=== PATIENT | female | born 1930 | race Hispanic/Latino ===

== ENCOUNTER 2017-01-21 13:59 | Inpatient (IN) | payer MEDICARE ==
[2017-01-21] MEDS ORDERED: TDAP Vaccine 0.5 mL Syr IM ONE (14:23)
--- NOTE | 2017-01-21 14:25 | ED PDOC ---
Arrival/HPI - General Chief Complaint: Trauma Time Seen by Provider: 01/21/17 14:06 Historian: Patient - History of Present Illness Narrative History of Present Illness (Text): 01/21/17 14:12 Rosemary Power is an 86 year old female, whose past medical history includes diabetes, CAD with 2 coronary stents, hypertension, hypercholesterolemia, arthritis, and multiple UTIs, who presents to the emergency department complaining of a syncopal episode prior to arrival. Patient states that she was sitting in a chair but does not recall what happened. Patient was found on the floor. Patient indicates bruising and swelling to her face. Patient denies any complaint before/after incident or any other complaint at this time. Time/Duration: Prior to Arrival Symptom Onset: Sudden Symptom Course: Improving Severity Level: Mild Activities at Onset: Rest Context: Home Past Medical History - Provider Review Nursing Documentation Reviewed: Yes - Infectious Disease Hx of Infectious Diseases: None - Reproductive Menopause: Yes - Cardiac Hx Cardiac Disorders: Yes Hx Hypertension: Yes - Pulmonary Hx Respiratory Disorders: No - Neurological HX Cerebrovascular Accident: Yes - HEENT Hx HEENT Disorder: Yes Hx Cataracts: Yes (Left eye with sx) - Renal Hx Renal Disorder: No - Endocrine/Metabolic Hx Diabetes Mellitus Type 2: Yes - Hematological/Oncological Hx Blood Transfusions: No Hx Blood Transfusion Reaction: No - Integumentary Hx Dermatological Disorder: No - Musculoskeletal/Rheumatological Hx Arthritis: Yes - Gastrointestinal Hx Gastrointestinal Disorders: Yes (CONSTIPATION,GI BLEED) - Genitourinary/Gynecological Hx Genitourinary Disorders: Yes (UTI) Hx Reproductive Disorders: No - Psychiatric Hx Psychophysiologic Disorder: Yes Hx Depression: Yes Hx Substance Use: No - Surgical History Hx Coronary Stent: Yes (x2) - Anesthesia Hx Anesthesia: Yes Hx Anesthesia Reactions: No Hx Malignant Hyperthermia: No - Suicidal Assessment Feels Threatened In Home Enviroment: No Family/Social History - Physician Review Nursing Documentation Reviewed: Yes Family/Social History: No Known Family HX Smoking Status: Never Smoked Hx Alcohol Use: No Hx Substance Use: No Allergies/Home Meds Allergies/Adverse Reactions: Allergies No Known Allergies Allergy (Verified 01/21/17 14:13) Home Medications: Home Meds Medication Instructions Recorded Confirmed Atorvastatin [Lipitor] 10 mg PO DIN 09/03/16 01/21/17 Calcium/Vitamin D [Oyster Shell 1 tab PO DAILY 09/03/16 01/21/17 Calcium/Vitamin D 500 mg-200 IU] Cholecalciferol [Vitamin D 1000 IU] 1,000 unit PO DAILY 09/03/16 01/21/17 Enalapril Maleate [Vasotec] 50 mg PO DAILY 09/03/16 01/21/17 Ferrous Sulfate [Feosol] 500 mg PO DAILY 09/03/16 01/21/17 GlipiZIDE [Glucotrol] 5 mg PO BID 09/03/16 01/21/17 Insulin Glargine, Recombina 15 unit SUBCUT BID 09/03/16 01/21/17 [Lantus] Metoprolol Succinate [Toprol XL] 50 mg PO DAILY 09/03/16 01/21/17 Sertraline [Zoloft] 50 mg PO DAILY 09/03/16 01/21/17 Aspirin [Ecotrin] 81 mg PO DAILY 01/21/17 01/21/17 Insulin Human Regular [HumuLIN R] 4 units SUBCUT ACTID PRN 01/21/17 01/21/17 Review of Systems - Physician Review All systems were reviewed & negative as marked: Yes - Review of Systems Constitutional: absent: Fevers, Night Sweats Eyes: absent: Vision Changes ENT: absent: Hearing Changes Respiratory: absent: SOB, Cough Cardiovascular: Syncope. absent: Chest Pain, Other Gastrointestinal: absent: Abdominal Pain Genitourinary Female: absent: Dysuria Musculoskeletal: absent: Arthralgias Skin: absent: Rash, Pruritis Neurological: absent: Headache Endocrine: absent: Diaphoresis Hemo/Lymphatic: absent: Adenopathy Psychiatric: absent: Anxiety Physical Exam Vital Signs Reviewed: Yes Vital Signs Temp Pulse Resp BP Pulse Ox 01/21/17 18:01 97.9 F 71 20 129/72 01/21/17 17:59 97.9 F 71 20 129/72 01/21/17 17:41 98 F 75 19 127/72 01/21/17 17:30 97.7 F 85 19 132/75 01/21/17 17:02 98.5 F 75 20 129/82 99 01/21/17 14:06 97.4 F L 72 20 109/53 L 100 Temperature: Hypothermic Blood Pressure: Hypotensive Pulse: Regular Respiratory Rate: Normal Appearance: Positive for: Well-Appearing, Non-Toxic, Comfortable Pain Distress: None Mental Status: Positive for: Alert and Oriented X 3 - Systems Exam Head: Present: Atraumatic, Normocephalic Pupils: Present: PERRL Extroacular Muscles: Present: EOMI Conjunctiva: Present: Normal Mouth: Present: Moist Mucous Membranes Nose (External): Present: Other (Swelling and ecchymosis to bridge of nose) Neck: Present: Normal Range of Motion Respiratory/Chest: Present: Clear to Auscultation, Good Air Exchange. No: Respiratory Distress, Accessory Muscle Use Cardiovascular: Present: Regular Rate and Rhythm, Normal S1, S2. No: Murmurs Abdomen: Present: Normal Bowel Sounds. No: Tenderness, Distention, Peritoneal Signs Back: Present: Normal Inspection Upper Extremity: Present: Normal Inspection. No: Cyanosis, Edema Lower Extremity: Present: Normal Inspection. No: Edema Neurological: Present: GCS=15, CN II-XII Intact, Speech Normal, Motor Func Grossly Intact, Normal Sensory Function, Normal Cerebellar Funct, Norm Deep Tendon Reflexes, Gait Normal, Memory Normal, Normal 2Pt Descrimination Skin: Present: Warm, Dry, Normal Color. No: Rashes Psychiatric: Present: Alert, Oriented x 3, Normal Insight, Normal Concentration Medical Decision Making ED Course and Treatment: 01/21/17 14:26 Impression: 86 year old female complaining of syncopal episode prior to arrival Differential Diagnosis include but are not limited to: r/o cardiac, metabolic, intracranial, anemia etiology Plan: -- EKG -- Chest X-ray -- Head CT w/o contrast -- Maxillofacial CT w/o contrast -- Urinalysis -- Labs -- Boostrix Vaccine -- Reassess and disposition Prior Visits: Notes and results from previous visits were reviewed. Patient last seen in ED on 09/03/16 for generalized weakness that day. Patient was admitted to hospitalist care for further evaluation. Progress Notes: EKG shows NSR at [address]-segment elevations, normal intervals. with no prior for comparison. Interpreted by me. 01/21/17 15:23 01/21/17 15:28 01/21/17 15:33 noted anemia, pt brown stool guiac pos. blood ordered. abd soft nottp 01/21/17 15:36 dr kauffman bedside accepts. 01/21/17 15:38 - Lab Interpretations Lab Results: 01/21/17 14:40 01/21/17 14:40 Lab Results 01/21/17 14:40: Sodium 137, Potassium 5.0, Chloride 104, Carbon Dioxide 23, Anion Gap 15, BUN 48 H, Creatinine 1.0, Est GFR ( Amer) > 60, Est GFR ( Non-Af Amer) 53, Random Glucose 131 H, Calcium 9.1, Magnesium 1.9, Total Bilirubin 0.5, AST 29, ALT 28, Alkaline Phosphatase 47, Lactate Dehydrogenase 515, Total Creatine Kinase 216, Troponin I < 0.01, Total Protein 6.7, Albumin 3.6, Globulin 3.1, Albumin/Globulin Ratio 1.2 01/21/17 14:40: PT 11.4, INR 1.06, APTT 24.5 01/21/17 14:40: WBC 11.9 H D, RBC 2.32 L, Hgb 7.9 L D, Hct 24.5 L, MCV 105.6 H, MCH 34.1, MCHC 32.2, RDW 17.1 H, Plt Count 317, MPV 10.2, Gran % 75.2 H, Lymph % (Auto) 16.5 L, [place] % (Auto) 6.1 H, Eos % (Auto) 1.9, Baso % (Auto) 0.3, Gran # 8.94 H, Lymph # 2.0, [place] # 0.7 H, Eos # 0.2, Baso # 0.03 - RAD Interpretation Radiology Orders: 01/21/17 14:21 CHEST PORTABLE [RAD] Stat 01/21/17 14:23 HEAD W/O CONTRAST [CT] Stat MAXILLOFACIAL W/O CONTRAST [CT] Stat - Medication Orders Current Medication Orders: Atorvastatin Calcium (Lipitor) 10 mg PO DIN [facility] Calcium/Vitamin D (Oscal-D 250 Mg-125 Units Tab) 2 tab PO DAILY [facility] Last Admin: 01/22/17 09:41 Dose: 2 tab Glipizide (Glucotrol) 5 mg PO BID [facility] Last Admin: 01/22/17 09:41 Dose: 5 mg Metoprolol Succinate (Toprol Xl) 50 mg PO DAILY [facility] Last Admin: 01/22/17 09:41 Dose: 50 mg Non-Formulary Medication (Enalapril Maleate [Vasotec]) 50 mg PO DAILY [facility] Non-Formulary Medication (Ferrous Sulfate [Feosol]) 500 mg PO DAILY [facility] Non-Formulary Medication (Insulin Glargine, Recombina [Lantus]) 15 unit SUBCUT BID [facility] Sertraline HCl (Zoloft) 50 mg PO DAILY [facility] Last Admin: 01/22/17 09:41 Dose: 50 mg Discontinued Medications Tetanus/Reduced Diphtheria/Acell Pertussis (Boostrix Vaccine Inj) 0.5 ml IM .ONCE ONE Stop: 01/21/17 14:24 Last Admin: 01/21/17 16:44 Dose: 0.5 ml - Scribe Statement The provider has reviewed the documentation as recorded by the Maurice Chen Provider Scribe Attestation: All medical record entries made by the Vickieibmichelle were at my direction and personally dictated by me. I have reviewed the chart and agree that the record accurately reflects my personal performance of the history, physical exam, medical decision making, and the department course for this patient. I have also personally directed, reviewed, and agree with the discharge instructions and disposition. Disposition/Present on Arrival - Present on Arrival Any Indicators Present on Arrival: No History of DVT/PE: No History of Uncontrolled Diabetes: No Urinary Catheter: No History of Decub. Ulcer: No History Surgical Site Infection Following: None - Disposition Have Diagnosis and Disposition been Completed?: Yes Diagnosis: Anemia, Syncope Disposition: HOSPITALIZED Disposition Time: 03:00 Patient Problems: Current Active Problems Problem Status Onset Anemia Acute Syncope Acute Condition: FAIR
[2017-01-21 15:05] LABS: ADD MANUAL DIFF? NO
[2017-01-21 15:07] LABS: BASO # 0.03 K/mm3 (0.0-2.0); BASO % 0.3 % (0.0-3.0); EOS # 0.2 (0.0-0.7); EOS % 1.9 % (1.5-5.0); GRAN # 8.94 (1.4-6.5); GRAN % 75.2 % (50.0-68.0); HEMATOCRIT 24.5 % (36.0-48.0); LYMPH % 16.5 % (22.0-35.0); MEAN CELL VOLUME 105.6 fL (80.0-105.0); MEAN CORPUSCULAR HEMOGLOBIN 34.1 pg (25.0-35.0); MEAN CORPUSCULAR HGB CONC 32.2 g/dl (31.0-37.0); MEAN PLATELET VOLUME 10.2 fl (7.0-11.0); MONO # 0.7 (0.1-0.6); MONO % 6.1 % (1.0-6.0); PLATELET COUNT 317 10^3/uL (120.0-450.0); RED CELL DISTRIBUTION WIDTH 17.1 % (11.5-14.5); WHITE BLOOD COUNT 11.9 10^3/ul (4.5-11.0)
--- NOTE | 2017-01-21 15:18 | CT ---
PROCEDURE: CT HEAD WITHOUT CONTRAST. HISTORY: syncope COMPARISON: 05/13/2016 TECHNIQUE: Axial computed tomography images were obtained through the head/brain without intravenous contrast. Radiation dose: Total exam DLP = 743 mGy-cm. This CT exam was performed using one or more of the following dose reduction techniques: Automated exposure control, adjustment of the mA and/or kV according to patient size, and/or use of iterative reconstruction technique. FINDINGS: HEMORRHAGE: No intracranial hemorrhage. BRAIN: No mass effect or edema. There is an old lacunar infarct in the left basal ganglia. Chronic microvascular changes are seen in the periventricular white matter left greater than right. There are no acute findings VENTRICLES: Unremarkable. No hydrocephalus. CALVARIUM: Unremarkable. PARANASAL SINUSES: Unremarkable as visualized. No significant inflammatory changes. MASTOID AIR CELLS: Unremarkable as visualized. No inflammatory changes. OTHER FINDINGS: None. IMPRESSION: No acute intracranial finding
[2017-01-21 15:19] LABS: INR 1.06 (0.93-1.08); PARTIAL THROMBOPLASTIN TIME 24.5 Seconds (23.7-30.8)
[2017-01-21 15:23] LABS: ALB/GLOB RATIO 1.2 (1.1-1.8); ALKALINE PHOSPHATASE 47 U/L (38-133); ALT/SGPT 28 U/L (7-56); AST/SGOT 29 U/L (15-39); BILIRUBIN,TOTAL 0.5 mg/dL (0.2-1.3); BLOOD UREA NITROGEN 48 mg/dL (7-21); CALCIUM 9.1 mg/dL (8.4-10.5); CARBON DIOXIDE 23 mmol/L (21-33); CHLORIDE 104 mmol/L (98-107); GFR AFRICAN-AMERICAN > 60; GLUCOSE,RANDOM 131 mg/dL (70-110); MAGNESIUM 1.9 mg/dL (1.7-2.2); SODIUM 137 mmol/L (132-148); TOTAL PROTEIN 6.7 g/dL (5.8-8.3)
--- NOTE | 2017-01-21 15:32 | CT ---
PROCEDURE: CT MAXILLOFACIAL BONES WITHOUT CONTRAST HISTORY: head injury COMPARISON: None TECHNIQUE: Contiguous axial CT images of the maxillofacial bones were obtained. Coronal and sagittal reformats were generated. Radiation dose: Total exam DLP = 690 mGy-cm. This CT exam was performed using one or more of the following dose reduction techniques: Automated exposure control, adjustment of the mA and/or kV according to patient size, and/or use of iterative reconstruction technique. FINDINGS: NASAL BONES: Unremarkable. ORBITS: Unremarkable. PARANASAL SINUSES/ MASTOIDS: Clear. MAXILLA: Unremarkable. MANDIBLE/ TEMPOROMANDIBULAR JOINTS: Unremarkable. SKULL BASE: Unremarkable. TEMPORAL BONES: Middle ears and mastoid grossly unremarkable. OTHER FINDINGS: None. IMPRESSION: Negative study
[2017-01-21 15:33] LABS: TROPONIN I < 0.01 ng/mL
--- NOTE | 2017-01-21 15:36 | RAD ---
HISTORY: syncope COMPARISON: 09/03/2016 FINDINGS: LUNGS: No active pulmonary disease. PLEURA: No significant pleural effusion identified, no pneumothorax apparent. CARDIOVASCULAR: Normal. OSSEOUS STRUCTURES: No significant abnormalities. VISUALIZED UPPER ABDOMEN: Normal. OTHER FINDINGS: None. IMPRESSION: No active disease.
[2017-01-21 22:28] VITALS: BMI 31.5
[2017-01-22 07:58] LABS: HEMATOCRIT 29.8 % (36.0-48.0)
[2017-01-22] MEDS: Metoprolol Succinate 50 mg XL Tab PO SCH (09:41)
[2017-01-22] MEDS: Calcium-Vit D 250 mg-125 Units Tab UD PO SCH (09:41)
[2017-01-22] MEDS ORDERED: VITAMIN D PO SCH (10:00)
[2017-01-22] MEDS ORDERED: FERROUS SULFATE PO SCH (10:00)
[2017-01-22] MEDS ORDERED: ENALAPRIL MALEATE PO SCH (10:00)
[2017-01-22] MEDS ORDERED: CALCIUM PO SCH (10:00)
[2017-01-22] MEDS ORDERED: Non Formulary Medication (Insulin Glargine, Recombina [Lantus] 15 UNIT) SUBCUT SCH (10:00)
[2017-01-22] MEDS ORDERED: [UNRECOGNIZED DRUG - OTHER] PO SCH (10:00)
[2017-01-22] MEDS: Insulin Detemir 100 units/ml Vial (Levemir) SC SCH (21:15)
--- NOTE | 2017-01-23 01:26 | CARD ---
APPROVED REPORT EKG Measurement Heart [id number] <Conclusion> Normal sinus rhythm Low voltage QRS Septal infarct, age undetermined Abnormal ECG
[2017-01-23 06:34] LABS: HEMATOCRIT 28.2 % (36.0-48.0); MEAN CELL VOLUME 101.4 fL (80.0-105.0); MEAN CORPUSCULAR HEMOGLOBIN 33.1 pg (25.0-35.0); MEAN CORPUSCULAR HGB CONC 32.6 g/dl (31.0-37.0); MEAN PLATELET VOLUME 10.1 fl (7.0-11.0); RED CELL DISTRIBUTION WIDTH 17.8 % (11.5-14.5)
[2017-01-23 06:49] LABS: BLOOD UREA NITROGEN 48 mg/dL (7-21); CALCIUM 9.1 mg/dL (8.4-10.5); CARBON DIOXIDE 25 mmol/L (21-33); CHLORIDE 107 mmol/L (98-107); CHOLESTEROL 118 mg/dL (130-200); GFR AFRICAN-AMERICAN > 60; GLUCOSE,RANDOM 144 mg/dL (70-110); POTASSIUM 4.7 mmol/L (3.6-5.0); SODIUM 140 mmol/L (132-148)
[2017-01-23 07:06] LABS: IRON 88 ug/dL (45-180)
--- NOTE | 2017-01-23 08:23 | HP ---
The patient is an 86-year-old female. CHIEF COMPLAINT: Fall, facial injuries, syncope. HISTORY OF PRESENT ILLNESS: The patient is an 86-year-old female whose past medical history is coron lelia artery disease with 2 coronary stents, hypertension, hypercholesterolemia, arthritis, multiple UT Is. Came to the Emergency Department complaining of syncopal episode prior to arrival. The patient states that she was sitting in the chair, but does not recall what happened. The patient was found o n the floor and indicates bruising and swelling on the face and body. The patient denies any complai nts before and after incident or any other complaint at this time. PAST MEDICAL HISTORY: The patient has menopause, hypertension, left eye with surgery, cataract remov al, diabetes mellitus, uncontrolled, arthritis, history of UTI, history of psychosocial disorder, his tory of coronary artery stents x 2. FAMILY HISTORY: Father and mother noncontributory. HABITS: Never smoked, no drugs, no ethanol. ALLERGIES: The patient is not allergic with any medications. HOME MEDICATIONS: Lipitor, calcium, vitamin, Vasotec, Feosol, Glucotrol, insulin, Toprol, Zoloft, Ec otrin, insulin. REVIEW OF SYSTEMS: The patient seen and examined in the Emergency Room, and 's older daughter was sitting on the bedside. No headache, no dizziness right now. No shortness of breath, n o chest pain, no palpitation. Having scar maryuri of surgery on the chest, headache. No nausea, vomiti ng, diarrhea. PHYSICAL EXAMINATION: VITAL SIGNS: Temperature 97.4, pulse 72, respirations 20, blood pressure 109/50, pulse oximeter 98%. HEENT: Head normocephalic, atraumatic. Eyes: PERRLA. Extraocular movements intact. Conjunctivae pink. Eyelids unremarkable. Nose patent. Mucous membranes moist. NECK: Supple. No carotid bruit, no JVD, no thyromegaly. CHEST: Bilaterally symmetrical. HEART: S1, S2 positive. LUNGS: Clear to auscultation. ABDOMEN: Soft. Bowel sounds positive. No organomegaly. EXTREMITIES: No edema, no cyanosis. NEUROLOGIC: The patient is awake, alert, moving all 4 extremities. No focal deficit. ASSESSMENT AND PLAN: The patient is an 86-year-old female, came with anemia, syncopal attack, status post blood transfusion. Maxillofacial CAT scan is a negative study. CAT scan of the head shown by me and looks comfortable. No nausea, vomiting, diarrhea. No hematuria, no hematochezia. No swellin g of the legs. No chest pain, palpitations. Discussion done with the and the [id number]. Will follow up. Margaret Gomez MD cc: [id number] TT: 01/22/2017 08:52:38 en
--- NOTE | 2017-01-23 08:37 | PN ---
DATE: 01/22/2017 SUBJECTIVE: The patient seen and examined on the bedside. was standing on the bedside also. On the face, around the eyes, she is getting discoloration, like raccoon eyes. Nose skin is getting better. As per patient , no nausea, vomiting, or diarrhea; no fever, no chills; no headache, no dizziness; no swelling of the legs; no facial pain. PHYSICAL EXAMINATION: VITAL SIGNS: Temperature 97, pulse 75, blood pressure 123/51, respiratory rate 16, oxygenation 98. HEENT: Head normocephalic. Eyes: Extraocular muscles intact. Conjunctivae are clear. Skin around the eye is getting bluish color. Nose patent. Skin of the nose has scratches. Mucous membranes moist. NECK: Supple. No carotid bruit. No JVD or thyromegaly. CHEST: Bilaterally symmetrical. HEART: S1, S2 positive. LUNGS: Clear to auscultation. ABDOMEN: Soft. Bowel sounds present. No organomegaly. EXTREMITIES: No edema, no cyanosis. NEUROLOGIC: The patient is awake, alert. Moving all 4 extremities. No focal deficits. MEDICATIONS: Ferrous sulfate, Glucotrol, Levemir, Lipitor, Zestril, Zoloft. LABORATORY DATA: White blood cells 11.9. Hemoglobin on admission was 7.9; now it is 9.8. Hematocrit 29.8, platelets 317. Sodium 137, potassium 5.0, BUN 48, creatinine 1.0, glucose 131. ASSESSMENT AND PLAN: The patient is an 86-year-old lady with leukocytosis, came with symptomatic severe anemia; after packed red blood cells, hemoglobin is improving; hyperglycemia, came with syncopal attack; facial injuries, improving; has history of diabetes mellitus, with 2 coronary stents, hypertension, hypercholesterolemia, arthritis, multiple times urinary tract infections, obesity, history of cerebrovascular accident, surgery of the left eye for cataract, history of constipation and gastrointestinal bleeding, depression, coronary stents x 2 and. GI and DVT prophylaxis. 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 Will follow up. Margaret Gomez MD cc: [id number] TT: 01/23/2017 08:06:05 Confirmation # [id number] Dictation # [id number] sandra CRUZ
[2017-01-23] MEDS ORDERED: Gadodiamide 287 MG/ML VIAL (15ML) IV ONE (11:59)
[2017-01-23] MEDS: Calcium-Vit D 250 mg-125 Units Tab UD PO SCH (12:54)
[2017-01-23] MEDS: Metoprolol Succinate 50 mg XL Tab PO SCH (12:54)
--- NOTE | 2017-01-23 13:01 | MRI ---
PROCEDURE: MRI BRAIN WITH AND WITHOUT CONTRAST HISTORY: syncopy COMPARISON: 05/08/2013 MRI TECHNIQUE: Multiplanar, multisequence MR images of the brain were obtained with and without intravenous contrast enhancement. 15 cc of Omniscan FINDINGS: HEMORRHAGE: None DWI: No evidence of an acute or early subacute infarction. BRAIN PARENCHYMA: No mass,mass effect or edema. There is an old lacunar infarcts in the left basal ganglia and pena radiata. There is some ipsilateral dilatation of the left lateral ventricle. Chronic microvascular changes are seen. ENHANCEMENT: No abnormal intracranial enhancement. VENTRICLES: Unremarkable. No hydrocephalus. CRANIUM: Unremarkable. ORBITS: Grossly unremarkable. PARANASAL SINUSES/MASTOIDS: Clear VASCULAR SYSTEM: Skull base flow voids intact. OTHER FINDINGS: None . IMPRESSION: No acute intracranial findings.
--- NOTE | 2017-01-23 13:51 | CON ---
DATE: 01/23/2017 REASON FOR CONSULTATION: Episode of passing out. HISTORY OF PRESENT ILLNESS: The patient is an 86-year-old female who was admitted after episode of p assing out. The patient remembers sitting in a chair and after that she does not remember what happe toñito. Her heard a thump and when he went to the room, she was on the floor. The patient does not remember what happened. She denied any chest pain, palpitation prior to the episode. Denies to have any focal weakness in arms or legs. Denies any dizziness. REVIEW OF SYSTEMS: Denies any chest pain, shortness of breath, abdominal pain, constipation, diarrhe a, dysuria, pyuria, cough or sputum production. PAST MEDICAL HISTORY: Includes diabetes mellitus, coronary artery disease, hypertension, arthritis. PAST SURGICAL HISTORY: Includes cardiac stent placement. MEDICATIONS AT HOME: Included metoprolol, glipizide, enalapril, Zoloft, Lipitor, Ecotrin, Humulin, L antus, ferrous sulfate, vitamin ____. ALLERGIES: No known drug allergies. SOCIAL HISTORY: Denies smoking, use of alcohol or illicit drugs. FAMILY HISTORY: Reviewed and noncontributory to the case. PHYSICAL EXAMINATION: GENERAL: The patient is an elderly pleasant female lying on the bed in no acute distress. VITAL SIGNS: Her blood pressure is 139/64, heart rate is 89 per minute, breathing at the rate of 16 per minute, temperature is 98.2 degrees Fahrenheit. HEENT: Head is normocephalic. There is mild periorbital ecchymosis. Abrasion noted on the nose. NECK: Supple. There are no carotid bruits. LUNGS: Clear. CARDIOVASCULAR: S1, S2 audible. No murmurs. ABDOMEN: Soft and nontender. Bowel sounds present. NEUROLOGIC EXAMINATION: MENTAL STATUS: The patient is awake, alert, oriented to time, place, person. Speech is fluent. Nam ing and repetition normal. Memory and cognition are intact. CRANIAL NERVE EXAMINATION: Pupils are 3 mm bilaterally reactive to light. Visual hansen are full. Extraocular movements are intact. There is no facial asymmetry. Palate is upgoing bilaterally and t ongue is midline. MOTOR EXAMINATION: Tone is normal. Power is 5/5 bilaterally in all extremities. Reflexes +2 and sy mmetrical. Plantars downgoing bilaterally. CEREBELLAR EXAMINATION: [id number] shows no dysmetria. Gait is deferred at the moment. SENSORY: Intact to soft touch, pinprick, vibration. GAIT: Deferred at the moment. LABORATORY DATA: Labs reviewed, shows WBC of 7.0, hemoglobin 9.2. On admission, her hemoglobin was 7.9. Hematocrit at the moment is 28.2. Her platelets 258. Sodium is 140, potassium 4.7, chloride 1 07, carbon dioxide content 25, BUN of 48, creatinine 0.9, and glucose of 144. She had a CT scan of t he head done which shows no acute intracranial pathology. IMPRESSION: Syncope, rule out seizure versus cardiac arrhythmias. RECOMMENDATIONS: 1. The patient to have MRI of the brain without contrast. 2. The patient also to have a carotid Doppler study. 3. The patient to have an electroencephalogram. 4. The patient to have cardiac monitoring to rule out any cardiac arrhythmias. 5. Please continue supportive care and other treatment. Thank you for the opportunity to participate in the care of this patient. Bessie Owens MD cc: [id number] TT: 01/23/2017 13:51:03 Confirmation # [id number] Dictation # [id number]
--- NOTE | 2017-01-23 14:06 | CON ---
DATE: 01/23/2017 Seen and examined at the bedside earlier today. The chart was reviewed. REQUEST FOR CONSULT: Anemia. HISTORY OF PRESENT ILLNESS: This is an 86-year-old female with a past medical history of hypertensio n, diabetes mellitus, coronary artery disease x 2 stents. Came to the ER complaining of syncopal epi sode. The patient states she was sitting in a chair and fell at home. The patient was found on the floor with bruising and swelling on the face and body. She does have a scratch on her nose. The pat ient denies any nausea, vomiting. No abdominal pain. On admission, the patient had a head CT and th at was negative for any bleeding or infarction. The patient has been reported having tarry stools la night and this morning. The patient states she is on iron so her stool is already dark but denies any bright red blood. No complaints of any acid reflux or any abdominal pain. The patient on admis rico was found to have a hemoglobin of 7.9. She was given 2 units of packed RBCs. The patient was l ast admitted back in 08/2016. She had an endoscopy for melena. She was found to have 2 superficial gastric ulcers and also 2 cratered duodenal ulcers. No active bleeding. Biopsies were done, no H. p ylori. The patient had endoscopy done. The biopsies were negative for any H. pylori, showed inflamm ation. The patient never had a colonoscopy. The patient denies any symptoms of acid reflux. No com plaints of any difficulty swallowing. PAST MEDICAL HISTORY: As stated above, peptic ulcer disease, hypertension, diabetes mellitus, obesit y, arthritis, UTI, coronary artery disease with cardiac stents. Denies anticoagulants, ____. Hyperl ipidemia, CVA, depression. SURGICAL HISTORY: Coronary artery disease, stents x 2. FAMILY HISTORY: Noncontributory at this time. ALLERGIES: No known drug allergies. MEDICATIONS: Reviewed as per MAR. SOCIAL HISTORY: Denies smoking, ETOH, or substance abuse. REVIEW OF SYSTEMS: Systems reviewed with positive findings, see HPI. VITAL SIGNS: Temperature is 98.2, blood pressure is 159/69, pulse is 87, respirations 18, 97 nasal c annula. LABORATORY DATA: WBC is 11.0. H and H is 9.2 and 28.2, platelets are 258. Last PT is from 01/21 an d the PT is 11.4. INR is 1.06, PTT 24.5. Sodium is 140, K is 4.7, BUN 48, creatinine is 0.9. Iron studies done, iron 88, TIBC 336, and percent saturation is 26. B12 and folate is pending. The patie nt had chest x-ray on 01/21 that was negative for any pulmonary disease. No pleural effusion. No pn eumothorax. No active disease. Head CT: No acute intracranial findings. The patient had carotid a rtery ultrasound and brain MRI of which results are pending. PHYSICAL EXAMINATION: HEENT: Sclera is anicteric. NECK: Supple. CARDIAC: S1, S2. LUNGS: Sounds with decreased breath sounds at the bases, but no rales or wheeze. ABDOMEN: With bowel sounds, soft, nontender. No rebound or guarding. EXTREMITIES: Positive pedal pulses, no edema. FACIAL: The patient has some dried abrasions on her nose. NEUROLOGIC: Awake, alert, and oriented. ASSESSMENT: This is an 86-year-old female with a history of coronary artery disease with cardiac rocío nts x 2, diabetes mellitus, arthritis, hypertension. Came in after a syncopal episode, found to have anemia and now having melena. It looks like probable upper gastrointestinal bleed. The patient troncoso s have a history of peptic ulcer disease, ulcers in the gastric and duodenum. PLAN: We will start patient on Protonix q.12, give first dose now. Change her diet to a clear liqui d diet. Plan for endoscopy for tomorrow. Monitor H and H. The patient is on iron supplements. Rick nk you for this followup. ____ B12 and folate and check CBC around 2:00 this afternoon. Thank you for this consult and for allowing us to participate in your patient's care. We will make kira ontiveros recommendations based upon patient's clinical course. The patient was seen and case discussed with Dr. Guerrero. Deanne Gerri BENNIE cc: [id number] TT: 01/23/2017 14:05:13 Confirmation # [id number] Dictation # [id number] sn
[2017-01-23 15:39] LABS: FOLATE > 20.0 ng/mL
[2017-01-23 15:39] LABS: HEMATOCRIT 27.5 % (36.0-48.0); MEAN CELL VOLUME 101.9 fL (80.0-105.0); MEAN CORPUSCULAR HGB CONC 32.4 g/dl (31.0-37.0); MEAN PLATELET VOLUME 9.8 fl (7.0-11.0); RED CELL DISTRIBUTION WIDTH 17.8 % (11.5-14.5); WHITE BLOOD COUNT 10.9 10^3/ul (4.5-11.0)
--- NOTE | 2017-01-23 21:02 | US ---
PROCEDURE: Bilateral carotid artery duplex ultrasound HISTORY: Carotid stenosis syncope PHYSICIAN(S): Kg Rios MD. TECHNIQUE: Duplex sonography and color-flow Doppler were used to evaluate the carotid bifurcations and limited segments of the vertebral arteries bilaterally. FINDINGS: There is moderate to extensive irregular heterogeneous echogenic plaque noted at the carotid bifurcations bilaterally. The peak systolic velocity in the proximal right internal carotid artery is 90 cm/sec. This corresponds to a 20 to 39% proximal right ICA stenosis. Normal systolic velocities are noted in the proximal right external carotid artery. There is antegrade flow in the right vertebral artery. The peak systolic velocity in the proximal left internal carotid artery is 108 cm/sec. This corresponds to a 40-59 percent proximal left ICA stenosis. Normal systolic velocities are noted in the proximal left external carotid artery. There is antegrade flow in the left vertebral artery. IMPRESSION: 1. 40-59 percent proximal left ICA stenosis. 2. 20- 39 percent proximal right ICA stenosis. 3. Antegrade flow in both vertebral arteries.
[2017-01-23] MEDS: Insulin Reg-LOW-Coverage SC SCH (23:08)
[2017-01-23] MEDS: Insulin Detemir 100 units/ml Vial (Levemir) SC SCH (23:09)
[2017-01-24 06:15] LABS: ADD MANUAL DIFF? NO
[2017-01-24 06:20] LABS: BASO # 0.02 K/mm3 (0.0-2.0); BASO % 0.2 % (0.0-3.0); EOS # 0.2 (0.0-0.7); EOS % 1.4 % (1.5-5.0); GRAN % 72.3 % (50.0-68.0); HEMATOCRIT 24.9 % (36.0-48.0); LYMPH # 1.7 (1.2-3.4); LYMPH % 16.5 % (22.0-35.0); MEAN CELL VOLUME 101.6 fL (80.0-105.0); MEAN CORPUSCULAR HEMOGLOBIN 33.1 pg (25.0-35.0); MEAN CORPUSCULAR HGB CONC 32.5 g/dl (31.0-37.0); MEAN PLATELET VOLUME 9.9 fl (7.0-11.0); MONO % 9.6 % (1.0-6.0); PLATELET COUNT 258 10^3/uL (120.0-450.0); RED CELL DISTRIBUTION WIDTH 17.5 % (11.5-14.5); WHITE BLOOD COUNT 10.5 10^3/ul (4.5-11.0)
[2017-01-24] MEDS: Insulin Reg-LOW-Coverage SC SCH ×4 (07:30→21:47)
[2017-01-24] MEDS ORDERED: Propofol 10 mg/ml Inj (20 ML) ONE (08:11)
[2017-01-24] MEDS ORDERED: ePHEDrine 50 mg/ml Inj ONE (08:28)
[2017-01-24] MEDS ORDERED: Sodium Chloride 0.9% 1,000 ML IV SCH (08:45)
[2017-01-24] MEDS: Metoprolol Succinate 50 mg XL Tab PO SCH (09:43)
[2017-01-24] MEDS: Calcium-Vit D 250 mg-125 Units Tab UD PO SCH (09:47)
[2017-01-24] MEDS: Insulin Detemir 100 units/ml Vial (Levemir) SC SCH (21:47)
[2017-01-25 07:57] LABS: ADD MANUAL DIFF? NO
[2017-01-25] MEDS: Insulin Reg-LOW-Coverage SC SCH ×4 (08:00→22:11)
[2017-01-25 08:02] LABS: BASO # 0.03 K/mm3 (0.0-2.0); BASO % 0.4 % (0.0-3.0); EOS # 0.3 (0.0-0.7); EOS % 4.1 % (1.5-5.0); GRAN # 3.87 (1.4-6.5); GRAN % 54.3 % (50.0-68.0); HEMATOCRIT 27.2 % (36.0-48.0); LYMPH # 2.1 (1.2-3.4); LYMPH % 29.1 % (22.0-35.0); MEAN CELL VOLUME 97.8 fL (80.0-105.0); MEAN CORPUSCULAR HEMOGLOBIN 31.7 pg (25.0-35.0); MEAN CORPUSCULAR HGB CONC 32.4 g/dl (31.0-37.0); MEAN PLATELET VOLUME 9.7 fl (7.0-11.0); MONO # 0.9 (0.1-0.6); MONO % 12.1 % (1.0-6.0); PLATELET COUNT 236 10^3/uL (120.0-450.0); RED CELL DISTRIBUTION WIDTH 18.1 % (11.5-14.5); WHITE BLOOD COUNT 7.1 10^3/ul (4.5-11.0)
[2017-01-25 08:16] LABS: BLOOD UREA NITROGEN 35 mg/dL (7-21); CALCIUM 8.6 mg/dL (8.4-10.5); CARBON DIOXIDE 24 mmol/L (21-33); CHLORIDE 106 mmol/L (98-107); GFR AFRICAN-AMERICAN > 60; GLUCOSE,RANDOM 108 mg/dL (70-110); POTASSIUM 4.4 mmol/L (3.6-5.0); SODIUM 136 mmol/L (132-148)
[2017-01-25] MEDS: Calcium-Vit D 250 mg-125 Units Tab UD PO SCH (09:30)
[2017-01-25] MEDS: Metoprolol Succinate 50 mg XL Tab PO SCH (09:31)
--- NOTE | 2017-01-25 09:57 | CP.PCM.PN ---
Subjective - Date & Time of Evaluation Date of Evaluation: 01/25/17 Time of Evaluation: 08:10 - Subjective Subjective: S&E this am. HAd EGD yesterday found multiple ulcers w/ BX. S/P 1 unit PRBC. No reports of overt GI bleed. No c/o abdominal pain, SOB or CP. Objective - Vital Signs/Intake and Output Vital Signs (last 24 hours): Temp Pulse Resp BP Pulse Ox 97.5 F L 83 20 110/70 100 01/25/17 06:00 01/25/17 09:31 01/25/17 06:00 01/25/17 09:31 01/25/17 06:00 Intake and Output: 01/25/17 01/25/17 06:59 18:59 Intake Total 120 Output Total 200 Balance -80 - Medications Medications: Current Medications Atorvastatin Calcium (Lipitor) 10 mg PO DIN [facility] Last Admin: 01/24/17 17:12 Dose: 10 mg Calcium/Vitamin D (Oscal-D 250 Mg-125 Units Tab) 2 tab PO DAILY [facility] Last Admin: 01/25/17 09:30 Dose: 2 tab Ferrous Sulfate (Feosol) 324 mg PO DAILY [facility] Last Admin: 01/25/17 09:31 Dose: 324 mg Glipizide (Glucotrol) 5 mg PO BID [facility] Last Admin: 01/25/17 09:30 Dose: 5 mg Insulin Detemir (Levemir) 15 unit SC HS [facility] Last Admin: 01/24/17 21:47 Dose: Not Given Insulin Human Regular (Humulin R Low) 0 units SC [facility] PRN Reason: Protocol Last Admin: 01/25/17 08:00 Dose: Not Given Lisinopril (Zestril) 20 mg PO DAILY [facility] Last Admin: 01/25/17 09:31 Dose: 20 mg Metoprolol Succinate (Toprol Xl) 50 mg PO DAILY [facility] Last Admin: 01/25/17 09:31 Dose: 50 mg Pantoprazole Sodium (Protonix Inj) 40 mg IVP Q12H [facility] Last Admin: 01/25/17 09:32 Dose: 40 mg Sertraline HCl (Zoloft) 50 mg PO DAILY [facility] Last Admin: 01/25/17 09:31 Dose: 50 mg - Labs Labs: 01/25/17 07:45 01/25/17 07:45 PT 11.4 Seconds (9.9-11.8) 01/21/17 14:40 INR 1.06 (0.93-1.08) 01/21/17 14:40 APTT 24.5 Seconds (23.7-30.8) 01/21/17 14:40 - Constitutional Appears: No Acute Distress - Head Exam Head Exam: NORMAL INSPECTION - Eye Exam Eye Exam: Normal appearance. absent: Scleral icterus - ENT Exam ENT Exam: Mucous Membranes Moist - Neck Exam Neck Exam: Normal Inspection - Respiratory Exam Respiratory Exam: Clear to Ausculation Bilateral, NORMAL BREATHING PATTERN. absent: Respiratory Distress - Cardiovascular Exam Cardiovascular Exam: +S1, +S2 - GI/Abdominal Exam GI & Abdominal Exam: Soft, Normal Bowel Sounds. absent: Guarding, Tenderness, Rebound - Extremities Exam Extremities Exam: absent: Calf Tenderness, Pedal Edema - Neurological Exam Neurological Exam: Alert, Awake, Oriented x3 Assessment and Plan - Assessment and Plan (Free Text) Assessment: ASSESSMENT: Syncopy S/P GIB Anemia, s/p #units PRBC total S/P egd, ulcers gastric, duodenum, and esophageal CAD, s/p stents DM H/O PUD PLAN: Puree diet for 6 weeks repeat EGD 8 weeks continue Protonix BID monitor H/H, overt GI Bleed FU EGD BX FU serum gastrin level discuss egd findings and plan w/ pt. Seen and case discussed with Dr. Guerrero.
[2017-01-25 13:10] LABS: HEMATOCRIT 26.6 % (36.0-48.0); MEAN CELL VOLUME 98.5 fL (80.0-105.0); MEAN CORPUSCULAR HEMOGLOBIN 32.2 pg (25.0-35.0); MEAN CORPUSCULAR HGB CONC 32.7 g/dl (31.0-37.0); MEAN PLATELET VOLUME 9.8 fl (7.0-11.0); RED CELL DISTRIBUTION WIDTH 17.9 % (11.5-14.5); WHITE BLOOD COUNT 7.2 10^3/ul (4.5-11.0)
[2017-01-25] MEDS: Insulin Detemir 100 units/ml Vial (Levemir) SC SCH (22:12)
[2017-01-26 06:08] VITALS: TEMP 98.4
[2017-01-26 06:48] LABS: BLOOD UREA NITROGEN 29 mg/dL (7-21); CALCIUM 8.9 mg/dL (8.4-10.5); CARBON DIOXIDE 25 mmol/L (21-33); CHLORIDE 105 mmol/L (98-107); GFR AFRICAN-AMERICAN > 60; GLUCOSE,RANDOM 126 mg/dL (70-110); POTASSIUM 4.7 mmol/L (3.6-5.0); SODIUM 137 mmol/L (132-148)
[2017-01-26 06:55] LABS: MEAN CELL VOLUME 98.2 fL (80.0-105.0); MEAN CORPUSCULAR HEMOGLOBIN 32.6 pg (25.0-35.0); MEAN CORPUSCULAR HGB CONC 33.2 g/dl (31.0-37.0); MEAN PLATELET VOLUME 9.9 fl (7.0-11.0); RED CELL DISTRIBUTION WIDTH 17.9 % (11.5-14.5); WHITE BLOOD COUNT 7.1 10^3/ul (4.5-11.0)
[2017-01-26] MEDS: Insulin Reg-LOW-Coverage SC SCH (07:47)
[2017-01-26 08:58] VITALS: PULSE 81; RESP 20; O2SAT 96
[2017-01-26] MEDS: Calcium-Vit D 250 mg-125 Units Tab UD PO SCH (09:34)
[2017-01-26] MEDS: Metoprolol Succinate 50 mg XL Tab PO SCH (09:35)
[2017-01-26 09:44] VITALS: BP 108/39
--- NOTE | 2017-01-27 08:04 | PQF ANEMIA ---
This form is a permanent part of the medical record Dr. Gomez, Clarification of your documentation is requested to better reflect the severity of illness and intensity of treatment of your patient. Indicators present: Pt was diagnosed with melena and anemia. Please specify if the anemia is acute or chronic blood loss anemia. Thank you. [x] Anemia [x] Drop in H&H from []___ to []___ [] Hypotension [] GI Bleed [x] Transfusion(s) [] Acute bleed other sites [] Tachycardia [] Surgical Procedure Blood Loss (expected not a complication) Other:[] Location in the medical record that reflects the above clinical findings: [] Treatment Provided: [] blood tansfusion PHYSICIAN'S RESPONSE Based on your medical judgment of the clinical indicators outlined above, are you treating this patient for a known or suspected: [] Acute blood loss anemia [] Chronic blood loss anemia [] Acute on Chronic blood loss anemia [] Anemia due to malignancy [] Anemia due to chemotherapy or radiation therapy [] Anemia of Chronic Disease, please specify: [] [] Other, please indicate type of anemia []____ [] If Unable to Determine, please check the box, sign and date. Present On Admission (POA) Indicator: [] Present at the time of admission [] Not present at the time of admission [] Clinically Undetermined In responding to this query, please exercise your independent professional judgment. The fact that a question is asked does not imply that any particular answer is desired or expected. Thank you for your clarification on this documentation. If you have any questions please call:[ ] * Thank you, [ ]TERESSA CASTELLANOSmerchandise displayer NANCY
--- NOTE | 2017-01-27 23:27 | CP.PCM.PN ---
Subjective - Date & Time of Evaluation Date of Evaluation: 01/25/17 Time of Evaluation: 14:00 - Subjective Subjective: pt is seen and examined at bed side , resting , is on the bed side . no gi bleeding . no sob , chest pain . tolerating food very well . no beckwith , dizzynes . abdominal pain . looking comfortable Objective - Vital Signs/Intake and Output Vital Signs (last 24 hours): Temp Pulse Resp BP Pulse Ox 98.4 F 79 20 134/60 100 01/25/17 18:00 01/25/17 18:00 01/25/17 18:00 01/25/17 18:00 01/25/17 06:00 - Medications Medications: Current Medications Atorvastatin Calcium (Lipitor) 10 mg PO DIN [facility] Last Admin: 01/25/17 17:34 Dose: 10 mg Calcium/Vitamin D (Oscal-D 250 Mg-125 Units Tab) 2 tab PO DAILY [facility] Last Admin: 01/25/17 09:30 Dose: 2 tab Ferrous Sulfate (Feosol) 324 mg PO DAILY [facility] Last Admin: 01/25/17 09:31 Dose: 324 mg Glipizide (Glucotrol) 5 mg PO BID [facility] Last Admin: 01/25/17 17:34 Dose: 5 mg Insulin Detemir (Levemir) 15 unit SC HS [facility] Last Admin: 01/24/17 21:47 Dose: Not Given Insulin Human Regular (Humulin R Low) 0 units SC [facility] PRN Reason: Protocol Last Admin: 01/25/17 17:34 Dose: 1 units Lisinopril (Zestril) 20 mg PO DAILY [facility] Last Admin: 01/25/17 09:31 Dose: 20 mg Metoprolol Succinate (Toprol Xl) 50 mg PO DAILY [facility] Last Admin: 01/25/17 09:31 Dose: 50 mg Pantoprazole Sodium (Protonix Inj) 40 mg IVP Q12H [facility] Last Admin: 01/25/17 09:32 Dose: 40 mg Sertraline HCl (Zoloft) 50 mg PO DAILY [facility] Last Admin: 01/25/17 09:31 Dose: 50 mg - Labs Labs: 01/25/17 12:30 01/25/17 07:45 PT 11.4 Seconds (9.9-11.8) 01/21/17 14:40 INR 1.06 (0.93-1.08) 01/21/17 14:40 APTT 24.5 Seconds (23.7-30.8) 01/21/17 14:40 - Constitutional Appears: No Acute Distress - Head Exam Head Exam: NORMAL INSPECTION, NORMOCEPHALIC - Eye Exam Eye Exam: Normal appearance, PERRL Pupil Exam: NORMAL ACCOMODATION, PERRL - ENT Exam ENT Exam: Mucous Membranes Moist, Normal Exam - Neck Exam Neck Exam: Full ROM, Normal Inspection. absent: Lymphadenopathy - Respiratory Exam Respiratory Exam: Clear to Ausculation Bilateral, NORMAL BREATHING PATTERN - Cardiovascular Exam Cardiovascular Exam: REGULAR RHYTHM, +S1, +S2. absent: Murmur - GI/Abdominal Exam GI & Abdominal Exam: Soft, Normal Bowel Sounds. absent: Tenderness - Rectal Exam Rectal Exam: Deferred, NORMAL INSPECTION - Extremities Exam Extremities Exam: Calf Tenderness, Full ROM, Normal Capillary Refill, Normal Inspection. absent: Joint Swelling, Pedal Edema - Back Exam Back Exam: NORMAL INSPECTION - Neurological Exam Neurological Exam: Abnormal Gait, Alert, Awake, CN II-XII Intact, Normal Gait, Oriented x3 - Psychiatric Exam Psychiatric exam: Normal Affect, Normal Mood - Skin Skin Exam: Intact, Normal Color Assessment and Plan - Assessment and Plan (Free Text) Assessment: 86 years old lady with severe anemia . GI did egd showed multeple gastric ulcers , esophagitis , gastritis dudenitis . s/p blood transfusion . cad, s/pstents , dm , . d/d with dr steele . gi . pt should be on puree diet . monitering H/H . . oob . pt
== END 2017-01-26 11:05 | disposition home or self-care (01) | DRG 378 ==
LOC: ED 13:59 → ERH 15:35 → 2RSO 18:28
PROVIDERS: ADMIT Internal Medicine; ATTEND Internal Medicine
PROC: 30233N1 Transfusion of Nonautologous Red Blood Cells into Peripheral Vein, Percutaneous Approach (ICD-10-PCS; 2017-01-21)
PROC: 0DB68ZX Excision of Stomach, Via Natural or Artificial Opening Endoscopic, Diagnostic (ICD-10-PCS; 2017-01-24)
PROC: 0DB98ZX Excision of Duodenum, Via Natural or Artificial Opening Endoscopic, Diagnostic (ICD-10-PCS; principal; 2017-01-24 08:00)
DX: K92.1 Melena (principal); D62 Acute posthemorrhagic anemia; K25.9 Gastric ulcer, unspecified as acute or chronic, without hemorrhage or perforation; E11.65 Type 2 diabetes mellitus with hyperglycemia; K26.9 Duodenal ulcer, unspecified as acute or chronic, without hemorrhage or perforation; K31.89 Other diseases of stomach and duodenum; K21.0 Gastro-esophageal reflux disease with esophagitis; I10 Essential (primary) hypertension; E78.00 Pure hypercholesterolemia, unspecified; M19.90 Unspecified osteoarthritis, unspecified site; R55 Syncope and collapse; K59.00 Constipation, unspecified; F32.9 Major depressive disorder, single episode, unspecified; I25.10 Atherosclerotic heart disease of native coronary artery without angina pectoris; E78.5 Hyperlipidemia, unspecified; E66.9 Obesity, unspecified; Z68.32 Body mass index [BMI] 32.0-32.9, adult; Z79.82 Long term (current) use of aspirin; Z87.11 Personal history of peptic ulcer disease; Z86.73 Personal history of transient ischemic attack (TIA), and cerebral infarction without residual deficits; Z95.5 Presence of coronary angioplasty implant and graft; Z79.4 Long term (current) use of insulin; Z87.440 Personal history of urinary (tract) infections; Z98.42 Cataract extraction status, left eye

== ENCOUNTER 2017-02-10 22:15 | Inpatient (IN) | payer MEDICARE ==
[2017-02-10 22:15] VITALS: BMI 31.5
[2017-02-10 22:53] LABS: VENOUS BLOOD GAS BASE EXCESS -3.6 mmol/L (0.0-2.0); VENOUS BLOOD GAS PO2 67 mm/Hg (30-55); VENOUS BLOOD PH 7.42 (7.32-7.43)
[2017-02-10 22:58] LABS: BASO # 0.01 K/mm3 (0.0-2.0); BASO % 0.1 % (0.0-3.0); EOS # 0.1 (0.0-0.7); EOS % 0.4 % (1.5-5.0); GRAN # 13.89 (1.4-6.5); GRAN % 84.3 % (50.0-68.0); LYMPH # 2.3 (1.2-3.4); LYMPH % 13.7 % (22.0-35.0); MEAN CELL VOLUME 102.1 fL (80.0-105.0); MEAN CORPUSCULAR HEMOGLOBIN 33.5 pg (25.0-35.0); MEAN CORPUSCULAR HGB CONC 32.8 g/dl (31.0-37.0); MEAN PLATELET VOLUME 10.5 fl (7.0-11.0); MONO # 0.2 (0.1-0.6); MONO % 1.5 % (1.0-6.0); PLATELET COUNT 201 10^3/uL (120.0-450.0); RBC 3.28 10^6/uL (3.5-6.1); RED CELL DISTRIBUTION WIDTH 18.6 % (11.5-14.5); WHITE BLOOD COUNT 16.5 10^3/ul (4.5-11.0)
[2017-02-10 23:09] LABS: ALB/GLOB RATIO 1.3 (1.1-1.8); ALBUMIN 4.4 g/dL (3.0-4.8); ALT/SGPT 32 U/L (7-56); AST/SGOT 33 U/L (15-39); BLOOD UREA NITROGEN 29 mg/dL (7-21); CALCIUM 9.4 mg/dL (8.4-10.5); GFR AFRICAN-AMERICAN > 60; GFR NON-AFRICAN AMERICAN 53; HDL CHOLESTEROL 39 mg/dL (29-60); INR 1.01 (0.93-1.08); PARTIAL THROMBOPLASTIN TIME 26.8 Seconds (23.7-30.8); PROTHROMBIN TIME 10.9 Seconds (9.9-11.8)
[2017-02-10] MEDS ORDERED: Piperacill/Tazo 4.5gm in NS 4.5 GM/100 ML BAG IVPB STA (23:15)
[2017-02-10] MEDS ORDERED: Vancomycin 1gm in NS 250ml 1 GM/250 ML BAG IVPB STA (23:15)
[2017-02-10 23:20] LABS: LDL CHOLESTEROL 83 mg/dL (0-129)
[2017-02-10 23:29] LABS: TROPONIN I < 0.01 ng/mL
--- NOTE | 2017-02-10 23:42 | ED PDOC ---
Arrival/HPI - General Chief Complaint: Altered Mental Status Time Seen by Provider: 02/10/17 22:16 EM Caveat: Altered Mental Status, Dementia - History of Present Illness Narrative History of Present Illness (Text): 02/11/17 00:10 86yo female, last seen normal at 8pm by her , found to have shaking, chills, difficulty speaking. EMS called and brought to the ER for possible code stroke. states pt has a hx of dementia. Past Medical History - Provider Review Nursing Documentation Reviewed: Yes - Infectious Disease Hx of Infectious Diseases: None - Cardiac Hx Cardiac Disorders: Yes Hx Hypertension: Yes - Pulmonary Hx Respiratory Disorders: No - Neurological HX Cerebrovascular Accident: Yes - HEENT Hx HEENT Disorder: Yes Hx Cataracts: Yes (Left eye with sx) - Renal Hx Renal Disorder: No - Endocrine/Metabolic Hx Diabetes Mellitus Type 2: Yes - Hematological/Oncological Hx Blood Transfusions: No Hx Blood Transfusion Reaction: No - Integumentary Hx Dermatological Disorder: No - Musculoskeletal/Rheumatological Hx Arthritis: Yes - Gastrointestinal Hx Gastrointestinal Disorders: Yes (CONSTIPATION,GI BLEED) - Genitourinary/Gynecological Hx Genitourinary Disorders: Yes (UTI) Hx Reproductive Disorders: No - Psychiatric Hx Psychophysiologic Disorder: Yes Hx Depression: Yes Hx Substance Use: No - Surgical History Hx Coronary Stent: Yes (x2) - Anesthesia Hx Anesthesia: Yes Hx Anesthesia Reactions: No Hx Malignant Hyperthermia: No - Suicidal Assessment Feels Threatened In Home Enviroment: No Family/Social History Family/Social History: No Known Family HX Smoking Status: Never Smoked Hx Alcohol Use: No Hx Substance Use: No Allergies/Home Meds Allergies/Adverse Reactions: Allergies No Known Allergies Allergy (Verified 02/10/17 22:24) Home Medications: Home Meds Medication Instructions Recorded Confirmed Aspirin [Adult Low Dose Aspirin EC] 81 mg PO DAILY 02/10/17 02/10/17 Atorvastatin [Lipitor] 10 mg PO DAILY 02/10/17 02/10/17 Calcium Carbonate/Vitamin D3 2 tab PO DAILY 02/10/17 02/10/17 [Calcium 600 + Vit D Softgel] Cholecalciferol [Vitamin D] 1,000 iu PO DAILY 02/10/17 02/10/17 Enalapril Maleate [Vasotec] 10 mg PO DAILY 02/10/17 02/10/17 Ferrous Sulfate [Feosol] 325 mg PO DAILY 02/10/17 02/10/17 Glipizide [Glipizide Xl] 5 mg PO BID 02/10/17 02/10/17 Insulin Glargine, Recombina 15 unit SC HS 02/10/17 02/10/17 [Lantus] Insulin Human Regular [HumuLIN R] 4 units SC BRK PRN 02/10/17 02/10/17 Insulin Human Regular [HumuLIN R] 6 units SC BID PRN 02/10/17 02/10/17 Metoprolol Succinate [Toprol XL] 50 mg PO DAILY 02/10/17 02/10/17 Pantoprazole [Protonix] 40 mg PO DAILY 02/10/17 02/10/17 Review of Systems - Review of Systems Systems not reviewed;Unavailable: Dementia Physical Exam Vital Signs Reviewed: Yes Vital Signs Temp Pulse Resp BP Pulse Ox 02/11/17 01:30 101 F H 100 H 22 99/49 L 95 02/11/17 00:36 102 F H 02/11/17 00:10 108 H 20 101/46 L 97 02/10/17 23:40 111 H 22 104/41 L 96 02/10/17 23:28 100.7 F H 02/10/17 23:25 113 H 22 110/70 90 L 02/10/17 23:10 113 H 22 112/39 L 92 L 02/10/17 22:55 115 H 20 114/42 L 92 L 02/10/17 22:25 100.7 F H 120 H 20 130/75 95 Temperature: Febrile Blood Pressure: Normal Pulse: Tachycardic Respiratory Rate: Normal Appearance: Positive for: Non-Toxic, Comfortable Pain Distress: None Mental Status: Positive for: Confused Finger Stick Blood Glucose: 151 - Systems Exam Head: Present: Atraumatic, Normocephalic Pupils: Present: PERRL Extroacular Muscles: Present: EOMI Conjunctiva: Present: Normal Mouth: Present: Moist Mucous Membranes. No: Dry, Drooling Neck: Present: Normal Range of Motion. No: Meningeal Signs, MIDLINE TENDERNESS Respiratory/Chest: Present: Clear to Auscultation, Good Air Exchange. No: Respiratory Distress, Accessory Muscle Use Cardiovascular: Present: Regular Rate and Rhythm, Normal S1, S2, Peripheal Pulses Present, Tachycardic. No: Murmurs, Irregular Rhythm Abdomen: Present: Normal Bowel Sounds. No: Tenderness, Distention, Peritoneal Signs, Rebound, Guarding Back: Present: Normal Inspection. No: Midline Tenderness, Paraspinal Tenderness Upper Extremity: Present: Normal Inspection. No: Cyanosis, Edema Lower Extremity: Present: Normal Inspection. No: Edema Neurological: Present: Motor Func Grossly Intact, Other (RLE weakness, family report this is chronic due to previous injury and surgery. Pt repeating words without difficulty, but unable to formulate her own sentences) Skin: Present: Warm, Dry, Normal Color. No: Rashes Psychiatric: Present: Alert. No: Anxious, Agitated Medical Decision Making ED Course and Treatment: 02/10/17 22:26 hx obtained from and son, along with EMS EMS reported pt has aphasia with atrial fibrillation on the EKG, which is new pt seen immediately on arrival Code stroke called. 02/10/17 23:42 previous records reviewed, pt has been seen by power and recovery superintendent on 01/25/17, her EGD was found to have multiple ulcers, and she received one unit of blood. CT Head Without Intravenous Contrast FINDINGS: Brain: Old left deep white matter infarct extending from the left basal ganglia through the left periventricular pena radiata and toward the subcortical white matter in the left parietal lobe. Small focus of old infarct in the posterior left cerebellum with some low attenuation extending through the left cerebellar hemisphere and the inferior lateral aspect of uncertain age. There is minimal patchy low attenuation of deep white matter. Upper normal size of peripheral sulci. No hemorrhage. No edema. Ventricles: There is mild prominence of the central ventricular system. Bones/joints: Unremarkable. No acute fracture. Soft tissues: Unremarkable. Sinuses: Unremarkable as visualized. No acute sinusitis. Mastoid air cells: Unremarkable as visualized. No mastoid effusion. IMPRESSION: 1. Minimal chronic ischemic white matter change and atrophy which is similar to 01/21/2017. 2. Old left central infarct extending to subcortical white matter in the left parietal lobe and small old infarct in the posterior left cerebellum which is unchanged from the prior study. 3. Asymmetric decreased attenuation in the inferolateral left cerebellum of uncertain age but appears to be new since the prior study. Correlation with MR may be of benefit for further evaluation. Dictated and Authenticated by: Lupillo Yeh MD 02/10/2017 10:55 PM Eastern Time ([place] & [place]) 02/11/17 00:29 pt has a fever leukocytosis speech improving abx ordered pt in no distress at this time case and results dw Dr. Quan Montes De Oca. Likely a sepsis/infectious picture, along with hx of ulcers and blood transfusion last month, will not proceed with tpa family informed and agree with plan CT result also dw neuro event specialist food demonstrator, states will obtain MRI tmr 02/11/17 00:34 EKG shows sinus tach, 113bpm, no st-segment elevations, PVCs, interpreted by me Chest xray interpreted by ED physician shows no pneumothorax, no cardiomegaly, no infiltrates 02/11/17 02:14 UA with evidence of infection on reeval, pt is speaking full sentences without difficulty, in no distress and with no focal neurological deficits pt's bedside, states that she is now at baseline agrees with admission for further w/u and treatment 02/11/17 02:34 jer Gomez, accepted pt to her service, Dr. Salter on consult for ID - Lab Interpretations Lab Results: 02/10/17 22:30 02/10/17 22:30 Lab Results 02/11/17 01:50: pO2 62 H, VBG pH 7.32, VBG pCO2 41.0, VBG HCO3 21.1, VBG Total CO2 22.4, VBG O2 Sat (Calc) 93.7 H, VBG Base Excess -4.7 L, VBG Potassium 4.0, Glucose 176 H, Lactate 1.7, FiO2 21.0, Sodium 138.0, Chloride 108.0 H, Venous Blood Potassium 4.0 02/11/17 01:20: Urine Color Yellow, Urine Appearance Cloudy, Urine pH 6.0, Ur Specific [place] 1.020, Urine Protein 100 H, Urine Glucose (UA) Negative, Urine Ketones Negative, Urine Blood Small H, Urine Nitrate Negative, Urine Bilirubin Negative, Urine Urobilinogen 0.2, Ur Leukocyte Esterase Large H, Urine RBC 2 - 5 , Urine WBC Tntc, Ur Epithelial Cells 0 - 2, Urine Bacteria Many 02/10/17 22:47: pO2 67 H, VBG pH 7.42, VBG pCO2 31.0 L, VBG HCO3 20.1 L, VBG Total CO2 21.1 L, VBG O2 Sat (Calc) 95.7 H, VBG Base Excess -3.6 L, VBG Potassium 4.3, Glucose 149 H, Lactate 2.9 H, FiO2 21.0, Sodium 136.0, Chloride 105.0, Venous Blood Potassium 4.3 02/10/17 22:30: Blood Type O POSITIVE, Antibody Screen Negative, BBK History Checked Patient has bt 02/10/17 22:30: Sodium 136, Potassium 4.3, Chloride 103, Carbon Dioxide 18 L, Anion Gap 19, BUN 29 H, Creatinine 1.0, Est GFR ( Amer) > 60, Est GFR ( Non-Af Amer) 53, Random Glucose 138 H, Calcium 9.4, Total Bilirubin 0.8, AST 33 , ALT 32, Alkaline Phosphatase 79, Troponin I < 0.01, Total Protein 7.8, Albumin 4.4, Globulin 3.5, Albumin/Globulin Ratio 1.3, Triglycerides 169 H, Cholesterol 159, LDL Cholesterol Direct 83, HDL Cholesterol 39 02/10/17 22:30: PT 10.9, INR 1.01, APTT 26.8 02/10/17 22:30: WBC 16.5 H D, RBC 3.28 L, Hgb 11.0 L, Hct 33.5 L, MCV 102.1, MCH 33.5, MCHC 32.8, RDW 18.6 H, Plt Count 201, MPV 10.5, Gran % 84.3 H, Lymph % (Auto) 13.7 L, [place] % (Auto) 1.5, Eos % (Auto) 0.4 L, Baso % (Auto) 0.1, Gran # 13.89 H, Lymph # 2.3, [place] # 0.2, Eos # 0.1, Baso # 0.01 - RAD Interpretation Radiology Orders: 02/10/17 22:29 HEAD W/O (CODE STROKE) [CT] Stat 02/10/17 22:35 CHEST PORTABLE [RAD] Stat - Medication Orders Current Medication Orders: Discontinued Medications Acetaminophen (Tylenol 325mg Tab) 975 mg PO STAT STA Stop: 02/10/17 23:16 Last Admin: 02/10/17 23:28 Dose: 975 mg Sodium Chloride (Sodium Chloride 0.9%) 2,400 mls @ 1,000 mls/hr IV .Q2H24M STA Stop: 02/11/17 01:38 Last Admin: 02/10/17 23:28 Dose: 1,000 mls/hr Vancomycin HCl (Vancomycin 1gm) 1 gm in 250 mls @ 133.333 mls/hr IVPB STAT STA PRN Reason: Protocol Stop: 02/11/17 01:07 Last Admin: 02/11/17 00:25 Dose: 133.333 mls/hr Piperacillin Sod/Tazobactam Sod (Zosyn 4.5 Gm In Ns 100ml) 4.5 gm in 100 mls @ 200 mls/hr IVPB STAT STA PRN Reason: Protocol Stop: 02/10/17 23:44 Last Admin: 02/10/17 23:28 Dose: 200 mls/hr Sodium Chloride (Sodium Chloride 0.9%) 1,000 mls @ 1,000 mls/hr IV .Q1H STA Stop: 02/11/17 03:08 Last Admin: 02/11/17 02:17 Dose: 1,000 mls/hr Ketorolac Tromethamine (Toradol) 15 mg IVP STAT STA Stop: 02/11/17 00:37 Last Admin: 02/11/17 00:49 Dose: 15 mg NIHSS Scale (Many) Time Performed: 03:24 - How Severe is the Stoke Baseline Level of Consciousness: 0=Alert LOC to Questions: 0=Both comments correct LOC to commands: 0=Obeys both correctly Best Gaze: 0=Normal Visual: 0=No visual loss Facial: 0=Normal Motor Arm - Left: 0=No drift Motor Arm - Right: 0=No drift Motor Leg - Left: 0=No drift Motor Leg - Right: 0=No drift Limb Ataxia: 0=Absent Sensory: 0=Normal Best Language: 0=No aphasia Dysarthia: 0=Normal articulation Extinction & Inattention (Neglect): 0=Normal, no object Score: 0 Risk Level: No Stroke Risk rTPA Inclusion/Exclusion - Refusal of Treatment Patient Refused Treatment: No - Inclusion Criteria for Altepase Patient is 18 years or Older: Yes The Clinical Diagnosis of Ischemic Stroke That is Causing a Potentially Disabling Neurological Deficit: No Time of Onset is Well Established to be Less Than 270 Minute Before Treatment Would Begin: Yes Risk/Benefit Discussed With Patient/Family Member Present: Yes - Warning to TPA With Conditions Additional Condition (For 3-4.5 Hour Window): Age Greater Than 80 Disposition/Present on Arrival - Present on Arrival Any Indicators Present on Arrival: No History of DVT/PE: No History of Uncontrolled Diabetes: No Urinary Catheter: No History of Decub. Ulcer: No History Surgical Site Infection Following: None - Disposition Have Diagnosis and Disposition been Completed?: Yes Diagnosis: Urinary tract infection Disposition: HOSPITALIZED Disposition Time: 02:34 Patient Plan: Admission Patient Problems: Current Active Problems Problem Status Onset Urinary tract infection Acute Condition: FAIR
[2017-02-11 01:43] LABS: URINE BILIRUBIN NEGATIVE (NEGATIVE); URINE BLOOD SMALL (NEGATIVE); URINE GLUCOSE (UA) NEGATIVE (NEGATIVE); URINE LEUKOCYTE ESTERASE LARGE Leu/uL (NEGATIVE); URINE NITRATE NEGATIVE (NEGATIVE); URINE PROTEIN 100 mg/dL (<30 mg/dL); URINE UROBILINOGEN 0.2 E.U./dL (<1 E.U./dL)
[2017-02-11 01:52] LABS: URINE APPEARANCE CLOUDY (CLEAR); URINE COLOR YELLOW (YELLOW)
[2017-02-11 01:55] LABS: URINE WBC TNTC /hpf (0-6)
[2017-02-11 01:56] LABS: URINE BACTERIA MANY (NEG); URINE EPITHELIAL CELLS 0 - 2 /hpf (0-5)
[2017-02-11 02:04] LABS: VENOUS BLOOD GAS BASE EXCESS -4.7 mmol/L (0.0-2.0); VENOUS BLOOD GAS PO2 62 mm/Hg (30-55); VENOUS BLOOD PH 7.32 (7.32-7.43)
[2017-02-11] MEDS ORDERED: Sodium Chloride 0.9% 1,000 ML IV STA ×2 (02:09→04:21)
--- NOTE | 2017-02-11 04:22 | CP.PCM.PN ---
Subjective - Date & Time of Evaluation Date of Evaluation: 02/11/17 Time of Evaluation: 04:22 - Subjective Subjective: Patient was seen at bedside as her blood pressure was 80/38,T:97.5*F,HR:88/min. She had received 2 L saline boluses when she was in the ER. States that her told her that she vomited x 2 when she was at home. Denies chest pain, sob, palpitation, sweating, any heart conditions. This 86 year old white woman was admitted with leukocytosis, anemia, dehydration, metabolic acidosis, elevated TG/UTI. Has PMH of CAD, DM, coronary stent placement, HTN,HLD, UTI's, arthritis, cataract surgery. Objective - Vital Signs/Intake and Output Vital Signs (last 24 hours): Temp Pulse Resp BP Pulse Ox 98.2 F 93 H 16 102/44 L 96 02/11/17 03:29 02/11/17 03:29 02/11/17 03:29 02/11/17 03:29 02/11/17 03:29 - Labs Labs: PT 10.9 Seconds (9.9-11.8) 02/10/17 22:30 INR 1.01 (0.93-1.08) 02/10/17 22:30 APTT 26.8 Seconds (23.7-30.8) 02/10/17 22:30 Laboratory Last Values WBC 16.5 10^3/ul (4.5-11.0) H D 02/10/17 22:30 RBC 3.28 10^6/uL (3.5-6.1) L 02/10/17 22:30 Hgb 11.0 gm/dL (12.0-16.0) L 02/10/17 22:30 Hct 33.5 % (36.0-48.0) L 02/10/17 22:30 MCV 102.1 fL (80.0-105.0) 02/10/17 22:30 MCH 33.5 pg (25.0-35.0) 02/10/17 22:30 MCHC 32.8 g/dl (31.0-37.0) 02/10/17 22:30 RDW 18.6 % (11.5-14.5) H 02/10/17 22:30 Plt Count 201 10^3/uL (120.0-450.0) 02/10/17 22:30 MPV 10.5 fl (7.0-11.0) 02/10/17 22:30 Gran % 84.3 % (50.0-68.0) H 02/10/17 22:30 Lymph % (Auto) 13.7 % (22.0-35.0) L 02/10/17 22:30 [place] % (Auto) 1.5 % (1.0-6.0) 02/10/17 22:30 Eos % (Auto) 0.4 % (1.5-5.0) L 02/10/17 22:30 Baso % (Auto) 0.1 % (0.0-3.0) 02/10/17 22:30 Gran # 13.89 (1.4-6.5) H 02/10/17 22:30 Lymph # 2.3 (1.2-3.4) 02/10/17 22:30 [place] # 0.2 (0.1-0.6) 02/10/17 22:30 Eos # 0.1 (0.0-0.7) 02/10/17 22:30 Baso # 0.01 K/mm3 (0.0-2.0) 02/10/17 22:30 PT 10.9 Seconds (9.9-11.8) 02/10/17 22:30 INR 1.01 (0.93-1.08) 02/10/17 22:30 APTT 26.8 Seconds (23.7-30.8) 02/10/17 22:30 pO2 62 mm/Hg (30-55) H 02/11/17 01:50 VBG pH 7.32 (7.32-7.43) 02/11/17 01:50 VBG pCO2 41.0 (40-60) 02/11/17 01:50 VBG HCO3 21.1 mmol/l (21-28) 02/11/17 01:50 VBG Total CO2 22.4 mmol.L (22-28) 02/11/17 01:50 VBG O2 Sat (Calc) 93.7 % (40-65) H 02/11/17 01:50 VBG Base Excess -4.7 mmol/L (0.0-2.0) L 02/11/17 01:50 VBG Potassium 4.0 mmol/L (3.6-5.2) 02/11/17 01:50 Sodium 138.0 mmol/L (132-148) 02/11/17 01:50 Chloride 108.0 mmol/L (98-107) H 02/11/17 01:50 Glucose 176 mg/dl (65-105) H 02/11/17 01:50 Lactate 1.7 mmol/L (0.7-2.1) 02/11/17 01:50 FiO2 21.0 % 02/11/17 01:50 Sodium 136 mmol/L (132-148) 02/10/17 22:30 Potassium 4.3 mmol/L (3.6-5.0) 02/10/17 22:30 Chloride 103 mmol/L (98-107) 02/10/17 22:30 Carbon Dioxide 18 mmol/L (21-33) L 02/10/17 22:30 Anion Gap 19 (10-20) 02/10/17 22:30 BUN 29 mg/dL (7-21) H 02/10/17 22:30 Creatinine 1.0 mg/dL (0.5-1.4) 02/10/17 22:30 Est GFR ( Amer) > 60 02/10/17 22:30 Est GFR (Non-Af Amer) 53 02/10/17 22:30 Random Glucose 138 mg/dL (70-110) H 02/10/17 22:30 Calcium 9.4 mg/dL (8.4-10.5) 02/10/17 22:30 Total Bilirubin 0.8 mg/dL (0.2-1.3) 02/10/17 22:30 AST 33 U/L (15-39) 02/10/17 22:30 ALT 32 U/L (7-56) 02/10/17 22:30 Alkaline Phosphatase 79 U/L (38-133) 02/10/17 22:30 Troponin I < 0.01 ng/mL 02/10/17 22:30 Total Protein 7.8 g/dL (5.8-8.3) 02/10/17 22:30 Albumin 4.4 g/dL (3.0-4.8) 02/10/17 22:30 Globulin 3.5 gm/dL 02/10/17 22:30 Albumin/Globulin Ratio 1.3 (1.1-1.8) 02/10/17 22:30 Triglycerides 169 mg/dL (35-160) H 02/10/17 22:30 Cholesterol 159 mg/dL (130-200) 02/10/17 22:30 LDL Cholesterol Direct 83 mg/dL (0-129) 02/10/17 22:30 HDL Cholesterol 39 mg/dL (29-60) 02/10/17 22:30 Venous Blood Potassium 4.0 mmol/L (3.6-5.2) 02/11/17 01:50 Urine Color Yellow (YELLOW) 02/11/17 01:20 Urine Appearance Cloudy (CLEAR) 02/11/17 01:20 Urine pH 6.0 (4.7-8.0) 02/11/17 01:20 Ur Specific [place] 1.020 (1.005-1.035) 02/11/17 01:20 Urine Protein 100 mg/dL (<30 mg/dL) H 02/11/17 01:20 Urine Glucose (UA) Negative mg/dL (NEGATIVE) 02/11/17 01:20 Urine Ketones Negative mg/dL (NEGATIVE) 02/11/17 01:20 Urine Blood Small (NEGATIVE) H 02/11/17 01:20 Urine Nitrate Negative (NEGATIVE) 02/11/17 01:20 Urine Bilirubin Negative (NEGATIVE) 02/11/17 01:20 Urine Urobilinogen 0.2 E.U./dL (<1 E.U./dL) 02/11/17 01:20 Ur Leukocyte Esterase Large [place]/uL (NEGATIVE) H 02/11/17 01:20 Urine RBC 2 - 5 /hpf (0-2) 02/11/17 01:20 Urine WBC Tntc /hpf (0-6) 02/11/17 01:20 Ur Epithelial Cells 0 - 2 /hpf (0-5) 02/11/17 01:20 Urine Bacteria Many (NEG) 02/11/17 01:20 Blood Type O POSITIVE 02/10/17 22:30 Antibody Screen Negative 02/10/17 22:30 BBK History Checked Patient has bt 02/10/17 22:30 - Constitutional Appears: Well, No Acute Distress - Head Exam Head Exam: ATRAUMATIC, NORMAL INSPECTION, NORMOCEPHALIC - Eye Exam Eye Exam: Normal appearance - ENT Exam ENT Exam: Mucous Membranes Dry - Neck Exam Neck Exam: Normal Inspection - Respiratory Exam Respiratory Exam: NORMAL BREATHING PATTERN. absent: Accessory Muscle Use, Prolonged Expiratory Phase, Rales, Rhonchi, Wheezes, Respiratory Distress, Stridor - Cardiovascular Exam Cardiovascular Exam: REGULAR RHYTHM, +S1 (Normal.), +S2 (Normal.). absent: JVD - GI/Abdominal Exam GI & Abdominal Exam: absent: Distended - Rectal Exam Rectal Exam: Deferred - Extremities Exam Extremities Exam: Normal Inspection - Back Exam Back Exam: NORMAL INSPECTION - Neurological Exam Neurological Exam: Alert, Oriented x3 - Psychiatric Exam Psychiatric exam: Normal Affect, Normal Mood - Skin Skin Exam: Dry, Normal Color Assessment and Plan - Assessment and Plan (Free Text) Assessment: Hypotension. Dehydration. UTI. R/O cardiac event. DM. HTN. HLD. CAD. Hx coronary stent placement. Plan: Normal saline 1 L over 1 hour. EKG stat and 6 hours later. Troponin stat and 6 hours later. Continue present management as per PMD.
[2017-02-11] MEDS: Sodium Chloride 0.9% 1,000 ML IV SCH ×2 (05:45→19:42)
[2017-02-11] MEDS ORDERED: Piperacillin/Tazobact 2.25gm 2.25 GM/100 ML BAG IVPB SCH (06:47)
--- NOTE | 2017-02-11 09:22 | CARD ---
APPROVED REPORT EKG Measurement Heart [id number] <Conclusion> Sinus tachycardia with frequent premature ventricular complexes Anterior infarct, age undetermined ST & T wave abnormality, consider lateral ischemia Abnormal ECG
--- NOTE | 2017-02-11 09:22 | CARD ---
APPROVED REPORT EKG Measurement Heart [id number] <Conclusion> Sinus rhythm with frequent premature ventricular complexes Low voltage QRS Borderline ECG
--- NOTE | 2017-02-11 10:02 | RAD ---
HISTORY: CVA COMPARISON: Comparison chest 01/21/2017 FINDINGS: LUNGS: Poor inspiration with low lung volumes, mild crowded bronchovascular markings and mild bibasilar atelectasis. . PLEURA: No significant pleural effusion identified, no pneumothorax apparent. CARDIOVASCULAR: Upper limits of normal. Aorta is slightly ectatic and uncoiled. OSSEOUS STRUCTURES: No significant abn mild degenerative changes both shoulder girdles. VISUALIZED UPPER ABDOMEN: Grossly unremarkable OTHER FINDINGS: None. IMPRESSION: Poor inspiration with low lung volumes, mild crowded bronchovascular markings and mild bibasilar atelectasis. . .
--- NOTE | 2017-02-11 10:25 | CT ---
PROCEDURE: CT HEAD WITHOUT CONTRAST. HISTORY: STROKE COMPARISON: Comparison made with prior MRI of the brain dated 01/23/2017 TECHNIQUE: Axial computed tomography images were obtained through the head/brain without intravenous contrast. Radiation dose: Total exam DLP = 756.76 mGy-cm. This CT exam was performed using one or more of the following dose reduction techniques: Automated exposure control, adjustment of the mA and/or kV according to patient size, and/or use of iterative reconstruction technique. FINDINGS: HEMORRHAGE: No acute parenchymal, subarachnoid nor extra-axial hemorrhage. BRAIN: Chronic periventricular white matter ischemic changes are again seen extending peripherally into the deep and subcortical white matter both cerebral hemispheres. More discrete chronic appearing infarct in the left basal ganglia and left superior frontal deep and subcortical white matter again noted as well associate with localized ex vacuo dilatation of the left frontal horn and anterior body left lateral ventricle. Scattered bilateral cerebellar and brainstem ischemic changes are less well seen on this study compared to high-resolution MRI. Moderate central volume loss also present not withstanding the aforementioned localized ex vacuo dilatation left frontal horn and anterior body left lateral ventricle. Vascular calcifications both carotid siphons and vertebral arteries. VENTRICLES: No obstructive hydrocephalus. . CALVARIUM: There are no acute calvarial fractures. PARANASAL SINUSES: Frontal sinuses remain hypoplastic/ underpneumatized. Remaining visualized paranasal sinuses are otherwise well developed and currently well-aerated MASTOID AIR CELLS: Unremarkable as visualized. No inflammatory changes. OTHER FINDINGS: Changes of right-sided cataract surgery IMPRESSION: No acute intracranial hemorrhage. Chronic white matter and left basal ganglia ischemic changes with ex vacuo dilatation left frontal horn and anterior body left lateral ventricle. 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 . Moderate central volume loss
[2017-02-11] MEDS: Pantoprazole 40 mg EC Tab PO SCH (10:26)
[2017-02-11] MEDS: Calcium-Vit D 250 mg-125 Units Tab UD PO SCH (10:26)
[2017-02-11] MEDS: Insulin Detemir 100 units/ml Vial (Levemir) SC SCH ×2 (10:56→21:36)
[2017-02-11] MEDS: GlipiZIDE 5 mg SR Tab PO SCH ×2 (10:57→18:49)
--- NOTE | 2017-02-11 11:57 | CP.PCM.CON ---
History of Present Illness - History of Present Illness History of Present Illness: 86 year old female with PMH of CAD S/P PCI, DM, HTN, dyslipidemia, history of arthritis, history of cataract surgery, obesity with BMI 35 was brought in by the family because of lethargy as well as shaking chills and fever since last night. There was no note of convulsions, no vomiting, no but apparently the patient was nauseated, no diarrhea, no loss of consciousness. In the ED, she was noted to have low BP which responded to fluids. She is now more awake and alert, but still had fever this morning. In the ED, urinalysis showed pyuria. Infectious Diseases consult is requested to further evaluate and manage. The patient is feeling somewhat better, no headache or dizziness, no sore throat, no cough or rhinorrhea, no chest pain, no abdominal pain. Review of Systems - Review of Systems All systems: reviewed and no additional remarkable complaints except (as per HPI ) Past Patient History - Infectious Disease Hx of Infectious Diseases: None - Past Social History Smoking Status: Never Smoked - CARDIAC Hx Cardiac Disorders: Yes Hx Hypercholesterolemia: Yes - PULMONARY Hx Respiratory Disorders: No - NEUROLOGICAL HX Cerebrovascular Accident: Yes Hx Dementia: Yes - HEENT Hx Cataracts: Yes - RENAL Hx Chronic Kidney Disease: No - ENDOCRINE/METABOLIC Hx Diabetes Mellitus Type 1: Yes - HEMATOLOGICAL/ONCOLOGICAL Hx Blood Transfusions: No Hx Blood Transfusion Reaction: No - INTEGUMENTARY Hx Dermatological Problems: No - MUSCULOSKELETAL/RHEUMATOLOGICAL Hx Falls: Yes Hx Osteoporosis: Yes - GASTROINTESTINAL Hx Gastrointestinal Disorders: Yes (CONSTIPATION,GI BLEED) - GENITOURINARY/GYNECOLOGICAL Hx Genitourinary Disorders: Yes (UTI) Hx Reproductive Disorders: No - PSYCHIATRIC Hx Anxiety: Yes Hx Depression: Yes Hx Substance Use: No - SURGICAL HISTORY Hx Cardiac Catheterization: Yes Hx Coronary Stent: Yes (x2) Hx Orthopedic Surgery: Yes - ANESTHESIA Hx Anesthesia: Yes Hx Anesthesia Reactions: No Hx Malignant Hyperthermia: No Meds Allergies/Adverse Reactions: Allergies Allergy/AdvReac Type Severity Reaction Status Date / Time No Known Allergies Allergy Verified 02/10/17 22:24 - Medications Medications: Current Medications Sodium Chloride (Sodium Chloride 0.9%) 1,000 mls @ 80 mls/hr IV .[id number] LINDSEY Last Admin: 02/11/17 05:45 Dose: 80 mls/hr Piperacillin Sod/Tazobactam Sod (Zosyn 4.5 Gm In Ns 100ml) 4.5 gm in 100 mls @ 200 mls/hr IVPB Q6 LINDSEY PRN Reason: Protocol Stop: 02/11/17 12:29 Physical Exam - Constitutional Appears: Non-toxic, No Acute Distress - Head Exam Head Exam: NORMAL INSPECTION - ENT Exam ENT Exam: Mucous Membranes Moist - Neck Exam Neck exam: Negative for: Meningismus - Respiratory Exam Respiratory Exam: Decreased Breath Sounds - Cardiovascular Exam Cardiovascular Exam: +S1, +S2 - GI/Abdominal Exam GI & Abdominal Exam: Soft. absent: Tenderness Results - Vital Signs Recent Vital Signs: Last Vital Signs Temp 97.5 F L 02/11/17 04:37 Pulse 89 02/11/17 04:37 Resp 20 02/11/17 04:37 BP 80/38 L 02/11/17 04:37 Pulse Ox 96 02/11/17 03:29 - Labs Result Diagrams: 02/10/17 22:30 02/10/17 22:30 Labs: Laboratory Results - last 24 hr 02/11/17 05:50 Troponin I 0.06 D Assessment & Plan - Assessment and Plan (Free Text) Plan: Assessment Consider sepsis due to urinary tract infection CAD S/P PCI DM HTN dyslipidemia history of arthritis history of cataract surgery obesity with BMI 35 Plan Patient has been given a dose of IV Vancomycin and Zosyn in the ED - will start Cefepime pending blood and urine cx will order CT scan of the abdomen and pelvis will monitor clinical response and trend fever curve
[2017-02-11] MEDS: Cefepime IV 2 gm in NS 2 GM/100 ML BAG IVPB SCH ×2 (12:25→21:35)
--- NOTE | 2017-02-11 12:26 | CP.PCM.CON ---
<Shane Cooney - Last Filed: 02/11/17 12:27> History of Present Illness - History of Present Illness History of Present Illness: PGY-[address] Montes De [facility] Neurology Service: Reason for consult: AMS This is an 86 year old female with PMHx CAD S/P PCI, DM, HTN, dyslipidemia, arthritis, cognitive impairment who presented to the hospital with slurred speech. Patient was brought in by family due to increased lethargy with fevers, chills, and vomiting. Patient was septic and given fluids in the ED. Urinalysis reveals evidence of UTI which is the likely source of infection. This morning the patient reports that she feels better. Episodes of slurred speech are transient. Patient is complaining of fevers and chills. Denies weakness, headache, dizziness, CP, SOB, abdominal pain, dysuria. PMHx: CAD s/p stents, DM, HLD, arthritis, cognitive impairment PSHx: Cataract surgery Allergies: NKDA Social: Denies tobacco, alcohol, drugs. Review of Systems - Constitutional Constitutional: Chills, Fever. absent: Headache, Weakness - EENT Eyes: absent: Change in Vision Ears: absent: Decreased Hearing - Cardiovascular Cardiovascular: absent: Chest Pain - Respiratory Respiratory: absent: Dyspnea - Gastrointestinal Gastrointestinal: absent: Abdominal Pain, Nausea, Vomiting - Genitourinary Genitourinary: absent: Dysuria - Musculoskeletal Musculoskeletal: absent: Muscle Weakness - Neurological Neurological: absent: Numbness, Headaches, Tingling, Weakness Past Patient History - Infectious Disease Hx of Infectious Diseases: None - Past Social History Smoking Status: Never Smoked - CARDIAC Hx Cardiac Disorders: Yes Hx Hypercholesterolemia: Yes - PULMONARY Hx Respiratory Disorders: No - NEUROLOGICAL HX Cerebrovascular Accident: Yes Hx Dementia: Yes - HEENT Hx Cataracts: Yes - RENAL Hx Chronic Kidney Disease: No - ENDOCRINE/METABOLIC Hx Diabetes Mellitus Type 1: Yes - HEMATOLOGICAL/ONCOLOGICAL Hx Blood Transfusions: No Hx Blood Transfusion Reaction: No - INTEGUMENTARY Hx Dermatological Problems: No - MUSCULOSKELETAL/RHEUMATOLOGICAL Hx Falls: Yes Hx Osteoporosis: Yes - GASTROINTESTINAL Hx Gastrointestinal Disorders: Yes (CONSTIPATION,GI BLEED) - GENITOURINARY/GYNECOLOGICAL Hx Genitourinary Disorders: Yes (UTI) Hx Reproductive Disorders: No - PSYCHIATRIC Hx Anxiety: Yes Hx Depression: Yes Hx Substance Use: No - SURGICAL HISTORY Hx Cardiac Catheterization: Yes Hx Coronary Stent: Yes (x2) Hx Orthopedic Surgery: Yes - ANESTHESIA Hx Anesthesia: Yes Hx Anesthesia Reactions: No Hx Malignant Hyperthermia: No Meds Allergies/Adverse Reactions: Allergies Allergy/AdvReac Type Severity Reaction Status Date / Time No Known Allergies Allergy Verified 02/10/17 22:24 - Medications Medications: Current Medications Acetaminophen (Tylenol 325mg Tab) 650 mg PO Q6H PRN PRN Reason: Fever >100.4 F Last Admin: 02/11/17 11:12 Dose: 650 mg Aspirin (Ecotrin) 81 mg PO DAILY [facility] Last Admin: 02/11/17 10:26 Dose: 81 mg Atorvastatin Calcium (Lipitor) 10 mg PO DAILY [facility] Last Admin: 02/11/17 10:50 Dose: 10 mg Calcium/Vitamin D (Oscal-D 250 Mg-125 Units Tab) 2 tab PO DAILY [facility] Last Admin: 02/11/17 10:26 Dose: 2 tab Ferrous Sulfate (Feosol) 324 mg PO DAILY [facility] Last Admin: 02/11/17 10:26 Dose: 324 mg Glipizide (Glucotrol Xl) 5 mg PO BID [facility] Last Admin: 02/11/17 10:57 Dose: Not Given Sodium Chloride (Sodium Chloride 0.9%) 1,000 mls @ 80 mls/hr IV .[id number] [facility] Last Admin: 02/11/17 05:45 Dose: 80 mls/hr Cefepime HCl (Maxipime 2gm) 2 gm in 100 mls @ 100 mls/hr IVPB Q12 [facility] PRN Reason: Protocol Stop: 02/16/17 12:01 Insulin Detemir (Levemir) 7 unit SC DAILY [facility] Last Admin: 02/11/17 10:56 Dose: Not Given Insulin Detemir (Levemir) 8 unit SC [facility] Ondansetron HCl (Zofran Inj) 4 mg IVP Q6H PRN PRN Reason: Nausea/Vomiting Pantoprazole Sodium (Protonix Ec Tab) 40 mg PO DAILY [facility] Last Admin: 02/11/17 10:26 Dose: 40 mg Physical Exam - Constitutional Appears: Non-toxic, No Acute Distress - Head Exam Head Exam: ATRAUMATIC, NORMAL INSPECTION, NORMOCEPHALIC - Eye Exam Eye Exam: EOMI, PERRL - ENT Exam ENT Exam: Mucous Membranes Moist - Respiratory Exam Additional comments: Coarse breath sounds bilaterally. - Cardiovascular Exam Cardiovascular Exam: REGULAR RHYTHM - GI/Abdominal Exam GI & Abdominal Exam: Normal Bowel Sounds, Soft - Neurological Exam Neurological exam: Alert, CN II-XII Intact, Oriented x3, Reflexes Normal Additional comments: Manual muscle testing 5/5 bilateral upper and lower extremities. No pronator drift. Down-going plantar responses. Poor attention at times. Able to distinguish family members. Results - Vital Signs Recent Vital Signs: Last Vital Signs Temp 97.5 F L 02/11/17 06:00 Pulse 89 02/11/17 06:00 Resp 20 02/11/17 06:00 BP 92/45 L 02/11/17 06:00 Pulse Ox 94 L 02/11/17 06:00 - Labs Result Diagrams: 02/10/17 22:30 02/10/17 22:30 Labs: Laboratory Results - last 24 hr 02/11/17 02/11/17 02/11/17 05:50 07:52 11:25 POC Glucose (mg/dL) 161 H Troponin I 0.06 D 0.17 H* D Assessment & Plan - Assessment and Plan (Free Text) Assessment: This is an 86 year old female with PMHx CAD S/P PCI, DM, HTN, dyslipidemia, arthritis, cognitive impairment who presented to the hospital with slurred speech. It is likely that an episode of cerebral hypoperfusion along with underlying sepsis superimposed on baseline cognitive impairment is what caused the change in mental status in terms of the transient slurred speech. Sepsis likely from UTI as evidenced by urinalysis. Leukocytosis 16.5. 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 CT Head 02/10/17 BRAIN: Chronic periventricular white matter ischemic changes are again seen extending peripherally into the deep and subcortical white matter both cerebral hemispheres. More discrete chronic appearing infarct in the left basal ganglia and left superior frontal deep and subcortical white matter again noted as well associate with localized ex vacuo dilatation of the left frontal horn and anterior body left lateral ventricle. Scattered bilateral cerebellar and brainstem ischemic changes are less well seen on this study compared to high- resolution MRI. Moderate central volume loss also present not withstanding the aforementioned localized ex vacuo dilatation left frontal horn and anterior body left lateral ventricle. Vascular calcifications both carotid siphons and vertebral arteries. IMPRESSION: No acute intracranial hemorrhage. Chronic white matter and left basal ganglia ischemic changes with ex vacuo dilatation left frontal horn and anterior body left lateral ventricle. 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 . Moderate central volume loss MRI Brain 01/23/17 HEMORRHAGE: None DWI: No evidence of an acute or early subacute infarction. BRAIN PARENCHYMA: No mass,mass effect or edema. There is an old lacunar infarcts in the left basal ganglia and pena radiata. There is some ipsilateral dilatation of the left lateral ventricle. Chronic microvascular changes are seen. IMPRESSION: No acute intracranial findings. Plan: 1) Maintain adequate hydration. 2) Monitor and correct electrolytes. 3) Avoid hypotensive episodes. 4) Continue antibiotics as per ID recommendation. 5) Continue ASA 81 mg and Lipitor 10 mg daily for stroke prevention. 6) Patient's family was advised on cognitive exercises for the patient to be done at home. Patient is neurologically stable. Discussed with patient and family at bedside. Thank you for this consult. Case discussed with Dr. Falguni Cooney, PGY-1 - Date & Time Date: 02/11/17 Time: 11:45 <Danielito Montes De Oca - Last Filed: 02/11/17 14:40> Meds - Medications Medications: Current Medications Acetaminophen (Tylenol 325mg Tab) 650 mg PO Q6H PRN PRN Reason: Fever >100.4 F Last Admin: 02/11/17 11:12 Dose: 650 mg Aspirin (Ecotrin) 81 mg PO DAILY [facility] Last Admin: 02/11/17 10:26 Dose: 81 mg Atorvastatin Calcium (Lipitor) 10 mg PO DAILY [facility] Last Admin: 02/11/17 10:50 Dose: 10 mg Calcium/Vitamin D (Oscal-D 250 Mg-125 Units Tab) 2 tab PO DAILY [facility] Last Admin: 02/11/17 10:26 Dose: 2 tab Ferrous Sulfate (Feosol) 324 mg PO DAILY [facility] Last Admin: 02/11/17 10:26 Dose: 324 mg Glipizide (Glucotrol Xl) 5 mg PO BID [facility] Last Admin: 02/11/17 10:57 Dose: Not Given Sodium Chloride (Sodium Chloride 0.9%) 1,000 mls @ 80 mls/hr IV .[id number] [facility] Last Admin: 02/11/17 05:45 Dose: 80 mls/hr Cefepime HCl (Maxipime 2gm) 2 gm in 100 mls @ 100 mls/hr IVPB Q12 [facility] PRN Reason: Protocol Stop: 02/16/17 12:01 Last Admin: 02/11/17 12:25 Dose: 100 mls/hr Insulin Detemir (Levemir) 7 unit SC DAILY [facility] Last Admin: 02/11/17 10:56 Dose: Not Given Insulin Detemir (Levemir) 8 unit SC [facility] Ondansetron HCl (Zofran Inj) 4 mg IVP Q6H PRN PRN Reason: Nausea/Vomiting Pantoprazole Sodium (Protonix Ec Tab) 40 mg PO DAILY [facility] Last Admin: 02/11/17 10:26 Dose: 40 mg Results - Vital Signs Recent Vital Signs: Last Vital Signs Temp 98.3 F 02/11/17 12:00 Pulse 109 H 02/11/17 12:00 Resp 18 02/11/17 12:00 BP 124/55 L 02/11/17 12:00 Pulse Ox 94 L 02/11/17 06:00 - Labs Result Diagrams: 02/10/17 22:30 02/10/17 22:30 Labs: Laboratory Results - last 24 hr 02/11/17 02/11/17 02/11/17 05:50 07:52 11:25 POC Glucose (mg/dL) 161 H Troponin I 0.06 D 0.17 H* D Attending/Attestation - Attestation I have personally seen and examined this patient.: Yes I have fully participated in the care of the patient.: Yes I have reviewed all pertinent clinical information: Yes
[2017-02-11] MEDS ORDERED: Iohexol 350 MG/100 ML VIAL ONE (12:30)
--- NOTE | 2017-02-11 13:41 | CARD ---
APPROVED REPORT EKG Measurement Heart [id number] <Conclusion> Sinus tachycardia Low voltage QRS Cannot rule out Anterior infarct, age undetermined Abnormal ECG
--- NOTE | 2017-02-11 16:06 | CT ---
PROCEDURE: CT scan abdomen and pelvis dated 02/11/2017. HISTORY: rule out intra-abdominal infection COMPARISON: Comparison made with CT scan abdomen and pelvis dated 05/08/2013. TECHNIQUE: Contiguous axial images of the abdomen and pelvis pelvis performed following intravenous injection of approximately 90 cc Omnipaque 350 contrast material. Additional 2 dimensional sagittal and coronal reformats provided. Coronal and Sagittal reformats generated. Radiation dose: Total exam DLP = 903.53 mGy-cm. This CT exam was performed using one or more of the following dose reduction techniques: Automated exposure control, adjustment of the mA and/or kV according to patient size, and/or use of iterative reconstruction technique. FINDINGS: LOWER THORAX: The liver exhibits mild bibasilar atelectasis right greater than left. Small hiatal hernia with slight wall thickening of the distal esophagus could be due to protrusion of gastric mucosa. Possibility of esophagitis or other intrinsic/ invasive wall lesion not excluded. Heart size is mildly enlarged. Mitral valve is heavily calcified. No evidence of significant pericardial effusion. LIVER: Liver mildly enlarged 20 cm CC dimension. Very mild fatty hepatic infiltration. No obvious hepatic mass collection or calcification. Portal and splenic veins are opacified. GALLBLADDER AND BILE DUCTS: Gallbladder is physiologically distended. No evidence of intraluminal gallbladder calculi. PANCREAS: The pancreas is slightly atrophic. No obvious pancreatic mass collection or calcification. SPLEEN: Spleen exhibits normal size and attenuation pattern. There is a vague small approximately 7 mm elliptical shaped focus low attenuation posterior inferior margin of the splenic parenchyma too small characterize. ADRENALS: No adrenal lesions. KIDNEYS AND URETERS: Re- demonstrated is a large partially exophytic cyst upper pole left kidney which measures approximately 6.95 x 6.1 cm. Smaller exophytic cyst anterior aspect mid - lower pole left kidney . Infiltration changes are seen in the surrounding left perinephric and pararenal spaces. . These findings are of uncertain etiology though could be postinflammatory of. There also appears to be some mild enhancement of the proximally urothelium ; rule out ascending UTI. . There appears to be some mild scarring changes and cortical volume loss lower pole left kidney. No evidence of obstructing nephrolithiasis. BLADDER: Urinary bladder is physiologically distended. No evidence of intraluminal urinary bladder calculi however there is a small bubble of air within the anterior superior margin of the urinary bladder nonspecific. If there has not been recent instrumentation, the possibility of infection with gas-forming organism not excluded. Clinical correlation recommended. . REPRODUCTIVE: Uterus and adnexal structures grossly unremarkable. APPENDIX: Normal-appearing appendix best seen on coronal image number [id number]. No periappendiceal inflammatory changes. BOWEL: Evaluation of the bowel is limited due to the lack of oral contrast material. The stomach is incompletely distended which may in part account for thick-walled appearance. Possibility of gastritis or other intrinsic/invasive wall lesion not excluded. Visualized loops of small bowel exhibit normal contour and caliber. No evidence of acute mechanical small bowel obstruction. Stool and air seen throughout the colon. The mid and distal descending colon is collapsed which presumably accounts for slight thick-walled appearance ; peristalsis may contribute. No obvious inflammatory changes seen in the adjacent mesenteric. Moderate amount of stool is seen within distal sigmoid and rectum suggesting mild fecal retention. PERITONEUM: No evidence of free intraperitoneal air. No free or loculated fluid collections. LYMPH NODES: Unremarkable. No enlarged lymph nodes. VASCULATURE: Unremarkable. No aortic aneurysm. BONES: Multilevel degenerative spondylosis of the lower thoracic and lumbar spine. OTHER FINDINGS: None. IMPRESSION: Infiltration changes are seen in the surrounding left perinephric and pararenal spaces. . These findings are of uncertain etiology though could be postinflammatory of. There also appears to be some mild enhancement of the proximally urothelium ; rule out ascending UTI. In addition . , there is a small bubble of air is present within the urinary bladder which could be secondary to recent instrumentation however if there has been no recent instrumentation the possibility of a infection with gas-forming organism must be considered. Bilateral renal cysts. Hepatomegaly. Mild fatty hepatic infiltration. Note these findings were discussed with 2 [facility] approximately 4pm . with written down and read back verification.
--- NOTE | 2017-02-11 23:32 | CP.PCM.HP ---
History of Present Illness - History of Present Illness History of Present Illness: This is an 86 year old female with PMHx CAD S/P PCI, DM, HTN, dyslipidemia, arthritis, cognitive impairment who presented to the hospital with slurred speech. Patient was brought in by family due to increased lethargy with fevers, chills, and vomiting. Patient was septic and given fluids in the ED. Urinalysis reveals evidence of UTI which is the likely source of infection. This morning the patient reports that she feels better. Episodes of slurred speech are transient. Patient is complaining of fevers and chills. Denies weakness, headache, dizziness, CP, SOB, abdominal pain, dysuria. septic code called id consult called PMHx: CAD s/p stents, DM, HLD, arthritis, cognitive impairment PSHx: Cataract surgery Present on Admission - Present on Admission Any Indicators Present on Admission: No Past Patient History - Infectious Disease Hx of Infectious Diseases: None - Past Social History Smoking Status: Never Smoked - CARDIAC Hx Cardiac Disorders: Yes Hx Hypercholesterolemia: Yes - PULMONARY Hx Respiratory Disorders: No - NEUROLOGICAL HX Cerebrovascular Accident: Yes Hx Dementia: Yes - HEENT Hx Cataracts: Yes - RENAL Hx Chronic Kidney Disease: No - ENDOCRINE/METABOLIC Hx Diabetes Mellitus Type 1: Yes - HEMATOLOGICAL/ONCOLOGICAL Hx Blood Transfusions: No Hx Blood Transfusion Reaction: No - INTEGUMENTARY Hx Dermatological Problems: No - MUSCULOSKELETAL/RHEUMATOLOGICAL Hx Falls: Yes Hx Osteoporosis: Yes - GASTROINTESTINAL Hx Gastrointestinal Disorders: Yes (CONSTIPATION,GI BLEED) - GENITOURINARY/GYNECOLOGICAL Hx Genitourinary Disorders: Yes (UTI) Hx Reproductive Disorders: No - PSYCHIATRIC Hx Anxiety: Yes Hx Depression: Yes Hx Substance Use: No - SURGICAL HISTORY Hx Cardiac Catheterization: Yes Hx Coronary Stent: Yes (x2) Hx Orthopedic Surgery: Yes - ANESTHESIA Hx Anesthesia: Yes Hx Anesthesia Reactions: No Hx Malignant Hyperthermia: No Meds Allergies/Adverse Reactions: Allergies Allergy/AdvReac Type Severity Reaction Status Date / Time No Known Allergies Allergy Verified 02/10/17 22:24 Physical Exam - Constitutional Appears: Well - Head Exam Head Exam: ATRAUMATIC, NORMAL INSPECTION, NORMOCEPHALIC - Eye Exam Eye Exam: EOMI, Normal appearance, PERRL Pupil Exam: NORMAL ACCOMODATION, PERRL - ENT Exam ENT Exam: Mucous Membranes Moist, Normal Exam - Neck Exam Neck exam: Positive for: Normal Inspection - Respiratory Exam Respiratory Exam: Clear to Auscultation Bilateral, NORMAL BREATHING PATTERN - Cardiovascular Exam Cardiovascular Exam: REGULAR RHYTHM - GI/Abdominal Exam GI & Abdominal Exam: Normal Bowel Sounds, Soft. absent: Tenderness - Rectal Exam Rectal Exam: NORMAL INSPECTION - Exam Exam: Circumcision, NORMAL INSPECTION External exam: NORMAL EXTERNAL EXAM Speculum exam: NORMAL SPECULUM EXAM Bimanual exam: NORMAL BIMANUAL EXAM - Extremities Exam Extremities exam: Positive for: normal inspection - Back Exam Back exam: NORMAL INSPECTION - Neurological Exam Neurological exam: Alert, CN II-XII Intact, Normal Gait, Oriented x3, Reflexes Normal - Psychiatric Exam Psychiatric exam: Normal Affect, Normal Mood - Skin Skin Exam: Dry, Intact, Normal Color, Warm Results - Vital Signs Recent Vital Signs: Last Vital Signs Temp 98.3 F 02/11/17 18:00 Pulse 83 02/11/17 20:35 Resp 17 02/11/17 18:00 BP 98/50 L 02/11/17 20:35 Pulse Ox 94 L 02/11/17 06:00 - Labs Result Diagrams: 02/10/17 22:30 02/10/17 22:30 Labs: Laboratory Results - last 24 hr 02/11/17 02/11/17 02/11/17 05:50 07:52 11:25 POC Glucose (mg/dL) 161 H Troponin I 0.06 D 0.17 H* D 02/11/17 02/11/17 02/11/17 11:27 16:25 21:12 POC Glucose (mg/dL) 114 H 160 H 128 H Troponin I Assessment & Plan - Assessment and Plan (Free Text) Assessment: This is an 86 year old female with PMHx CAD S/P PCI, DM, HTN, dyslipidemia, arthritis, cognitive impairment who presented to the hospital with slurred speech. It is likely that an episode of cerebral hypoperfusion along with underlying sepsis superimposed on baseline cognitive impairment is what caused the change in mental status in terms of the transient slurred speech. Sepsis likely from UTI as evidenced by urinalysis. Leukocytosis 16.5. 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 CT Head 02/10/17 BRAIN: Chronic periventricular white matter ischemic changes are again seen extending peripherally into the deep and subcortical white matter both cerebral hemispheres. More discrete chronic appearing infarct in the left basal ganglia and left superior frontal deep and subcortical white matter again noted as well associate with localized ex vacuo dilatation of the left frontal horn and anterior body left lateral ventricle. Scattered bilateral cerebellar and brainstem ischemic changes are less well seen on this study compared to high- resolution MRI. Moderate central volume loss also present not withstanding the aforementioned localized ex vacuo dilatation left frontal horn and anterior body left lateral ventricle. Vascular calcifications both carotid siphons and vertebral arteries. IMPRESSION: No acute intracranial hemorrhage. Chronic white matter and left basal ganglia ischemic changes with ex vacuo dilatation left frontal horn and anterior body left lateral ventricle. 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 . Moderate central volume loss MRI Brain 01/23/17 HEMORRHAGE: None DWI: No evidence of an acute or early subacute infarction. BRAIN PARENCHYMA: No mass,mass effect or edema. There is an old lacunar infarcts in the left basal ganglia and pena radiata. There is some ipsilateral dilatation of the left lateral ventricle. Chronic microvascular changes are seen. IMPRESSION: No acute intracranial findings. Plan: 1) Maintain adequate hydration. 2) Monitor and correct electrolytes. 3) Avoid hypotensive episodes. 4) Continue antibiotics as per ID recommendation. 5) Continue ASA 81 mg and Lipitor 10 mg daily for stroke prevention. 6) Patient's family was advised on cognitive exercises for the patient to be done at home. Patient is neurologically stable. Discussed with patient and family at bedside. especially daughter .ID is on the case getting anb .
[2017-02-12 08:32] LABS: BLOOD UREA NITROGEN 19 mg/dL (7-21); CALCIUM 7.4 mg/dL (8.4-10.5); GFR AFRICAN-AMERICAN > 60; GFR NON-AFRICAN AMERICAN 60; MAGNESIUM 1.7 mg/dL (1.7-2.2)
[2017-02-12 08:55] LABS: TROPONIN I 1.07 ng/mL
[2017-02-12] MEDS: Calcium-Vit D 250 mg-125 Units Tab UD PO SCH (09:11)
[2017-02-12] MEDS: Pantoprazole 40 mg EC Tab PO SCH (09:12)
[2017-02-12] MEDS: GlipiZIDE 5 mg SR Tab PO SCH ×2 (09:12→17:02)
[2017-02-12] MEDS: Cefepime IV 2 gm in NS 2 GM/100 ML BAG IVPB SCH ×2 (09:20→22:00)
[2017-02-12] MEDS: Sodium Chloride 0.9% 1,000 ML IV SCH (09:20)
[2017-02-12] MEDS: Insulin Detemir 100 units/ml Vial (Levemir) SC SCH ×3 (10:56→22:01)
--- NOTE | 2017-02-12 13:04 | CP.PCM.PN ---
Subjective - Date & Time of Evaluation Date of Evaluation: 02/12/17 Time of Evaluation: 10:20 - Subjective Subjective: Comfortable, not in distress, afebrile overnight, feeling better, more awake and alert. Objective - Vital Signs/Intake and Output Vital Signs (last 24 hours): Temp Pulse Resp BP Pulse Ox 98.7 F 87 18 110/56 L 99 02/12/17 06:45 02/12/17 06:45 02/12/17 06:45 02/12/17 06:45 02/12/17 06:45 Intake and Output: 02/12/17 02/12/17 06:59 18:59 Intake Total 980 Output Total 300 Balance 680 - Medications Medications: Current Medications Acetaminophen (Tylenol 325mg Tab) 650 mg PO Q6H PRN PRN Reason: Fever >100.4 F Last Admin: 02/11/17 11:12 Dose: 650 mg Aspirin (Ecotrin) 81 mg PO DAILY [facility] Last Admin: 02/11/17 10:26 Dose: 81 mg Atorvastatin Calcium (Lipitor) 10 mg PO DAILY [facility] Last Admin: 02/11/17 10:50 Dose: 10 mg Calcium/Vitamin D (Oscal-D 250 Mg-125 Units Tab) 2 tab PO DAILY [facility] Last Admin: 02/11/17 10:26 Dose: 2 tab Clopidogrel Bisulfate (Plavix) 75 mg PO DAILY [facility] Ferrous Sulfate (Feosol) 324 mg PO DAILY [facility] Last Admin: 02/11/17 10:26 Dose: 324 mg Glipizide (Glucotrol Xl) 5 mg PO BID [facility] Last Admin: 02/11/17 18:49 Dose: Not Given Sodium Chloride (Sodium Chloride 0.9%) 1,000 mls @ 80 mls/hr IV .[id number] [facility] Last Admin: 02/11/17 19:42 Dose: 80 mls/hr Cefepime HCl (Maxipime 2gm) 2 gm in 100 mls @ 100 mls/hr IVPB Q12 [facility] PRN Reason: Protocol Stop: 02/16/17 12:01 Last Admin: 02/11/17 21:35 Dose: 100 mls/hr Insulin Detemir (Levemir) 7 unit SC DAILY [facility] Last Admin: 02/11/17 10:56 Dose: Not Given Insulin Detemir (Levemir) 8 unit SC HS [facility] Last Admin: 02/11/17 21:36 Dose: Not Given Metoprolol Tartrate (Lopressor) 25 mg PO Q12 [facility] Last Admin: 02/12/17 00:38 Dose: Not Given Ondansetron HCl (Zofran Inj) 4 mg IVP Q6H PRN PRN Reason: Nausea/Vomiting Pantoprazole Sodium (Protonix Ec Tab) 40 mg PO DAILY [facility] Last Admin: 02/11/17 10:26 Dose: 40 mg - Labs Labs: PT 10.9 Seconds (9.9-11.8) 02/10/17 22:30 INR 1.01 (0.93-1.08) 02/10/17 22:30 APTT 26.8 Seconds (23.7-30.8) 02/10/17 22:30 - Constitutional Appears: Non-toxic, No Acute Distress - Head Exam Head Exam: NORMAL INSPECTION - Neck Exam Neck Exam: absent: Meningismus - Respiratory Exam Respiratory Exam: Decreased Breath Sounds - Cardiovascular Exam Cardiovascular Exam: +S1, +S2 - GI/Abdominal Exam GI & Abdominal Exam: Soft. absent: Tenderness Assessment and Plan - Assessment and Plan (Free Text) Plan: Assessment sepsis due to left sided pyelonephritis with associated gram negative bacilli bacteremia, clinically improving CAD S/P PCI DM HTN dyslipidemia history of arthritis history of cataract surgery obesity with BMI 35 Plan continue Cefepime pending identification and sensitivities of the gram negative bacilli in the blood and urine cx reviewed CT scan of the abdomen and pelvis which showed left sided peripnephric stranding will monitor clinical response and trend fever curve
--- NOTE | 2017-02-12 16:45 | CP.PCM.PN ---
Subjective - Date & Time of Evaluation Date of Evaluation: 02/12/17 Time of Evaluation: 09:50 - Subjective Subjective: This is an 86 year old female with PMHx CAD S/P PCI, DM, HTN, dyslipidemia, arthritis, cognitive impairment who presented to the hospital with slurred speech. Patient was brought in by family due to increased lethargy with fevers, chills, and vomiting. Patient was septic and given fluids in the ED. Urinalysis reveals evidence of UTI which is the likely source of infection. This morning the patient reports that she feels better. Episodes of slurred speech are transient. Patient is complaining of fevers and chills. Denies weakness, headache, dizziness, CP, SOB, abdominal pain, dysuria., husaband was on the bed side Objective - Vital Signs/Intake and Output Vital Signs (last 24 hours): Temp Pulse Resp BP Pulse Ox 97.1 F L 77 18 135/73 99 02/12/17 12:59 02/12/17 14:00 02/12/17 12:59 02/12/17 12:59 02/12/17 06:45 Intake and Output: 02/12/17 02/12/17 06:59 18:59 Intake Total 980 718 Output Total 300 Balance 680 718 - Medications Medications: Current Medications Acetaminophen (Tylenol 325mg Tab) 650 mg PO Q6H PRN PRN Reason: Fever >100.4 F Last Admin: 02/11/17 11:12 Dose: 650 mg Aspirin (Ecotrin) 81 mg PO DAILY [facility] Last Admin: 02/12/17 09:12 Dose: 81 mg Atorvastatin Calcium (Lipitor) 10 mg PO DAILY [facility] Last Admin: 02/12/17 09:10 Dose: 10 mg Calcium/Vitamin D (Oscal-D 250 Mg-125 Units Tab) 2 tab PO DAILY [facility] Last Admin: 02/12/17 09:11 Dose: 2 tab Clopidogrel Bisulfate (Plavix) 75 mg PO DAILY [facility] Last Admin: 02/12/17 09:10 Dose: 75 mg Ferrous Sulfate (Feosol) 324 mg PO DAILY [facility] Last Admin: 02/12/17 09:11 Dose: 324 mg Glipizide (Glucotrol Xl) 5 mg PO BID [facility] Last Admin: 02/12/17 09:12 Dose: 5 mg Sodium Chloride (Sodium Chloride 0.9%) 1,000 mls @ 80 mls/hr IV .[id number] [facility] Last Admin: 02/12/17 09:20 Dose: 80 mls/hr Cefepime HCl (Maxipime 2gm) 2 gm in 100 mls @ 100 mls/hr IVPB Q12 [facility] PRN Reason: Protocol Stop: 02/16/17 12:01 Last Admin: 02/12/17 09:20 Dose: 100 mls/hr Insulin Detemir (Levemir) 7 unit SC DAILY [facility] Last Admin: 02/12/17 12:42 Dose: 7 unit Insulin Detemir (Levemir) 8 unit SC HS [facility] Last Admin: 02/11/17 21:36 Dose: Not Given Metoprolol Tartrate (Lopressor) 25 mg PO Q12 [facility] Last Admin: 02/12/17 09:11 Dose: 25 mg Ondansetron HCl (Zofran Inj) 4 mg IVP Q6H PRN PRN Reason: Nausea/Vomiting Pantoprazole Sodium (Protonix Ec Tab) 40 mg PO DAILY [facility] Last Admin: 02/12/17 09:12 Dose: 40 mg - Labs Labs: 02/12/17 07:46 PT 10.9 Seconds (9.9-11.8) 02/10/17 22:30 INR 1.01 (0.93-1.08) 02/10/17 22:30 APTT 26.8 Seconds (23.7-30.8) 02/10/17 22:30 - Constitutional Appears: Well - Head Exam Head Exam: ATRAUMATIC, NORMAL INSPECTION, NORMOCEPHALIC - Eye Exam Eye Exam: EOMI, Normal appearance, PERRL Pupil Exam: NORMAL ACCOMODATION, PERRL - ENT Exam ENT Exam: Mucous Membranes Moist, Normal Exam - Neck Exam Neck Exam: Full ROM, Normal Inspection. absent: Lymphadenopathy - Respiratory Exam Respiratory Exam: Clear to Ausculation Bilateral, NORMAL BREATHING PATTERN - Cardiovascular Exam Cardiovascular Exam: REGULAR RHYTHM, +S1, +S2. absent: Murmur - GI/Abdominal Exam GI & Abdominal Exam: Soft, Normal Bowel Sounds. absent: Tenderness - Rectal Exam Rectal Exam: NORMAL INSPECTION - Exam Exam: Circumcision, NORMAL INSPECTION External exam: NORMAL EXTERNAL EXAM Speculum exam: NORMAL SPECULUM EXAM Bimanual exam: NORMAL BIMANUAL EXAM - Extremities Exam Extremities Exam: Full ROM, Normal Capillary Refill, Normal Inspection. absent : Joint Swelling, Pedal Edema - Back Exam Back Exam: NORMAL INSPECTION - Neurological Exam Neurological Exam: Alert, Awake, CN II-XII Intact, Normal Gait, Oriented x3 - Psychiatric Exam Psychiatric exam: Normal Affect, Normal Mood - Skin Skin Exam: Dry, Intact, Normal Color, Warm Assessment and Plan - Assessment and Plan (Free Text) Assessment: Assessment sepsis due to left sided pyelonephritis with associated gram negative bacilli bacteremia, clinically improving CAD S/P PCI DM HTN dyslipidemia history of arthritis history of cataract surgery obesity with BMI 35 Plan continue Cefepime pending identification and sensitivities of the gram negative bacilli in the blood and urine cx reviewed CT scan of the abdomen and pelvis which showed left sided peripnephric stranding will monitor clinical response and trend fever curve gi dvt pro.
--- NOTE | 2017-02-12 23:21 | CON ---
DATE: 02/11/2017 The patient in room 263, bed #1. REASON FOR CONSULTATION: Coronary artery disease, troponin elevated, sepsis, urinary tract infection. HISTORY OF PRESENT ILLNESS: An 86-year-old female with known case of CAD, history of PTCA, diabetes, hypertension, dyslipidemia, arthritis, dementia, admitted with shaking chills, difficulty speaking. The patient denies any chest pain, shortness of breath or palpitations. The patient is lying flat in bed without any respiratory distress. At present, the patient found to have urinary tract infection. PAST MEDICAL HISTORY: Positive for coronary artery disease, history of stents, diabetes mellitus, arthritis, hyperlipidemia, dementia. The patient had a cataract surgery. ALLERGIES: NO KNOWN ALLERGIES. PERSONAL HISTORY: Denies smoking. Denies drinking. REVIEW OF SYSTEMS: All other systems reviewed. Positive mentioned in the history, otherwise negative. HOME MEDICATIONS: The patient was on ferrous sulfate 325 mg daily, glipizide 5 mg b.i.d., Vasotec 10 mg daily, Lipitor 10 mg daily, aspirin 81 mg daily, Protonix 40 mg daily, metoprolol succinate (Toprol XL) 50 mg daily. PHYSICAL EXAMINATION: VITAL SIGNS: Blood pressure 98/50, respiration 18, pulse 90, and temperature 98.3. HEENT: Head is normocephalic. Eyes; pupils normal. Conjunctiva are slightly pale. NECK: JVP low. Carotid equal. Thorax AP diameter normal. CARDIOVASCULAR: S1 and S2. LUNGS: No rales. ABDOMEN: Soft. No tenderness. No organomegaly. Bowel sounds normal. EXTREMITIES: No clubbing. No cyanosis. LABORATORY DATA: WBC 16.5, hemoglobin 11.0, hematocrit 33.5 and platelets 201. Random sugar 128. Initial troponin 0.06, second troponin 0.17, glucose 161. Sodium 136, potassium 4.3, BUN 29, creatinine 1.0. AST and ALT normal. Total protein and albumin normal. Triglyceride 169, cholesterol 159, LDL 83. IMAGING: Chest x-ray poor inspiration with lung volumes. EKG showed sinus rhythm with frequent PVC, low voltage. DIAGNOSES: Sepsis, urinary tract infection, slight troponin elevation, may be due to sepsis, but cannot rule out [id number] myocardial infarction, coronary artery disease, history of stents, hypertension, cerebrovascular accident, diabetes mellitus, arthritis, dementia. PLAN: Put the patient on aspirin 81 mg daily. Also we will put on Plavix 75 mg daily and metoprolol 25 mg b.i.d. The patient denies any chest pain at present. The patient is on Protonix 40 mg daily, cefepime 2 g IV q.12 hour, insulin has added, Glipizide 5 mg b.i.d., ferrous sulfate 324 mg daily. We will repeat troponin in the morning and we will follow closely with you. Prabhjot Rae MD
[2017-02-13] MEDS ORDERED: Levalbuterol 0.63 MG/3 ML Inhal Soln UD IH STA (00:04)
--- NOTE | 2017-02-13 00:30 | CP.PCM.PN ---
Subjective - Date & Time of Evaluation Date of Evaluation: 02/12/17 Time of Evaluation: 23:50 - Subjective Subjective: called by nuse pt is wheezing pt is admitted with sepsis hx of cad dm is on fluids 80cc /h. no cp .no sob. Objective - Vital Signs/Intake and Output Vital Signs (last 24 hours): Temp Pulse Resp BP Pulse Ox 98.6 F 85 15 146/76 99 02/12/17 17:34 02/12/17 18:00 02/12/17 17:34 02/13/17 00:06 02/12/17 06:45 Intake and Output: 02/12/17 02/13/17 18:59 06:59 Intake Total 718 Balance 718 - Medications Medications: Current Medications Acetaminophen (Tylenol 325mg Tab) 650 mg PO Q6H PRN PRN Reason: Fever >100.4 F Last Admin: 02/11/17 11:12 Dose: 650 mg Aspirin (Ecotrin) 81 mg PO DAILY [facility] Last Admin: 02/12/17 09:12 Dose: 81 mg Atorvastatin Calcium (Lipitor) 10 mg PO DAILY [facility] Last Admin: 02/12/17 09:10 Dose: 10 mg Calcium/Vitamin D (Oscal-D 250 Mg-125 Units Tab) 2 tab PO DAILY [facility] Last Admin: 02/12/17 09:11 Dose: 2 tab Clopidogrel Bisulfate (Plavix) 75 mg PO DAILY [facility] Last Admin: 02/12/17 09:10 Dose: 75 mg Ferrous Sulfate (Feosol) 324 mg PO DAILY [facility] Last Admin: 02/12/17 09:11 Dose: 324 mg Glipizide (Glucotrol Xl) 5 mg PO BID [facility] Last Admin: 02/12/17 17:02 Dose: 5 mg Sodium Chloride (Sodium Chloride 0.9%) 1,000 mls @ 80 mls/hr IV .[id number] [facility] Last Admin: 02/12/17 09:20 Dose: 80 mls/hr Cefepime HCl (Maxipime 2gm) 2 gm in 100 mls @ 100 mls/hr IVPB Q12 [facility] PRN Reason: Protocol Stop: 02/16/17 12:01 Last Admin: 02/12/17 22:00 Dose: 100 mls/hr Insulin Detemir (Levemir) 7 unit SC DAILY [facility] Last Admin: 02/12/17 12:42 Dose: 7 unit Insulin Detemir (Levemir) 8 unit SC HS [facility] Last Admin: 02/12/17 22:01 Dose: 8 unit Metoprolol Tartrate (Lopressor) 25 mg PO Q12 [facility] Last Admin: 02/12/17 09:11 Dose: 25 mg Ondansetron HCl (Zofran Inj) 4 mg IVP Q6H PRN PRN Reason: Nausea/Vomiting Pantoprazole Sodium (Protonix Ec Tab) 40 mg PO DAILY [facility] Last Admin: 02/12/17 09:12 Dose: 40 mg - Labs Labs: 02/12/17 07:46 PT 10.9 Seconds (9.9-11.8) 02/10/17 22:30 INR 1.01 (0.93-1.08) 02/10/17 22:30 APTT 26.8 Seconds (23.7-30.8) 02/10/17 22:30 - Constitutional Appears: No Acute Distress - Head Exam Head Exam: NORMOCEPHALIC - Eye Exam Eye Exam: PERRL Pupil Exam: PERRL - ENT Exam ENT Exam: Mucous Membranes Moist - Respiratory Exam Respiratory Exam: Decreased Breath Sounds, Wheezes - Cardiovascular Exam Cardiovascular Exam: RRR, +S1 - GI/Abdominal Exam GI & Abdominal Exam: Soft - Rectal Exam Rectal Exam: Deferred - Extremities Exam Extremities Exam: Pedal Edema - Neurological Exam Neurological Exam: Awake - Psychiatric Exam Psychiatric exam: Normal Affect - Skin Skin Exam: Dry, Warm Assessment and Plan - Assessment and Plan (Free Text) Assessment: chf . cad . sepsis. Plan: will hold fluids and give lasix 40 mg xi and xopenexx nebs x1.
--- NOTE | 2017-02-13 04:14 | PN ---
DATE OF PROGRESS NOTE: 02/12/2017 SUBJECTIVE: The patient is an 86-year-old known case of CAD, diabetes, hypertension, dyslipidemia, arthritis, cognitive impairment, had difficulty in speaking at home, so the patient was brought by the family due to increased lethargy with fever as well. The patient was found to have urinary tract infection. The patient's speech improved by the time she came to the emergency room. The patient denied any chest pain, shortness of breath, or palpitation. The patient has a history of CAD with stent insertions. PHYSICAL EXAMINATION: VITAL SIGNS: Blood pressure 135/73, respirations 18, pulse 77, and temperature 97.1. HEENT: Head is normocephalic. Eyes: Pupils normal. Conjunctivae slightly pale. NECK: JVP low. Carotids equal. Thorax: AP diameter normal. LUNGS: No rales. CARDIOVASCULAR: S1 and S2. ABDOMEN: Soft, nontender. No organomegaly. Bowel sounds normal. EXTREMITIES: No clubbing, no cyanosis. LABORATORY DATA: WBC 16.5, hemoglobin 11.0, hematocrit 33.5, and platelet 201. Random sugar 189. Troponin 1.07. Sodium 139, potassium 4.1, BUN 19, and creatinine 0.9. DIAGNOSES: Period of dysphagia, urinary tract infection, coronary artery disease, history of stents, diabetes mellitus, arthritis, cognitive impairment, slight elevation in troponin, rule out non-ST elevation myocardial infarction. PLAN: Aspirin 81 mg daily, ferrous sulfate 324 mg p.o. daily, glipizide 5 mg b.i.d., Lipitor 10 mg daily, metoprolol 25 mg b.i.d., cefepime IV 2 g q. 12 hour, Plavix 75 mg daily, Protonix 40 mg daily. We will repeat troponin today and tomorrow. In the meantime, the patient does not have any chest pain, and we will follow up. Prabhjot Rae MD
--- NOTE | 2017-02-13 08:04 | PCM.URO ---
Urology Progress Note - Objective Lab Results Last 24 Hours: Laboratory Results - last 24 hr 02/12/17 02/12/17 02/12/17 07:38 07:46 07:46 Sodium 139 Potassium 4.1 Chloride 112 H Carbon Dioxide 19 L Anion Gap 12 BUN 19 Creatinine 0.9 Est GFR ( Amer) > 60 Est GFR (Non-Af Amer) 60 POC Glucose (mg/dL) 116 H Random Glucose 95 Calcium 7.4 L Phosphorus 2.3 L Magnesium 1.7 Troponin I 1.07 H* D TSH 3rd Generation 2.24 02/12/17 02/12/17 02/12/17 11:22 16:29 17:00 Sodium Potassium Chloride Carbon Dioxide Anion Gap BUN Creatinine Est GFR ( Amer) Est GFR (Non-Af Amer) POC Glucose (mg/dL) 228 H 189 H Random Glucose Calcium Phosphorus Magnesium Troponin I 0.72 H* D TSH 3rd Generation 02/12/17 02/13/17 02/13/17 21:09 06:00 07:13 Sodium Potassium Chloride Carbon Dioxide Anion Gap BUN Creatinine Est GFR ( Amer) Est GFR (Non-Af Amer) POC Glucose (mg/dL) 208 H 158 H Random Glucose Calcium Phosphorus Magnesium Troponin I 0.57 H* D [facility] 3rd Generation Intake & Output: Intake & Output 02/12/17 02/13/17 02/13/17 18:59 06:59 18:59 Intake Total 718 1818 Output Total 400 Balance 718 1418 Weight 184 lb 8 oz Intake: IV 1140 Left Antecubital 1140 Oral 718 678 Output: Urine 400 Urine, Voided 400 Other: # Voids Urine, Voided 2 # Bowel Movements 1 Vital Signs: Vital Signs - 24 hr 02/12/17 02/12/17 02/12/17 09:11 10:00 12:59 Temperature 97.1 F L Pulse Rate 88 89 77 Respiratory 18 Rate Blood Pressure 104/48 L 135/73 O2 Sat by Pulse Oximetry 02/12/17 02/12/17 02/12/17 14:00 17:34 18:00 Temperature 98.6 F Pulse Rate 77 79 85 Respiratory 15 Rate Blood Pressure 149/76 O2 Sat by Pulse Oximetry 02/12/17 02/13/17 02/13/17 22:00 00:06 02:00 Temperature Pulse Rate 59 L 91 H Respiratory Rate Blood Pressure 146/76 O2 Sat by Pulse Oximetry 02/13/17 02/13/17 06:00 06:09 Temperature 98.8 F Pulse Rate 96 H 86 Respiratory 20 Rate Blood Pressure 143/69 O2 Sat by Pulse 98 Oximetry
[2017-02-13] MEDS: Cefepime IV 2 gm in NS 2 GM/100 ML BAG IVPB SCH ×2 (11:07→22:08)
[2017-02-13] MEDS: Insulin Detemir 100 units/ml Vial (Levemir) SC SCH ×2 (11:08→22:09)
[2017-02-13] MEDS: Pantoprazole 40 mg EC Tab PO SCH (11:08)
[2017-02-13] MEDS ORDERED: Enoxaparin 80 mg Syringe SC ONE (11:20)
[2017-02-13 12:49] LABS: BASO # 0.01 K/mm3 (0.0-2.0); BASO % 0.2 % (0.0-3.0); EOS # 0.1 (0.0-0.7); EOS % 1.6 % (1.5-5.0); GRAN # 4.31 (1.4-6.5); GRAN % 75.3 % (50.0-68.0); LYMPH # 0.8 (1.2-3.4); LYMPH % 14.7 % (22.0-35.0); MEAN CELL VOLUME 101.5 fL (80.0-105.0); MEAN CORPUSCULAR HEMOGLOBIN 34.1 pg (25.0-35.0); MEAN CORPUSCULAR HGB CONC 33.6 g/dl (31.0-37.0); MEAN PLATELET VOLUME 10.7 fl (7.0-11.0); MONO # 0.5 (0.1-0.6); MONO % 8.2 % (1.0-6.0); PLATELET COUNT 138 10^3/uL (120.0-450.0); RBC 2.64 10^6/uL (3.5-6.1); RED CELL DISTRIBUTION WIDTH 17.8 % (11.5-14.5); WHITE BLOOD COUNT 5.7 10^3/ul (4.5-11.0)
[2017-02-13 12:58] LABS: BLOOD UREA NITROGEN 13 mg/dL (7-21); CALCIUM 8.2 mg/dL (8.4-10.5); GFR AFRICAN-AMERICAN > 60; GFR NON-AFRICAN AMERICAN > 60
[2017-02-13] MEDS: Calcium-Vit D 250 mg-125 Units Tab UD PO SCH (13:06)
[2017-02-13] MEDS: GlipiZIDE 5 mg SR Tab PO SCH ×2 (13:06→18:54)
--- NOTE | 2017-02-13 13:29 | CP.PCM.PN ---
Subjective - Date & Time of Evaluation Date of Evaluation: 02/13/17 Time of Evaluation: 10:05 - Subjective Subjective: Comfortable, feeling much better, no nausea, no fevers or chills, no vomiting, no diarrhea. Objective - Vital Signs/Intake and Output Vital Signs (last 24 hours): Temp Pulse Resp BP Pulse Ox 98.8 F 86 20 143/69 98 02/13/17 06:09 02/13/17 06:09 02/13/17 06:09 02/13/17 06:09 02/13/17 06:09 Intake and Output: 02/12/17 02/13/17 18:59 06:59 Intake Total 718 1818 Output Total 400 Balance 718 1418 - Medications Medications: Current Medications Acetaminophen (Tylenol 325mg Tab) 650 mg PO Q6H PRN PRN Reason: Fever >100.4 F Last Admin: 02/11/17 11:12 Dose: 650 mg Aspirin (Ecotrin) 81 mg PO DAILY [facility] Last Admin: 02/12/17 09:12 Dose: 81 mg Atorvastatin Calcium (Lipitor) 10 mg PO DAILY [facility] Last Admin: 02/12/17 09:10 Dose: 10 mg Calcium/Vitamin D (Oscal-D 250 Mg-125 Units Tab) 2 tab PO DAILY [facility] Last Admin: 02/12/17 09:11 Dose: 2 tab Clopidogrel Bisulfate (Plavix) 75 mg PO DAILY [facility] Last Admin: 02/12/17 09:10 Dose: 75 mg Ferrous Sulfate (Feosol) 324 mg PO DAILY [facility] Last Admin: 02/12/17 09:11 Dose: 324 mg Glipizide (Glucotrol Xl) 5 mg PO BID [facility] Last Admin: 02/12/17 17:02 Dose: 5 mg Sodium Chloride (Sodium Chloride 0.9%) 1,000 mls @ 80 mls/hr IV .[id number] [facility] Last Admin: 02/12/17 09:20 Dose: 80 mls/hr Cefepime HCl (Maxipime 2gm) 2 gm in 100 mls @ 100 mls/hr IVPB Q12 [facility] PRN Reason: Protocol Stop: 02/16/17 12:01 Last Admin: 02/12/17 22:00 Dose: 100 mls/hr Insulin Detemir (Levemir) 7 unit SC DAILY [facility] Last Admin: 02/12/17 12:42 Dose: 7 unit Insulin Detemir (Levemir) 8 unit SC HS [facility] Last Admin: 02/12/17 22:01 Dose: 8 unit Metoprolol Tartrate (Lopressor) 25 mg PO Q12 [facility] Last Admin: 02/12/17 22:00 Dose: Not Given Ondansetron HCl (Zofran Inj) 4 mg IVP Q6H PRN PRN Reason: Nausea/Vomiting Pantoprazole Sodium (Protonix Ec Tab) 40 mg PO DAILY [facility] Last Admin: 02/12/17 09:12 Dose: 40 mg - Labs Labs: 02/12/17 07:46 PT 10.9 Seconds (9.9-11.8) 02/10/17 22:30 INR 1.01 (0.93-1.08) 02/10/17 22:30 APTT 26.8 Seconds (23.7-30.8) 02/10/17 22:30 - Constitutional Appears: Non-toxic, No Acute Distress - Head Exam Head Exam: NORMAL INSPECTION - ENT Exam ENT Exam: Mucous Membranes Moist - Neck Exam Neck Exam: absent: Lymphadenopathy, Meningismus - Respiratory Exam Respiratory Exam: Decreased Breath Sounds. absent: Rales - Cardiovascular Exam Cardiovascular Exam: +S1, +S2 - GI/Abdominal Exam GI & Abdominal Exam: Soft. absent: Tenderness Assessment and Plan - Assessment and Plan (Free Text) Plan: Assessment sepsis due to left sided pyelonephritis with associated gram negative bacilli bacteremia, clinically improving CAD S/P PCI DM HTN dyslipidemia history of arthritis history of cataract surgery obesity with BMI 35 Plan continue Cefepime day 3 pending identification and sensitivities of the gram negative bacilli in the blood; urine cx is showing E. coli but we are still awaiting the final blood cx results reviewed CT scan of the abdomen and pelvis which showed left sided peripnephric stranding will monitor clinically, patient has been afebrile for more than 48 hours
--- NOTE | 2017-02-13 21:40 | CP.PCM.PN ---
Subjective - Date & Time of Evaluation Date of Evaluation: 02/13/17 Time of Evaluation: 11:00 - Subjective Subjective: Comfortable, feeling much better, no nausea, no fevers or chills, no vomiting, no diarrhea.h/ o wheezing . seen by dr Ventura Objective - Vital Signs/Intake and Output Vital Signs (last 24 hours): Temp Pulse Resp BP Pulse Ox 98.1 F 72 18 141/66 98 02/13/17 18:00 02/13/17 18:00 02/13/17 18:00 02/13/17 18:00 02/13/17 06:09 - Medications Medications: Current Medications Acetaminophen (Tylenol 325mg Tab) 650 mg PO Q6H PRN PRN Reason: Fever >100.4 F Last Admin: 02/11/17 11:12 Dose: 650 mg Aspirin (Ecotrin) 81 mg PO DAILY [facility] Last Admin: 02/13/17 11:08 Dose: 81 mg Atorvastatin Calcium (Lipitor) 10 mg PO DAILY [facility] Last Admin: 02/13/17 11:09 Dose: 10 mg Calcium/Vitamin D (Oscal-D 250 Mg-125 Units Tab) 2 tab PO DAILY [facility] Last Admin: 02/13/17 13:06 Dose: 2 tab Clopidogrel Bisulfate (Plavix) 75 mg PO DAILY [facility] Last Admin: 02/13/17 11:09 Dose: 75 mg Ferrous Sulfate (Feosol) 324 mg PO DAILY [facility] Last Admin: 02/13/17 11:09 Dose: 324 mg Glipizide (Glucotrol Xl) 5 mg PO BID [facility] Last Admin: 02/13/17 18:54 Dose: 5 mg Cefepime HCl (Maxipime 2gm) 2 gm in 100 mls @ 100 mls/hr IVPB Q12 [facility] PRN Reason: Protocol Stop: 02/16/17 12:01 Last Admin: 02/13/17 11:07 Dose: 100 mls/hr Insulin Detemir (Levemir) 7 unit SC DAILY [facility] Last Admin: 02/13/17 11:08 Dose: 7 unit Insulin Detemir (Levemir) 8 unit SC HS [facility] Last Admin: 02/12/17 22:01 Dose: 8 unit Metoprolol Tartrate (Lopressor) 25 mg PO Q12 [facility] Last Admin: 02/13/17 11:10 Dose: 25 mg Ondansetron HCl (Zofran Inj) 4 mg IVP Q6H PRN PRN Reason: Nausea/Vomiting Pantoprazole Sodium (Protonix Ec Tab) 40 mg PO DAILY [facility] Last Admin: 02/13/17 11:08 Dose: 40 mg - Labs Labs: 02/13/17 11:40 02/13/17 11:40 PT 10.9 Seconds (9.9-11.8) 02/10/17 22:30 INR 1.01 (0.93-1.08) 02/10/17 22:30 APTT 26.8 Seconds (23.7-30.8) 02/10/17 22:30 - Constitutional Appears: Well - ENT Exam ENT Exam: Mucous Membranes Moist, Normal Exam - Neck Exam Neck Exam: Full ROM, Normal Inspection. absent: Lymphadenopathy - Respiratory Exam Respiratory Exam: Prolonged Expiratory Phase. absent: NORMAL BREATHING PATTERN - Cardiovascular Exam Cardiovascular Exam: REGULAR RHYTHM, +S1, +S2. absent: Murmur - GI/Abdominal Exam GI & Abdominal Exam: Soft, Normal Bowel Sounds. absent: Tenderness - Extremities Exam Extremities Exam: Full ROM, Normal Capillary Refill, Normal Inspection. absent : Joint Swelling, Pedal Edema - Back Exam Back Exam: NORMAL INSPECTION - Neurological Exam Neurological Exam: Alert, Awake, CN II-XII Intact, Normal Gait, Oriented x3 - Psychiatric Exam Psychiatric exam: Normal Affect, Normal Mood - Skin Skin Exam: Dry, Intact, Normal Color, Warm Assessment and Plan (1) COPD (chronic obstructive pulmonary disease) Status: Acute (2) CHF (congestive heart failure) Status: Acute (3) Urinary tract infection Status: Acute (4) + est Status: Acute (5) Anemia Status: Acute (6) Anemia Status: Acute (7) Dehydration Status: Acute (8) Near syncope Status: Acute (9) Syncope Status: Acute - Assessment and Plan (Free Text) Assessment: Assessment sepsis due to left sided pyelonephritis with associated gram negative bacilli bacteremia, clinically improving CAD S/P PCI DM HTN dyslipidemia history of arthritis history of cataract surgery obesity with BMI 35 chf , copd Plan continue Cefepime day 3 pending identification and sensitivities of the gram negative bacilli in the blood; urine cx is showing E. coli but we are still awaiting the final blood cx results reviewed CT scan of the abdomen and pelvis which showed left sided peripnephric stranding will monitor clinically, patient has been afebrile for more than 48 hours, id is on the case , will f/u
--- NOTE | 2017-02-13 22:39 | PN ---
DATE: 02/13/2017 ADDENDUM Addendum to initial progress note dictated this morning. I spoke to the , but the patient does not remember that Dr. Hull did 2 stent in the past and used to go periodically to see Dr. Hull, so we will transfer the care to Dr. Hull tomorrow and continue aspirin, Plavix, and Lovenox. I will keep n.p.o. for tentative cath tomorrow by Dr. Hull. We will discuss with Dr. Hull. We will sign off for now for ourselves and put Dr. Hull in consult,but we will take care tonight. Prabhjot Bryant MD
--- NOTE | 2017-02-13 22:54 | PN ---
DATE: 02/13/2017 REASON FOR CONSULTATION: Followup non-ST segment myocardial infarction, admitted with urosepsis. BRIEF CLINICAL HISTORY: This is an 86-year-old female with past medical history of CAD, diabetes, hypertension, hyperlipidemia, admitted with urosepsis, has troponin positive. Since it is non-ST segment myocardial infarction, the patient denies any chest pain, denies any shortness of breath, denies any palpitation. PHYSICAL EXAMINATION: As follows: VITAL SIGNS: Temperature afebrile, heart rate 82, blood pressure 130/58. HEENT: PERRLA. Extraocular muscles intact. NECK: Supple. No carotid bruit, thyromegaly. CHEST: Clear to auscultation. HEART: S1 and S2, regular. ABDOMEN: Soft. EXTREMITIES: Clubbing and cyanosis negative. BLOOD WORKUP: As follows: WBC is 16.5 as of 02/10/2017, hemoglobin 11, hematocrit 33.5, platelet count 201 as of 02/10/2017. Blood workup as of 02/12/2017, sodium 139, potassium 4.0, chloride 101, carbon dioxide 19, anion gap of 4, BUN of 19, creatinine 0.9, troponin 1.07 as of 02/12, today's troponin trended to 0.57. Blood culture, gram-negative rods on 02/10 and urine culture is positive, gram-negative lance. IMPRESSION: Urosepsis, non-ST segment myocardial infarction, coronary artery disease, status post PTCA in the past, diabetes, hypertension, hyperlipidemia. The patient is awake and alert. Denies any chest pain, shortness of breath. RECOMMENDATION: Continue beta-sean, give a dose of Lovenox. Repeat blood culture. Last WBC on 02/10 was elevated, so we will repeat a stat WBC. *------* 7 and troponin also. The patient is asymptomatic. Consider cardiac catheterization tomorrow. We will give a dose of Lovenox. Continue beta sean. Continue Plavix. We will discuss with the family. Keep n.p.o. tomorrow until midnight for cardiac catheterization. Prabhjot Bryant MD [facility] # [id number]
[2017-02-14] MEDS: Albuterol-Ipratrop 3 mg / 0.5 (3 ml) UD IH SCH ×4 (01:15→21:36)
[2017-02-14 05:55] LABS: EOS # 0.2 (0.0-0.7); EOS % 3.6 % (1.5-5.0); GRAN # 2.89 (1.4-6.5); GRAN % 60.9 % (50.0-68.0); HEMOGLOBIN 8.6 gm/dL (12.0-16.0); LYMPH # 1.2 (1.2-3.4); LYMPH % 24.5 % (22.0-35.0); MEAN CELL VOLUME 101.1 fL (80.0-105.0); MEAN CORPUSCULAR HGB CONC 32.6 g/dl (31.0-37.0); MEAN PLATELET VOLUME 10.3 fl (7.0-11.0); MONO # 0.5 (0.1-0.6); PLATELET COUNT 142 10^3/uL (120.0-450.0); RBC 2.61 10^6/uL (3.5-6.1); RED CELL DISTRIBUTION WIDTH 17.6 % (11.5-14.5); WHITE BLOOD COUNT 4.7 10^3/ul (4.5-11.0)
[2017-02-14 06:12] LABS: ALB/GLOB RATIO 1.1 (1.1-1.8); ALBUMIN 3.3 g/dL (3.0-4.8); ALT/SGPT 81 U/L (7-56); AST/SGOT 72 U/L (15-39); BLOOD UREA NITROGEN 15 mg/dL (7-21); CALCIUM 8.9 mg/dL (8.4-10.5); GFR AFRICAN-AMERICAN > 60; GFR NON-AFRICAN AMERICAN > 60; MAGNESIUM 1.8 mg/dL (1.7-2.2)
[2017-02-14] MEDS: Insulin Detemir 100 units/ml Vial (Levemir) SC SCH ×2 (10:00→22:30)
[2017-02-14] MEDS: GlipiZIDE 5 mg SR Tab PO SCH ×2 (10:00→17:40)
[2017-02-14] MEDS ORDERED: Lidocaine 2% Inj (20ml) ONE (12:43)
[2017-02-14] MEDS ORDERED: Phenylephrine 10 mg/ml Inj ONE (12:43)
[2017-02-14] MEDS ORDERED: Midazolam 2 MG/2 ML VIAL ONE ×2 (12:43→13:44)
[2017-02-14] MEDS ORDERED: Iodixanol 320 MG/ML 100 ML BOTTLE IV ONE (12:44)
[2017-02-14] MEDS ORDERED: Nitroglycerin 50mg in D5W 0 MG/0 ML BOTTLE IV ONE (12:44)
[2017-02-14] MEDS ORDERED: Iohexol 350mgl/ml 50 ML ONE (12:44)
[2017-02-14] MEDS ORDERED: Iodixanol 320 MG/ML 200 ML BOTTLE IV ONE (12:44)
[2017-02-14] MEDS: Cefepime IV 2 gm in NS 2 GM/100 ML BAG IVPB SCH (12:59)
[2017-02-14] MEDS ORDERED: Sodium Chloride 0.9% 1,000 ML IV SCH (15:00)
[2017-02-14] MEDS: Pantoprazole 40 mg EC Tab PO SCH (15:59)
[2017-02-14] MEDS: Calcium-Vit D 250 mg-125 Units Tab UD PO SCH (15:59)
--- NOTE | 2017-02-14 16:27 | PN ---
DATE: 02/14/2017 SUBJECTIVE: The patient was seen earlier this morning in room #263, bed #1. No fevers and no chills. No nausea. PHYSICAL EXAMINATION: VITAL SIGNS: Temperature is down, the patient did have a T-max of 102 on 02/11/2017, but has been afebrile now past 48 to 72 hours; heart rate of 84; blood pressure is 150/50; respiratory rate of 20. HEENT: Unremarkable. NECK: Supple. LUNGS: Decreased breath sounds. HEART: Normal S1 and S2. ABDOMEN: Soft, nontender. LABORATORY DATA: Reveal the patient's white count today is down to 4.7, hemoglobin of 8.6. Coagulation is noted. Chemistries reveal a BUN of 15, creatinine of 0.8, and a urinalysis is noted, too numerous to count wbc's. Microbiology reveals E. coli in the blood and an E. coli in the urine. The E. coli in the blood is pansensitive including sensitive to Cipro and E. coli in the urine is sensitive to Cipro. Review of orders reveals the patient to be on cefepime and review of the patient's EKG showed a QTc of 458 and another QTc on the same day of 446 with the patient currently on cefepime. ASSESSMENT AND PLAN: An 86-year-old female admitted with sepsis with left-sided pyelonephritis with E. coli bacteremia, E. coli pyelonephritis and pansensitive, may switch to p.o. Cipro at 500 mg p.o. b.i.d. for a total antibiotic treatment of 10 to 14 days. The patient has been on cefepime now for the past 3 to 4 days. We will discontinue the cefepime and switch to p.o. Cipro 500 b.i.d. x10 days. The patient is having cardiac workup. Pablito Salter MD
--- NOTE | 2017-02-14 18:51 | CARD ---
APPROVED REPORT EKG Measurement Heart [id number] <Conclusion> Normal sinus rhythm Cannot rule out Anterior infarct, age undetermined Abnormal ECG
[2017-02-15] MEDS: Albuterol-Ipratrop 3 mg / 0.5 (3 ml) UD IH SCH ×3 (01:05→14:07)
--- NOTE | 2017-02-15 04:17 | CARDCATH ---
PROCEDURE DATE: 02/14/2017 HISTORY: The patient is an 86-year-old woman who presents with non-STEMI. Her troponins were noted to be elevated. The patient has documented previous coronary artery disease with PTCA and stent in 2013. After extensive discussion with the patient as well as her , the risks and benefits of cardiac cath and PTCA were discussed. All questions were answered. The patient is oriented x3 and able to understand the risks and benefits of the procedure. All her questions were answered. The patient is agreeable for cardiac catheterization and possible PTCA. PERFORMING PHYSICIAN: Kg Hull MD PROCEDURE PERFORMED: Left heart catheterization with coronary angiography and left ventriculogram followed by PTCA and stent of the RCA. The right femoral artery is cannulated with 6-Greek sheath. There were no complications. FINDINGS ON CATHETERIZATION: 1. Revealed a right dominant circulation. 2. The RCA revealed 90% stenosis in the proximal portion as well as 80% stenosis in the midportion of the RCA. 3. The left main artery was unremarkable. 4. The LAD and diagonal vessels revealed patent stent that were noted in the midportion of the artery. 5. Distal to the stent, there was an eccentric 60% stenosis noted. 6. The circumflex artery and obtuse marginal branches are free of significant disease. 7. Left ventriculogram was performed in the SHANKAR projection. In the DHIRAJ projection, wall motion is within normal limits. Estimated ejection fraction is 60%. The patient was started on intravenous Angiomax. Under fluoroscopic guide, the guiding catheter was placed in the ostium of the RCA. An 0.014 ATW wire was used to cross 2 lesions in the RCA. A 2.5 balloon was utilized to pre-dilate both lesions. A 2.5 x 15 mm bare-metal stent was placed and deployed at 12 atmospheres of pressure in the mid RCA lesion. A 2.75 x 12 mm bare-metal stent was placed and deployed in the proximal lesion at 14 atmospheres of pressure. Repeat coronary aortography after balloon removal revealed an excellent result with no residual stenosis and KYMBERLY-3 flow. Angio-Seal was used to close the femoral artery site. The patient tolerated the procedure well. SUMMARY: In summary, the procedure was successful with PTCA and stent of 2 lesions of the RCA with bare-metal stents. Cardiac catheterization reveals 2-vessel CAD with 2 new lesions in the RCA, as well as patent stent in the mid LAD and a a 60% stenosis distal to the LAD stent. Given these findings, the patient will continue on aspirin indefinitely and Plavix for at least 1 month and undergo a strict cardiac risk reduction program. Kg Hull MD
--- NOTE | 2017-02-15 04:47 | PN ---
DATE:02/14/17 SUBJECTIVE: The patient is 86-year-old female. The patient is seen and examined on the bedside. is standing on the bedside. Nurse of the patient is also standing on the bedside, doing vitals. The patient just came back after catheterization and cardiac stenting. Looks comfortable. Stenting was done on the right groin area. No nausea, vomiting, or diarrhea. No hematuria. No hematochezia. No swelling of the leg. No chest pain. No palpitation.. No headache or dizziness. PHYSICAL EXAMINATION VITAL SIGNS: Temperature 97.4, pulse 75, blood pressure 120/61, respiratory rate 18. HEENT: Head, normocephalic, atraumatic. Eyes; PERRLA, extraocular muscles intact. Conjunctivae clear. Nose patent. Mucous membrane moist. NECK: Supple. No carotid bruit. No thyromegaly. CHEST: Bilaterally symmetrical. HEART: S1 and S2 positive. LUNGS: Clear to auscultation. ABDOMEN: Soft. Bowel sounds positive. No organomegaly. EXTREMITIES: No edema. No cyanosis. NEUROLOGIC: The patient is awake and alert. Moving all 4 extremities. No focal deficit. LABORATORY DATA: White blood cell is 4.7, hemoglobin 8.6, hematocrit 26.4 and platelets 142. Sodium 138, potassium 4.5, BUN 15, creatinine 0.8, glucose 155 and 122. AST 72, ALT 81. MEDICATIONS: 1. Ciprofloxacin. 2. DuoNeb. 3. Ecotrin. 4. Feosol. 5. Glipizide. 6. Lasix. 7. Levemir. 8. Lipitor. 9. Lopressor. 10. Capsule of vitamin D. 11. Plavix. 12. Protonix. ASSESSMENT AND PLAN: The patient is an 86 [id number] with uncontrolled diabetes mellitus, hypocalcemia, abnormal liver function tests. 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 Anemia, proteinuria, hematuria, urinary tract infection. Seen infectious disease Dr. Salter. Sepsis with left-sided pyelonephritis with Escherichia coli bacteremia, Escherichia coli pyelonephritis and begum sensitive. Call Dr. Salter, we can switch to p.o. ciprofloxacin for 10 to 14 days. The patient already got cefepime for 4 days. ID changed the antibiotics to p.o. History of coronary artery disease, hypertension, hypercholesteremia, arthritis, future cataract surgery, obesity with body mass index of 35. Continue present treatment. Continue albuterol for chronic obstructive pulmonary disease, asthma. getting Aspirin, Glucotrol. The patient is getting Levemir. Gastrointestinal prophylaxis. With labs, we will follow up. Margaret Gomez MD [facility]
--- NOTE | 2017-02-15 06:35 | CON ---
DATE: 02/14/2017 REFERRING PHYSICIAN: REASON FOR CONSULTATION: Snoring, daytime sleepiness, rule out sleep apnea syndrome, coronary artery disease status post coronary stent. HISTORY OF PRESENT ILLNESS: This is an 86-year-old female with past medical history of coronary artery disease, diabetes, hypertension, hyperlipidemia, admitted with UTI, found to have positive troponin, status post cardiac catheter, coronary stent. According to , she does have snoring, daytime sleepy, and tired. No nausea. No vomiting. No diarrhea. No leg pain or leg swelling. PAST MEDICAL HISTORY: Significant for coronary artery disease, status post coronary stent, diabetes, hypertension, and hyperlipidemia. ALLERGIES: UNKNOWN. FAMILY HISTORY: No significant cardiopulmonary disease reported. SOCIAL HISTORY: Nonsmoker. Nondrinker. MEDICATIONS: She is on: 1. Cipro 500 mg twice a day. 2. DuoNeb q. 6 hours. 3. Ecotrin 81 mg daily. 4. Ferrous sulfate 324 mg daily. 5. Glucotrol XL 5 mg twice a day. 6. Lasix 40 mg twice a day. 7. Levemir 7 units subcu daily. 8. Levemir 8 units subcu h.s. 9. Lipitor 40 mg daily. 10. Metoprolol tartrate 25 mg twice a day. 11. Plavix 75 mg daily. 12. Protonix 40 mg daily. 13. Tylenol on a p.r.n. basis. REVIEW OF SYSTEMS: No headache. Admit to have snoring, daytime sleepy and tired. No chest pain. No nausea. No vomiting. No diarrhea. No hematuria. No leg pain or leg swelling. PHYSICAL EXAMINATION GENERAL: Lying in the bed in no acute distress. VITAL SIGNS: Temperature 98, heart rate 82, respiratory rate 18, blood pressure 120/46, and pulse oximetry 98% on 2 L nasal cannula. HEENT: Moist mucous membranes with carotid airways. Mallampati score is 4. NECK: Supple. No JVD. LUNGS: rhonchi. HEART: S1 and S2. ABDOMEN: Soft and nontender. No organomegaly. EXTREMITIES: There is no edema. NEUROLOGIC: Awake and alert. Follow simple commands. LABORATORY DATA: Shows hemoglobin 8.6, hematocrit 26.4, WBC 4.7, and platelet count is 142. ABG done on admission shows pH 7.32, PCO2 of 41, and PO2 of 62. Sodium 138, potassium 4.5, chloride 103, bicarbonate 25, BUN 15, creatinine 0.8, glucose 132, calcium 8.9, magnesium 1.8, AST 72, ALT 81, alkaline phosphatase 79, albumin is 3.3. Microbiology on admission, urine culture has E. coli and blood culture has E. coli. A repeat blood culture on 02/13/2017, there is no growth. CAT scan of the abdomen was done on 02/11/2017, which shows infiltration changes are seen in the surrounding left perinephritic and pararenal space. IMPRESSION AND PLAN: 1. Coronary artery disease, status post coronary stent. 2. Bacteremia, source is genitourinary system. 3. Diabetes. 4. Hypertension. 5. Hyperlipidemia. 6. Sleep apnea syndrome. Case discussed with at bedside, all the questions answered. Keep head elevated 45 degrees. Sleep apnea precaution. Avoid sedation. Continue antibiotics. Outpatient attended sleep study. Cardiology and ID followup. We will follow with you. Prabhjot Ha MD
[2017-02-15 07:13] LABS: BASO # 0.01 K/mm3 (0.0-2.0); BASO % 0.2 % (0.0-3.0); EOS # 0.2 (0.0-0.7); EOS % 4.3 % (1.5-5.0); GRAN # 3.33 (1.4-6.5); GRAN % 62.4 % (50.0-68.0); HEMOGLOBIN 9.4 gm/dL (12.0-16.0); LYMPH # 1.2 (1.2-3.4); MEAN CELL VOLUME 100.7 fL (80.0-105.0); MEAN CORPUSCULAR HEMOGLOBIN 32.8 pg (25.0-35.0); MEAN CORPUSCULAR HGB CONC 32.5 g/dl (31.0-37.0); MEAN PLATELET VOLUME 10.6 fl (7.0-11.0); MONO # 0.6 (0.1-0.6); MONO % 11.1 % (1.0-6.0); PLATELET COUNT 183 10^3/uL (120.0-450.0); RBC 2.87 10^6/uL (3.5-6.1); RED CELL DISTRIBUTION WIDTH 17.3 % (11.5-14.5); WHITE BLOOD COUNT 5.3 10^3/ul (4.5-11.0)
[2017-02-15 07:40] LABS: BLOOD UREA NITROGEN 17 mg/dL (7-21); CALCIUM 9.3 mg/dL (8.4-10.5); GFR AFRICAN-AMERICAN > 60; GFR NON-AFRICAN AMERICAN > 60
[2017-02-15 09:41] VITALS: O2SAT 99
[2017-02-15] MEDS: Insulin Detemir 100 units/ml Vial (Levemir) SC SCH (10:43)
[2017-02-15] MEDS: Calcium-Vit D 250 mg-125 Units Tab UD PO SCH (10:44)
[2017-02-15] MEDS: Pantoprazole 40 mg EC Tab PO SCH (10:44)
[2017-02-15] MEDS: GlipiZIDE 5 mg SR Tab PO SCH ×2 (10:44→16:53)
[2017-02-15 12:39] VITALS: BP 113/67; PULSE 81; RESP 16; TEMP 97.2
--- NOTE | 2017-02-15 15:46 | PN ---
DATE: 02/15/2017 SUBJECTIVE: The patient is chest pain free. PHYSICAL EXAMINATION VITAL SIGNS: Blood pressure 129/56, the heart rate is in the 80s. NECK: Negative JVD. LUNGS: Without rales. HEART: With S1, S2. EXTREMITIES: Without edema. LABORATORY DATA: Hemoglobin is 9.4. Chemistries: The glucose is 134. IMPRESSION: 1. Stable post percutaneous transluminal coronary angioplasty and stent of 2 lesions in the right coronary artery. 2. Coronary artery disease. 3. Diabetes mellitus. 4. Hypercholesterolemia. 5. Recent non-ST elevated myocardial infarction. RECOMMENDATIONS: Given these findings, the patient's cardiac status is stable. We will discontinue telemetry today. The patient will need to remain on aspirin and Plavix. Kg Hull MD
[2017-02-15] MEDS ORDERED: Insulin Reg-MEDIUM-Coverage SC SCH (16:30)
--- NOTE | 2017-02-15 20:47 | PN ---
PULMONARY PROGRESS NOTE DATE OF SERVICE: 02/15/2017 REFERRING PHYSICIAN: Dr. Gomez. SUBJECTIVE: She is lying in the bed, examined in echocardiography room. Night was unremarkable. No chest pain. No shortness of breath. No nausea, no vomiting, no diarrhea. No leg pain or leg swelling. PHYSICAL EXAMINATION: GENERAL: In no acute distress. VITAL SIGNS: Temperature is 98, heart rate is 81, respiratory rate is 18, blood pressure 113/67. HEENT: Moist mucous membranes. Crowded airway. Mallampati score is IV. NECK: Supple. No JVD. LUNGS: Fair airflow with a few rhonchi. HEART: S1 and S2. ABDOMEN: Soft, nontender. No organomegaly. EXTREMITIES: There is no edema. NEUROLOGIC: Awake, alert, follows simple command. MEDICATIONS: She is on Cipro 500 mg, trazodone q. 6 hours, Ecotrin 81 mg daily, ferrous sulfate 325 mg daily, glipizide 5 mg twice a day, Levemir 8 units subcutaneous at bedtime, Lipitor 40 mg daily, metoprolol tartrate 25 mg twice a day, *------*daily, Protonix 40 mg daily, Tylenol p.r.n. basis. LABORATORY DATA: Shows hemoglobin 9.4, hematocrit 28.9, WBC 5.3, platelet count is 183. Sodium 138, potassium 4.5, chloride 99, bicarbonate 30, BUN 17, creatinine 0.8, glucose 134, calcium is 9.3. Microbiology, blood culture, urine culture had E. coli on admission, but repeat blood culture so far, there is no growth. IMPRESSION AND PLAN: Coronary artery disease status post coronary stent, bacteremia, source is tract, diabetes, hypertension, hyperlipidemia, may have sleep apnea syndrome. From pulmonary point of view, doing well. Keep head at 45 degree, gastric prophylaxis, DVT prophylaxis, platelet inhibitor, outpatient attended sleep study. Thank you and we will follow with you. Prabhjot Ha MD
--- NOTE | 2017-02-16 02:40 | PN ---
DATE: 02/15/2017 SUBJECTIVE: The patient is seen in bed, in no acute distress, nontoxic. No fevers and no chills. The patient was seen early this morning in room 274, bed 1. PHYSICAL EXAMINATION: VITAL SIGNS: Temperature is 97, blood pressure is 113/67, respiratory rate of 18, and heart rate of 81. HEENT: Unremarkable. NECK: Supple. LUNGS: Decreased breath sounds. HEART: Normal S1 and S2. ABDOMEN: Soft, nontender. LABORATORY DATA: Reveals white count of 5.3, hemoglobin of 9, platelets of 183. Chemistries reveals a BUN of 17 and creatinine of 0.8. Urinalysis is noted and microbiology reveals that the patient has E. coli in the blood and E. coli in the urine. ASSESSMENT AND PLAN: An 86-year-old female who was seen early this morning in room 274, bed 1 with sepsis, with left-sided pyelonephritis, Escherichia coli bacteremia, Escherichia coli pyelonephritis and pansensitive and currently completed therapy on p.o. Cipro. Pablito Salter MD
--- NOTE | 2017-02-16 09:46 | CP.PCM.DIS ---
Provider - Provider Date of Admission: discharge gloria for 02/15/17 Attending physician: Margaret Gomez MD Primary care physician: Kyra Rossi MD Time Spent in preparation of Discharge (in minutes): 60 Diagnosis - Discharge Diagnosis (1) COPD (chronic obstructive pulmonary disease) Status: Acute (2) CHF (congestive heart failure) Status: Acute (3) Urinary tract infection Status: Acute (4) + est Status: Acute (5) Anemia Status: Acute (6) Anemia Status: Acute (7) Dehydration Status: Acute (8) Near syncope Status: Acute (9) Syncope Status: Acute (10) CAD (coronary artery disease) Status: Acute (11) Hx of heart artery stent Status: Acute (12) CHF (congestive heart failure) Status: Acute Hospital Course - Lab Results Lab Results: Micro Results 02/13/17 11:40 Blood-Venous Blood Culture - Preliminary NO GROWTH AFTER 48 HOURS 02/13/17 12:00 Blood-Venous Blood Culture - Preliminary NO GROWTH AFTER 48 HOURS Most Recent Lab Values WBC 5.3 10^3/ul (4.5-11.0) 02/15/17 06:30 RBC 2.87 10^6/uL (3.5-6.1) L 02/15/17 06:30 Hgb 9.4 gm/dL (12.0-16.0) L 02/15/17 06:30 Hct 28.9 % (36.0-48.0) L 02/15/17 06:30 MCV 100.7 fL (80.0-105.0) 02/15/17 06:30 MCH 32.8 pg (25.0-35.0) 02/15/17 06:30 MCHC 32.5 g/dl (31.0-37.0) 02/15/17 06:30 RDW 17.3 % (11.5-14.5) H 02/15/17 06:30 Plt Count 183 10^3/uL (120.0-450.0) 02/15/17 06:30 MPV 10.6 fl (7.0-11.0) 02/15/17 06:30 Gran % 62.4 % (50.0-68.0) 02/15/17 06:30 Lymph % (Auto) 22.0 % (22.0-35.0) 02/15/17 06:30 [place] % (Auto) 11.1 % (1.0-6.0) H 02/15/17 06:30 Eos % (Auto) 4.3 % (1.5-5.0) 02/15/17 06:30 Baso % (Auto) 0.2 % (0.0-3.0) 02/15/17 06:30 Gran # 3.33 (1.4-6.5) 02/15/17 06:30 Lymph # 1.2 (1.2-3.4) 02/15/17 06:30 [place] # 0.6 (0.1-0.6) 02/15/17 06:30 Eos # 0.2 (0.0-0.7) 02/15/17 06:30 Baso # 0.01 K/mm3 (0.0-2.0) 02/15/17 06:30 PT 10.9 Seconds (9.9-11.8) 02/10/17 22:30 INR 1.01 (0.93-1.08) 02/10/17 22:30 APTT 26.8 Seconds (23.7-30.8) 02/10/17 22:30 pO2 62 mm/Hg (30-55) H 02/11/17 01:50 VBG pH 7.32 (7.32-7.43) 02/11/17 01:50 VBG pCO2 41.0 (40-60) 02/11/17 01:50 VBG HCO3 21.1 mmol/l (21-28) 02/11/17 01:50 VBG Total CO2 22.4 mmol.L (22-28) 02/11/17 01:50 VBG O2 Sat (Calc) 93.7 % (40-65) H 02/11/17 01:50 VBG Base Excess -4.7 mmol/L (0.0-2.0) L 02/11/17 01:50 VBG Potassium 4.0 mmol/L (3.6-5.2) 02/11/17 01:50 Sodium 138.0 mmol/L (132-148) 02/11/17 01:50 Chloride 108.0 mmol/L (98-107) H 02/11/17 01:50 Glucose 176 mg/dl (65-105) H 02/11/17 01:50 Lactate 1.7 mmol/L (0.7-2.1) 02/11/17 01:50 FiO2 21.0 % 02/11/17 01:50 Sodium 138 mmol/L (132-148) 02/15/17 06:30 Potassium 4.5 mmol/L (3.6-5.0) 02/15/17 06:30 Chloride 99 mmol/L (95-110) 02/15/17 06:30 Carbon Dioxide 30 mmol/L (21-33) 02/15/17 06:30 Anion Gap 14 (10-20) 02/15/17 06:30 BUN 17 mg/dL (7-21) 02/15/17 06:30 Creatinine 0.8 mg/dL (0.5-1.4) 02/15/17 06:30 Est GFR ( Amer) > 60 02/15/17 06:30 Est GFR (Non-Af Amer) > 60 02/15/17 06:30 POC Glucose (mg/dL) 158 mg/dL (65-110) H 02/16/17 05:24 Random Glucose 134 mg/dL (70-110) H 02/15/17 06:30 Hemoglobin A1c 5.0 % (4.2-6.5) 02/10/17 22:30 Calcium 9.3 mg/dL (8.4-10.5) 02/15/17 06:30 Phosphorus 2.7 mg/dL (2.5-4.5) 02/14/17 05:30 Magnesium 1.8 mg/dL (1.7-2.2) 02/14/17 05:30 Total Bilirubin 0.4 mg/dL (0.2-1.3) 02/14/17 05:30 AST 72 U/L (15-39) H 02/14/17 05:30 ALT 81 U/L (7-56) H 02/14/17 05:30 Alkaline Phosphatase 79 U/L (38-133) 02/14/17 05:30 Troponin I 0.57 ng/mL H* D 02/13/17 06:00 Total Protein 6.4 g/dL (5.8-8.3) 02/14/17 05:30 Albumin 3.3 g/dL (3.0-4.8) 02/14/17 05:30 Globulin 3.1 gm/dL 02/14/17 05:30 Albumin/Globulin Ratio 1.1 (1.1-1.8) 02/14/17 05:30 Triglycerides 169 mg/dL (35-160) H 02/10/17 22:30 Cholesterol 159 mg/dL (130-200) 02/10/17 22:30 LDL Cholesterol Direct 83 mg/dL (0-129) 02/10/17 22:30 HDL Cholesterol 39 mg/dL (29-60) 02/10/17 22:30 TSH 3rd Generation 2.24 mIU/mL (0.46-4.68) 02/12/17 07:46 Venous Blood Potassium 4.0 mmol/L (3.6-5.2) 02/11/17 01:50 Urine Color Yellow (YELLOW) 02/11/17 01:20 Urine Appearance Cloudy (CLEAR) 02/11/17 01:20 Urine pH 6.0 (4.7-8.0) 02/11/17 01:20 Ur Specific [place] 1.020 (1.005-1.035) 02/11/17 01:20 Urine Protein 100 mg/dL (<30 mg/dL) H 02/11/17 01:20 Urine Glucose (UA) Negative mg/dL (NEGATIVE) 02/11/17 01:20 Urine Ketones Negative mg/dL (NEGATIVE) 02/11/17 01:20 Urine Blood Small (NEGATIVE) H 02/11/17 01:20 Urine Nitrate Negative (NEGATIVE) 02/11/17 01:20 Urine Bilirubin Negative (NEGATIVE) 02/11/17 01:20 Urine Urobilinogen 0.2 E.U./dL (<1 E.U./dL) 02/11/17 01:20 Ur Leukocyte Esterase Large Peyton/uL (NEGATIVE) H 02/11/17 01:20 Urine RBC 2 - 5 /hpf (0-2) 02/11/17 01:20 Urine WBC Tntc /hpf (0-6) 02/11/17 01:20 Ur Epithelial Cells 0 - 2 /hpf (0-5) 02/11/17 01:20 Urine Bacteria Many (NEG) 02/11/17 01:20 Blood Type O POSITIVE 02/10/17 22:30 Antibody Screen Negative 02/10/17 22:30 BBK History Checked Patient has bt 02/10/17 22:30 - Hospital Course Hospital Course: Reason for consult: AMS This is an 86 year old female with PMHx CAD S/P PCI, DM, HTN, dyslipidemia, arthritis, cognitive impairment who presented to the hospital with slurred speech. Patient was brought in by family due to increased lethargy with fevers, chills, and vomiting. Patient was septic and given fluids in the ED. Urinalysis reveals evidence of UTI which is the likely source of infection. This morning the patient reports that she feels better. Episodes of slurred speech are transient. Patient is complaining of fevers and chills. Denies weakness, headache, dizziness, CP, SOB, abdominal pain, dysuria. Assessment sepsis due to left sided pyelonephritis with associated gram negative bacilli bacteremia, clinically improving CAD S/P PCI DM HTN dyslipidemia history of arthritis history of cataract surgery obesity with BMI 35 chf , copd Plan continue Cefepime day 3 pending identification and sensitivities of the gram negative bacilli in the blood; urine cx is showing E. coli but we are still awaiting the final blood cx results reviewed CT scan of the abdomen and pelvis which showed left sided peripnephric stranding will monitor clinically, patient has been afebrile for more than 48 hours, id is on the case , will f/u dc pt .to tcu Discharge Exam - Head Exam Head Exam: NORMAL INSPECTION - Eye Exam Eye Exam: EOMI, Normal appearance, PERRL Pupil Exam: NORMAL ACCOMODATION, PERRL - ENT Exam ENT Exam: Normal Oropharynx - Neck Exam Neck exam: Full Rom - Respiratory Exam Respiratory Exam: Clear to PA & Lateral, NORMAL BREATHING PATTERN, UNREMARKABLE - Cardiovascular Exam Cardiovascular Exam: REGULAR RHYTHM, +S1, +S2 - GI/Abdominal Exam GI & Abdominal Exam: Normal Bowel Sounds - Rectal Exam Rectal Exam: NORMAL INSPECTION - Exam Exam: Circumcision, NORMAL INSPECTION External exam: NORMAL EXTERNAL EXAM Speculum exam: NORMAL SPECULUM EXAM Bimanual exam: NORMAL BIMANUAL EXAM - Extremities Exam Extremities exam: full ROM - Back Exam Back exam: NORMAL INSPECTION - Neurological Exam Neurological exam: Alert, CN II-XII Intact, Normal Gait, Oriented x3, Reflexes Normal - Psychiatric Exam Psychiatric exam: Normal Affect, Normal Mood - Skin Skin Exam: Dry, Intact, Normal Color, Warm Discharge Plan - Discharge Medications Prescriptions: Ciprofloxacin [Cipro] 500 mg PO Q12 7 Days - Follow Up Plan Condition: FAIR Disposition: TRANSF TO SNF Instructions: Ciprofloxacin (By mouth), Heart Failure (DC), Heart Failure (GEN) , Coronary Artery Disease (GEN), Pacemaker (DC), Pacemaker (GEN), Pulmonary Edema (DC), Pulmonary Edema (GEN), Dehydration (DC), Dehydration (GEN), Urinary Tract Infection in Women (DC), Urinary Tract Infection in Women (GEN), Urinary Tract Infection in Men (DC), Heart Healthy Diet (GEN), Syncope (DC), Syncope ( GEN), Cholesterol and Your Health (GEN), Meal Planning with Diabetes Exchanges ( GEN), Ascites (DC), Ascites (GEN), Dysuria (GEN), Heart Catheterization (GEN), Coronary Intravascular Stent Placement (GEN), Coronary Artery Disease in Women ( GEN) Additional Instructions: Discharge instructions; please follow s/p cardiac catherization and post angioplasty discharge instructions. Please call for assistance to reduce the risks of fall. Diet: Heart Healthy, low cholesterol, low fat and diabetic exchange diet Patient states she always refuses the flu and the pneumococcal vaccines. Referrals: Kyra Rossi MD [Primary Care Provider] -
--- NOTE | 2017-02-16 13:04 | CARD ---
APPROVED REPORT EKG Measurement Heart [id number] <Conclusion> Normal sinus rhythm Possible Anterior infarct, age undetermined Abnormal ECG
--- NOTE | 2017-02-20 13:39 | CARD ---
APPROVED REPORT EXAM: Two-dimensional and M-mode echocardiogram with Doppler and color Doppler. INDICATION Cardiac Disease: CAD LVFX 2D DIMENSIONS Left Atrium (2D)4.6 (1.6-4.0cm)IVSd1.4 (0.7-1.1cm) LVDd3.9 (3.9-5.9cm)LVOT Diameter1.9 (1.8-2.4cm) PWd1.3 (0.7-1.1cm)LVDs2.7 (2.5-4.0cm) FS (%) 29.5 %LVEF (%)57.2 (>50%) M-Mode DIMENSIONS Aortic Root3.50 (2.2-3.7cm)Aortic Cusp Exc.1.10 (1.5-2.0cm) Aortic Valve AoV Peak Yqepdtah919.0cm/sAoV VTI49.0cmAO Peak GR.25mmHg LVOT Peak Dchkzgax11.8cm/sLVOT VTI17.90cmAO Mean GR.16mmHg HELIO (VMAX)1.34yo8UQE (VTI)1.98kh8KN P 1/2 Cgbj779bz Mitral Valve MV E Skietfyx04.1cm/sMV A Mgdwoqtr228.0cm/sMV FJT81ja E/A ratio0.5MVA (PHT)2.75cm2 TDI Lateral E' Peak V9.36cm/sMedial E' Peak V5.75cm/sE/Lateral E'7.4 E/Medial E'12.0 Pulmonary Valve PV Peak Eqrnkgvj42.5cm/sPV Peak Grad.4mmHg Tricuspid Valve TR Peak Pkoqxzak683ht/sRAP CPJVDNJJ54rqTwFW Peak Gr.30mmHg [id number] LEFT VENTRICLE There is mild concentric left ventricular hypertrophy. The left ventricular function is normal. The left ventricular ejection fraction is within the normal range. RIGHT VENTRICLE The right ventricle is normal size. ATRIA The left atrium is mildly dilated. The right atrium size is normal. AORTIC VALVE The aortic valve is calcified and displays decreased opening. There is mild valvular aortic stenosis. MITRAL VALVE The mitral valve is calcified but opens well. Mitral annular calcification is moderate. TRICUSPID VALVE The tricuspid valve leaflets are thickened , but open well. There is trace to mild tricuspid regurgitation. There is mild pulmonary hypertension. PULMONIC VALVE The pulmonic valve is not well visualized. PERICARDIAL EFFUSION There is no pericardial effusion. <Conclusion> LVH with good LV function Dilated LA Calcified Aov with mild AoV stenosis MAC Mild MR and TR Mild pulm hypertension
== END 2017-02-15 18:17 | DRG 853 ==
LOC: ED 22:15 → ERH 02-11 02:34 → 2RNO 02-11 03:46 → 2RSO 02-14 14:47
PROVIDERS: ADMIT Internal Medicine; ATTEND Internal Medicine
PROC: 02703EZ Dilation of Coronary Artery, One Artery with Two Intraluminal Devices, Percutaneous Approach (ICD-10-PCS; principal; 2017-02-14)
PROC: 4A023N7 Measurement of Cardiac Sampling and Pressure, Left Heart, Percutaneous Approach (ICD-10-PCS; 2017-02-14)
PROC: B2051ZZ Plain Radiography of Left Heart using Low Osmolar Contrast (ICD-10-PCS; 2017-02-14)
PROC: B2011ZZ Plain Radiography of Multiple Coronary Arteries using Low Osmolar Contrast (ICD-10-PCS; 2017-02-14)
DX: A41.51 Sepsis due to Escherichia coli [E. coli] (principal); I21.4 Non-ST elevation (NSTEMI) myocardial infarction; E87.2 Acidosis; N12 Tubulo-interstitial nephritis, not specified as acute or chronic; I50.9 Heart failure, unspecified; I11.0 Hypertensive heart disease with heart failure; J44.9 Chronic obstructive pulmonary disease, unspecified; I25.10 Atherosclerotic heart disease of native coronary artery without angina pectoris; M19.90 Unspecified osteoarthritis, unspecified site; E78.5 Hyperlipidemia, unspecified; R47.81 Slurred speech; E86.0 Dehydration; D64.9 Anemia, unspecified; E66.9 Obesity, unspecified; I65.22 Occlusion and stenosis of left carotid artery; E11.65 Type 2 diabetes mellitus with hyperglycemia; G47.30 Sleep apnea, unspecified; E83.51 Hypocalcemia; E78.00 Pure hypercholesterolemia, unspecified; Z95.5 Presence of coronary angioplasty implant and graft; Z68.35 Body mass index [BMI] 35.0-35.9, adult; Z79.4 Long term (current) use of insulin; Z98.49 Cataract extraction status, unspecified eye

== ENCOUNTER 2017-02-15 18:17 | Inpatient (IN) | payer OTHER, MEDICARE ==
[2017-02-15 19:10] VITALS: BMI 30.6
[2017-02-15] MEDS ORDERED: Pneumococcal 23-Valent Vaccine IM ONE (21:07)
[2017-02-15] MEDS: Albuterol-Ipratrop 3 mg / 0.5 (3 ml) UD IH SCH (21:10)
[2017-02-15] MEDS: Insulin Detemir 100 units/ml Vial (Levemir) SC SCH (21:51)
[2017-02-15] MEDS: Insulin Reg-LOW-Coverage SC SCH (21:52)
[2017-02-16] MEDS: Albuterol-Ipratrop 3 mg / 0.5 (3 ml) UD IH SCH ×4 (02:30→20:57)
[2017-02-16] MEDS: Pantoprazole 40 mg EC Tab PO SCH (05:40)
[2017-02-16] MEDS: Insulin Reg-LOW-Coverage SC SCH ×4 (06:45→22:01)
[2017-02-16 07:24] LABS: HEMOGLOBIN 9.4 gm/dL (12.0-16.0); MEAN CELL VOLUME 101.4 fL (80.0-105.0); MEAN CORPUSCULAR HEMOGLOBIN 33.5 pg (25.0-35.0); MEAN PLATELET VOLUME 11.2 fl (7.0-11.0); RBC 2.81 10^6/uL (3.5-6.1); RED CELL DISTRIBUTION WIDTH 16.8 % (11.5-14.5); WHITE BLOOD COUNT 7.4 10^3/ul (4.5-11.0)
[2017-02-16 07:26] LABS: ALB/GLOB RATIO 1.1 (1.1-1.8); ALBUMIN 3.6 g/dL (3.0-4.8); ALT/SGPT 58 U/L (7-56); AST/SGOT 35 U/L (15-39); BLOOD UREA NITROGEN 20 mg/dL (7-21); CALCIUM 9.5 mg/dL (8.4-10.5); GFR AFRICAN-AMERICAN > 60; GFR NON-AFRICAN AMERICAN 60
[2017-02-16] MEDS: Calcium-Vit D 250 mg-125 Units Tab UD PO SCH (09:34)
--- NOTE | 2017-02-16 09:53 | CP.PCM.CON ---
<Shane Cooney - Last Filed: 02/16/17 12:07> History of Present Illness - History of Present Illness History of Present Illness: PGY-[address] [facility] Neurology [facility]: Reason for consult: AMS This is an 86 year old female with PMHx CAD S/P PCI, DM, HTN, dyslipidemia, arthritis, cognitive impairment who presented to the hospital with slurred speech. Patient was brought in by family due to increased lethargy with fevers, chills, and vomiting. Patient was septic and given fluids in the ED. Urinalysis revealed evidence of UTI which was the likely source of infection. This morning the patient reports that she feels better. The episodes of slurred speech were transient at the time. Patient denies fevers, chills, weakness, headache, dizziness, CP, SOB, abdominal pain, dysuria. Leukocytosis resolved from acute hospital stay. PMHx: CAD s/p stents, DM, HLD, arthritis, cognitive impairment PSHx: Cataract surgery Allergies: NKDA Social: Denies tobacco, alcohol, drugs. Review of Systems - Constitutional Constitutional: absent: Headache, Weakness - EENT Eyes: absent: Change in Vision Ears: absent: Decreased Hearing - Cardiovascular Cardiovascular: absent: Chest Pain - Respiratory Respiratory: absent: Dyspnea - Gastrointestinal Gastrointestinal: absent: Abdominal Pain, Nausea, Vomiting - Musculoskeletal Musculoskeletal: absent: Muscle Weakness - Neurological Neurological: absent: Dizziness, Numbness, Headaches, Tingling, Weakness Past Patient History - Infectious Disease Hx of Infectious Diseases: None - Past Social History Smoking Status: Never Smoked - CARDIAC Hx Cardiac Disorders: Yes Hx Hypercholesterolemia: Yes - PULMONARY Hx Respiratory Disorders: No - NEUROLOGICAL HX Cerebrovascular Accident: Yes - HEENT Hx Cataracts: Yes - RENAL Hx Chronic Kidney Disease: No - ENDOCRINE/METABOLIC Hx Diabetes Mellitus Type 1: Yes - HEMATOLOGICAL/ONCOLOGICAL Hx Blood Transfusions: No Hx Blood Transfusion Reaction: No - INTEGUMENTARY Hx Dermatological Problems: No - MUSCULOSKELETAL/RHEUMATOLOGICAL Hx Falls: Yes (past) - GASTROINTESTINAL Hx Gastrointestinal Disorders: (hx gi bleed/anemia) - GENITOURINARY/GYNECOLOGICAL Hx Reproductive Disorders: No - PSYCHIATRIC Hx Anxiety: Yes Hx Depression: Yes Hx Substance Use: No - SURGICAL HISTORY Hx Cardiac Catheterization: Yes Hx Coronary Stent: Yes (x2) Hx Orthopedic Surgery: Yes - ANESTHESIA Hx Anesthesia: Yes Hx Anesthesia Reactions: No Hx Malignant Hyperthermia: No Meds Allergies/Adverse Reactions: Allergies Allergy/AdvReac Type Severity Reaction Status Date / Time No Known Allergies Allergy Verified 02/16/17 12:14 - Medications Medications: Current Medications Acetaminophen (Tylenol 325mg Tab) 650 mg PO Q4 PRN; Protocol PRN Reason: FEVER OF 100.4 F AND ABOVE Albuterol/Ipratropium (Duoneb 3 Mg/0.5 Mg (3 Ml) Ud) 3 ml IH [id number] L[place]Y PRN Reason: Protocol Last Admin: 02/16/17 07:40 Dose: 3 ml Aspirin (Ecotrin) 81 mg PO DAILY [facility] PRN Reason: Protocol Last Admin: 02/16/17 09:32 Dose: 81 mg Atorvastatin Calcium (Lipitor) 40 mg PO DIN L[facility] Calcium/Vitamin D (Oscal-D 250 Mg-125 Units Tab) 2 tab PO DAILY [facility] PRN Reason: Protocol Last Admin: 02/16/17 09:34 Dose: 2 tab Cholecalciferol (Vitamin D) 1,000 iu PO DAILY [place] PRN Reason: Protocol Last Admin: 02/16/17 09:35 Dose: 1,000 iu Ciprofloxacin (Cipro) 500 mg PO Q12 [place] PRN Reason: Protocol Stop: 02/24/17 22:00 Last Admin: 02/15/17 21:53 Dose: 500 mg Clopidogrel Bisulfate (Plavix) 75 mg PO DAILY [place] PRN Reason: Protocol Last Admin: 02/16/17 09:35 Dose: 75 mg Ferrous Sulfate (Feosol) 324 mg PO DAILY [place] PRN Reason: Protocol Last Admin: 02/16/17 09:33 Dose: 324 mg Glipizide (Glucotrol) 5 mg PO ACBD [place] PRN Reason: Protocol Last Admin: 02/16/17 08:49 Dose: 5 mg Insulin Detemir (Levemir) 10 unit SC HS [facility] PRN Reason: Protocol Last Admin: 02/15/17 21:51 Dose: 10 unit Insulin Human Regular (Humulin R Low) 0 units SC ACHS [facility] PRN Reason: Protocol Last Admin: 02/16/17 06:45 Dose: 1 units Lisinopril (Zestril) 10 mg PO DAILY [place] Metoprolol Tartrate (Lopressor) 50 mg PO DAILY [place] PRN Reason: Protocol Last Admin: 02/16/17 09:33 Dose: 50 mg Pantoprazole Sodium (Protonix Ec Tab) 40 mg PO 0600 [place] PRN Reason: Protocol Last Admin: 02/16/17 05:40 Dose: 40 mg Physical Exam - Constitutional Appears: Non-toxic, No Acute Distress - Head Exam Head Exam: ATRAUMATIC, NORMAL INSPECTION, NORMOCEPHALIC - Eye Exam Eye Exam: EOMI, PERRL - ENT Exam ENT Exam: Mucous Membranes Moist - Respiratory Exam Respiratory Exam: Clear to Auscultation Bilateral - Cardiovascular Exam Cardiovascular Exam: REGULAR RHYTHM - GI/Abdominal Exam GI & Abdominal Exam: Normal Bowel Sounds - Neurological Exam Neurological exam: Alert, CN II-XII Intact, Oriented x3, Reflexes Normal Additional comments: Manual muscle testing 5/5 bilateral upper and lower extremities. No pronator drift. Down-going plantar responses. Poor attention at times. Results - Vital Signs Recent Vital Signs: Last Vital Signs Temp 98 F 02/15/17 20:57 Pulse 86 02/16/17 09:33 Resp 17 02/15/17 20:57 BP 113/52 L 02/16/17 09:33 Pulse Ox - Labs Result Diagrams: 02/16/17 06:25 02/16/17 06:25 Labs: Laboratory Results - last 24 hr 02/16/17 02/16/17 06:25 06:25 WBC 7.4 D RBC 2.81 L Hgb 9.4 L Hct 28.5 L MCV 101.4 MCH 33.5 MCHC 33.0 RDW 16.8 H Plt Count 198 MPV 11.2 H Sodium 135 Potassium 4.3 Chloride 96 Carbon Dioxide 29 Anion Gap 14 BUN 20 Creatinine 0.9 Est GFR ( Amer) > 60 Est GFR (Non-Af Amer) 60 Random Glucose 138 H Calcium 9.5 Total Bilirubin 0.3 AST 35 ALT 58 H Alkaline Phosphatase 81 Total Protein 6.8 Albumin 3.6 Globulin 3.2 Albumin/Globulin Ratio 1.1 Assessment & Plan - Assessment and Plan (Free Text) Assessment: This is an 86 year old female with PMHx CAD S/P PCI, DM, HTN, dyslipidemia, arthritis, cognitive impairment who presented to the hospital with slurred speech. It is likely that an episode of cerebral hypoperfusion along with underlying sepsis superimposed on baseline cognitive impairment was what caused the change in mental status in terms of the transient slurred speech. Sepsis was likely from UTI as evidenced by urinalysis. Leukocytosis resolved and patient is afebrile. 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 Patient recently underwent PCI and received 2 BMS. Patient with gait dysfunction due to deconditioned state. CT Head 02/10/17 BRAIN: Chronic periventricular white matter ischemic changes are again seen extending peripherally into the deep and subcortical white matter both cerebral hemispheres. More discrete chronic appearing infarct in the left basal ganglia and left superior frontal deep and subcortical white matter again noted as well associate with localized ex vacuo dilatation of the left frontal horn and anterior body left lateral ventricle. Scattered bilateral cerebellar and brainstem ischemic changes are less well seen on this study compared to high- resolution MRI. Moderate central volume loss also present not withstanding the aforementioned localized ex vacuo dilatation left frontal horn and anterior body left lateral ventricle. Vascular calcifications both carotid siphons and vertebral arteries. IMPRESSION: No acute intracranial hemorrhage. Chronic white matter and left basal ganglia ischemic changes with ex vacuo dilatation left frontal horn and anterior body left lateral ventricle. 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 . Moderate central volume loss MRI Brain 01/23/17 HEMORRHAGE: None DWI: No evidence of an acute or early subacute infarction. BRAIN PARENCHYMA: No mass,mass effect or edema. There is an old lacunar infarcts in the left basal ganglia and pena radiata. There is some ipsilateral dilatation of the left lateral ventricle. Chronic microvascular changes are seen. IMPRESSION: No acute intracranial findings. Plan: 1) Maintain adequate hydration. 2) Maintain SBP between 130-140 mmHg. 3) Monitor and correct electrolytes. 4) Avoid hypotensive episodes. 5) Continue ASA 81 mg, Plavix 75 mg, Lipitor 10 mg daily for stroke prevention. 6) Patient's advised on cognitive exercises to be done at home. 7) Continue PT/OT treatment Patient is neurologically stable. Thank you for this consult. Case discussed with Dr. Falguni Cooney, PGY-1 - Date & Time Date: 02/16/17 Time: 09:45 <Danielito Montes De Oca - Last Filed: 02/16/17 14:27> Meds - Medications Medications: Current Medications Acetaminophen (Tylenol 325mg Tab) 650 mg PO Q4 PRN; Protocol PRN Reason: FEVER OF 100.4 F AND ABOVE Albuterol/Ipratropium (Duoneb 3 Mg/0.5 Mg (3 Ml) Ud) 3 ml IH [id number] [place] PRN Reason: Protocol Last Admin: 02/16/17 13:39 Dose: 3 ml Aspirin (Ecotrin) 81 mg PO DAILY [place] PRN Reason: Protocol Last Admin: 02/16/17 09:32 Dose: 81 mg Atorvastatin Calcium (Lipitor) 40 mg PO DIN [place] Calcium/Vitamin D (Oscal-D 250 Mg-125 Units Tab) 2 tab PO DAILY [place] PRN Reason: Protocol Last Admin: 02/16/17 09:34 Dose: 2 tab Cholecalciferol (Vitamin D) 1,000 iu PO DAILY [facility] PRN Reason: Protocol Last Admin: 02/16/17 09:35 Dose: 1,000 iu Ciprofloxacin (Cipro) 500 mg PO Q12 [place] PRN Reason: Protocol Stop: 02/24/17 22:00 Last Admin: 02/16/17 10:18 Dose: 500 mg Clopidogrel Bisulfate (Plavix) 75 mg PO DAILY [place] PRN Reason: Protocol Last Admin: 02/16/17 09:35 Dose: 75 mg Ferrous Sulfate (Feosol) 324 mg PO DAILY [place] PRN Reason: Protocol Last Admin: 02/16/17 09:33 Dose: 324 mg Glipizide (Glucotrol) 5 mg PO ACBD [place] PRN Reason: Protocol Last Admin: 02/16/17 08:49 Dose: 5 mg Insulin Detemir (Levemir) 10 unit SC HS [facility] PRN Reason: Protocol Last Admin: 02/15/17 21:51 Dose: 10 unit Insulin Human Regular (Humulin R Low) 0 units SC ACHS [facility] PRN Reason: Protocol Last Admin: 02/16/17 13:18 Dose: 4 units Lisinopril (Zestril) 10 mg PO DAILY [facility] Last Admin: 02/16/17 10:24 Dose: 10 mg Metoprolol Tartrate (Lopressor) 50 mg PO DAILY [place] PRN Reason: Protocol Last Admin: 02/16/17 09:33 Dose: 50 mg Pantoprazole Sodium (Protonix Ec Tab) 40 mg PO 0600 [place] PRN Reason: Protocol Last Admin: 02/16/17 05:40 Dose: 40 mg Results - Vital Signs Recent Vital Signs: Last Vital Signs Temp 98.2 F 02/16/17 10:00 Pulse 91 H 02/16/17 10:24 Resp 12 02/16/17 10:00 BP 135/59 L 02/16/17 10:24 Pulse Ox 100 02/16/17 10:00 - Labs Result Diagrams: 02/16/17 06:25 02/16/17 06:25 Labs: Laboratory Results - last 24 hr 02/16/17 02/16/17 06:25 06:25 WBC 7.4 D RBC 2.81 L Hgb 9.4 L Hct 28.5 L MCV 101.4 MCH 33.5 MCHC 33.0 RDW 16.8 H Plt Count 198 MPV 11.2 H Sodium 135 Potassium 4.3 Chloride 96 Carbon Dioxide 29 Anion Gap 14 BUN 20 Creatinine 0.9 Est GFR ( Amer) > 60 Est GFR (Non-Af Amer) 60 Random Glucose 138 H Calcium 9.5 Total Bilirubin 0.3 AST 35 ALT 58 H Alkaline Phosphatase 81 Total Protein 6.8 Albumin 3.6 Globulin 3.2 Albumin/Globulin Ratio 1.1 Attending/Attestation - Attestation I have personally seen and examined this patient.: Yes I have fully participated in the care of the patient.: Yes I have reviewed all pertinent clinical information: Yes
--- NOTE | 2017-02-16 16:15 | PN ---
DATE: 02/16/2017 SUBJECTIVE: The patient is in the TCU, participating physical therapy. PHYSICAL EXAMINATION: VITAL SIGNS: Blood pressure is 113/52 and heart rate is in the 80s. NECK: Negative JVD. HEART: Reveals S1 and S2. LUNGS: Without rales. EXTREMITIES: Without edema. LABORATORY DATA: Reveal BUN and creatinine of 20 and 0.9. Glucose is 138. Hemoglobin is 9.4. IMPRESSION: 1. Status post [id number] myocardial infarction. 2. Coronary artery disease. 3. Status post percutaneous transluminal coronary angioplasty and stent. 4. Anemia. PLAN: Given these findings, the patient is tolerating physical therapy well. She should benefit from physical therapy and stay in the TCU given her weakness. Kg Hull MD
[2017-02-16] MEDS: Insulin Detemir 100 units/ml Vial (Levemir) SC SCH (22:01)
--- NOTE | 2017-02-17 01:18 | CP.PCM.HP ---
History of Present Illness - History of Present Illness History of Present Illness: 02/16/17 . h/p This is an 86 year old female with PMHx CAD S/P PCI, DM, HTN, dyslipidemia, arthritis, cognitive impairment who presented to the hospital with slurred speech. Patient was brought in by family due to increased lethargy with fevers, chills, and vomiting. Patient was septic and given fluids in the ED. Urinalysis revealed evidence of UTI which was the likely source of infection. This morning the patient reports that she feels better. The episodes of slurred speech were transient at the time. Patient denies fevers, chills, weakness, headache, dizziness, CP, SOB, abdominal pain, dysuria. Leukocytosis resolved from acute hospital stay. Present on Admission - Present on Admission Any Indicators Present on Admission: No Review of Systems - Constitutional Constitutional: As Per HPI - EENT Eyes: As Per HPI Ears: As Per HPI Nose/Mouth/Throat: As Per HPI - Breasts Breasts: As Per HPI - Cardiovascular Cardiovascular: As Per HPI - Respiratory Respiratory: As Per HPI - Gastrointestinal Gastrointestinal: As Per HPI - Musculoskeletal Musculoskeletal: As Per HPI - Integumentary Integumentary: As Per HPI - Neurological Neurological: As Per HPI - Psychiatric Psychiatric: As Per HPI - Endocrine Endocrine: As Per HPI - Hematologic/Lymphatic Hematologic: As Per HPI Past Patient History - Infectious Disease Hx of Infectious Diseases: None - Past Social History Smoking Status: Never Smoked - CARDIAC Hx Cardiac Disorders: Yes Hx Hypertension: Yes - PULMONARY Hx Respiratory Disorders: No - NEUROLOGICAL HX Cerebrovascular Accident: Yes - HEENT Hx Cataracts: Yes - RENAL Hx Chronic Kidney Disease: No - ENDOCRINE/METABOLIC Hx Diabetes Mellitus Type 2: Yes - HEMATOLOGICAL/ONCOLOGICAL Hx Blood Transfusions: No Hx Blood Transfusion Reaction: No - INTEGUMENTARY Hx Dermatological Problems: No - MUSCULOSKELETAL/RHEUMATOLOGICAL Hx Arthritis: Yes - GASTROINTESTINAL Hx Gastrointestinal Disorders: (hx gi bleed/anemia) - GENITOURINARY/GYNECOLOGICAL Hx Reproductive Disorders: No - PSYCHIATRIC Hx Anxiety: Yes Hx Depression: Yes Hx Substance Use: No - SURGICAL HISTORY Hx Cardiac Catheterization: Yes Hx Coronary Stent: Yes (x2) Hx Orthopedic Surgery: Yes - ANESTHESIA Hx Anesthesia: Yes Hx Anesthesia Reactions: No Hx Malignant Hyperthermia: No Meds Allergies/Adverse Reactions: Allergies Allergy/AdvReac Type Severity Reaction Status Date / Time No Known Allergies Allergy Verified 02/16/17 12:14 Physical Exam - Constitutional Appears: Well - Head Exam Head Exam: ATRAUMATIC, NORMAL INSPECTION, NORMOCEPHALIC - Eye Exam Eye Exam: EOMI, Normal appearance, PERRL Pupil Exam: NORMAL ACCOMODATION, PERRL - ENT Exam ENT Exam: Mucous Membranes Moist, Normal Exam - Neck Exam Neck exam: Positive for: Normal Inspection - Respiratory Exam Respiratory Exam: Clear to Auscultation Bilateral, NORMAL BREATHING PATTERN - Cardiovascular Exam Cardiovascular Exam: REGULAR RHYTHM - GI/Abdominal Exam GI & Abdominal Exam: Normal Bowel Sounds, Soft. absent: Tenderness - Rectal Exam Rectal Exam: NORMAL INSPECTION - Exam Exam: Circumcision, NORMAL INSPECTION External exam: NORMAL EXTERNAL EXAM Speculum exam: NORMAL SPECULUM EXAM Bimanual exam: NORMAL BIMANUAL EXAM - Extremities Exam Extremities exam: Positive for: normal inspection - Back Exam Back exam: NORMAL INSPECTION - Neurological Exam Neurological exam: Alert, CN II-XII Intact, Normal Gait, Oriented x3, Reflexes Normal - Psychiatric Exam Psychiatric exam: Normal Affect, Normal Mood - Skin Skin Exam: Dry, Intact, Normal Color, Warm Results - Vital Signs Recent Vital Signs: Last Vital Signs Temp 98.1 F 02/16/17 16:00 Pulse 88 02/16/17 16:00 Resp 18 02/16/17 16:00 BP 107/51 L 02/16/17 16:00 Pulse Ox 95 02/16/17 16:00 - Labs Result Diagrams: 02/16/17 06:25 02/16/17 06:25 Labs: Laboratory Results - last 24 hr 02/16/17 02/16/17 02/16/17 06:25 06:25 11:31 WBC 7.4 D RBC 2.81 L Hgb 9.4 L Hct 28.5 L MCV 101.4 MCH 33.5 MCHC 33.0 RDW 16.8 H Plt Count 198 MPV 11.2 H Sodium 135 Potassium 4.3 Chloride 96 Carbon Dioxide 29 Anion Gap 14 BUN 20 Creatinine 0.9 Est GFR ( Amer) > 60 Est GFR (Non-Af Amer) 60 POC Glucose (mg/dL) 337 H Random Glucose 138 H Calcium 9.5 Total Bilirubin 0.3 AST 35 ALT 58 H Alkaline Phosphatase 81 Total Protein 6.8 Albumin 3.6 Globulin 3.2 Albumin/Globulin Ratio 1.1 02/16/17 02/16/17 17:35 21:34 WBC RBC Hgb Hct MCV MCH MCHC RDW Plt Count MPV Sodium Potassium Chloride Carbon Dioxide Anion Gap BUN Creatinine Est GFR ( Amer) Est GFR (Non-Af Amer) POC Glucose (mg/dL) 269 H 179 H Random Glucose Calcium Total Bilirubin AST ALT Alkaline Phosphatase Total Protein Albumin Globulin Albumin/Globulin Ratio Assessment & Plan (1) + est Status: Acute (2) Anemia Status: Acute (3) Anemia Status: Acute (4) CAD (coronary artery disease) Status: Acute (5) CHF (congestive heart failure) Status: Acute (6) CHF (congestive heart failure) Status: Acute (7) COPD (chronic obstructive pulmonary disease) Status: Acute (8) Dehydration Status: Acute (9) Hx of heart artery stent Status: Acute (10) Near syncope Status: Acute (11) Syncope Status: Acute (12) Urinary tract infection Status: Acute - Assessment and Plan (Free Text) Assessment: 86 yearsold lady with multiple problems , had cad . s/p cardic stenting , copd , uti , getting anb , as per id , pt ot , and contenuety of care , neuro , and pulmonary is on the case
[2017-02-17] MEDS: Albuterol-Ipratrop 3 mg / 0.5 (3 ml) UD IH SCH ×4 (02:00→19:53)
--- NOTE | 2017-02-17 04:33 | CON ---
DATE: 02/16/2017 CHIEF COMPLAINT: Weakness since several days. HISTORY OF PRESENT ILLNESS: This is an 86-year-old female who was in the hospital recently with a left-sided pyelonephritis in the acute care with E. coli bacteremia and was switched to p.o. Cipro and transferred to transitional care for further treatment. The patient has no nausea or vomiting. No chest pain. No abdominal pain. No dysuria or frequency . She is much improved. PAST MEDICAL HISTORY: Significant for coronary artery disease, diabetes mellitus, hypertension, dyslipidemia, and arthritis. PAST SURGICAL HISTORY: Significant for cataract surgery. The patient also has obesity with a BMI of 35. The patient is not a smoker. She does have history of cerebrovascular accident and high cholesterol and dementia. ALLERGIES: THE PATIENT HAS NO KNOWN ALLERGIES. MEDICATIONS: Reviewed. PHYSICAL EXAMINATION: VITAL SIGNS: Temperature is 98, blood pressure is 120/70, respiratory rate of 16, and heart rate of 82. HEENT: Unremarkable. NECK: Supple. LUNGS: Clear. LABORATORY DATA: Examination reveals the patient's white count is 7.4, hemoglobin of 9, and platelets of 198. Chemistries reveal the patient's BUN of 20 and creatinine of 0.9. ASSESSMENT AND PLAN: This is an 86-year-old female seen early this morning in room 322 with her at the bedside who states that the patient is doing much better, admitted with a history of diabetes, hypertension, coronary artery disease, dyslipidemia, dementia, cerebrovascular accident, arthritis, and obesity and admitted to acute care with sepsis with left-sided pyelonephritis with Escherichia coli bacteremia noted in the blood and Escherichia coli in the urine, pansensitive, and currently on p.o. Cipro to complete 10 days of p.o. Cipro therapy. We will follow closely for any side effects of p.o. Cipro. Review of orders confirms the patient's Cipro to be active. Dr. Montes De Oca's consultation is reviewed and *------* is reviewed. We will follow closely with you. Dr. Kg Hull's note is also reviewed. Pablito Salter MD
[2017-02-17] MEDS: Pantoprazole 40 mg EC Tab PO SCH (05:48)
[2017-02-17] MEDS: Insulin Reg-LOW-Coverage SC SCH ×4 (06:34→21:44)
[2017-02-17] MEDS: Calcium-Vit D 250 mg-125 Units Tab UD PO SCH (09:37)
--- NOTE | 2017-02-17 10:32 | CON ---
DATE: 02/16/2017. PULMONARY CONSULTATION REFERRING PHYSICIAN: Dr. Gomez. REASON FOR CONSULTATION: Shortness of breath, may have sleep apnea syndrome, coronary artery disease, status post coronary stenting. HISTORY OF PRESENT ILLNESS: This is an 86-year-old female with past medical history of significant coronary artery disease, history of diabetes, hypertension, and arthritis who was admitted to the hospital recently with UTI, found to have cardiac issues, ended up with cardiac cath requiring stent, presently admitted to TICU to continue care. She admits to have snoring, daytime sleepy and tired, short of breath with minimal exertion. No hemoptysis, hematemesis, or hematuria. Does have leg swelling. PAST MEDICAL HISTORY: Coronary artery disease, status post coronary stent; hyperlipidemia; diabetes; and arthritis. SOCIAL HISTORY: Nonsmoker and nondrinker. ALLERGIES: None known. FAMILY HISTORY: No significant cardiopulmonary disease reported. MEDICATIONS: The patient is on Cipro 500 mg twice a day, DuoNeb q. 6 hours, Ecotrin 81 mg daily, ferrous sulfate 325 mg daily, glipizide 5 mg a.c. b.i.d., insulin coverage, Levemir 10 units subcu at bedtime, Lipitor 40 mg daily, metoprolol tartrate 50 mg daily, vitamin D two tabs daily, Plavix 75 mg daily, Protonix 40 mg daily,Tylenol p.r.n. basis, vitamin D 1000 international units daily, and Zestril 10 mg daily. REVIEW OF SYSTEMS: No headache. No rhinitis. Admits to have snoring, short of breath with exertion. No chest pain. No abdominal pain. No dysuria. She does have leg swelling. PHYSICAL EXAMINATION GENERAL: In no acute distress. VITAL SIGNS: Temp is 98, heart rate 88, respiratory rate 18, blood pressure 107/51, pulse ox 95% on room air. HEENT: Moist mucous membrane. Crowded airway. Mallampati score is 4. NECK: Short thick neck. LUNGS: Has few crackles at bases. HEART: S1 and S2. ABDOMEN: Soft and nontender. No organomegaly. EXTREMITIES: She has edema. NEUROLOGIC: Awake and alert, follows simple commands. LABORATORY DATA: Shows hemoglobin 9.4, hematocrit 28.5, WBC 7.4, platelet is 198. Sodium 135, potassium 4.3, chloride 96, bicarbonate 29, BUN 20, creatinine 0.9, glucose 138, calcium 9.5. AST 35, ALT 58, alkaline phosphatase is 81, albumin 3.6. IMPRESSION AND PLAN: Coronary artery disease, status post coronary artery stent; bacteremia with origin, diabetes; hypertension; hyperlipidemia, may have sleep apnea syndrome. I spoke to the patient's , who was at the bedside. All the questions were answered. Sleep apnea precaution, keep head 45 degrees. Gastric prophylaxis, deep vein thrombosis prophylaxis, antibiotics, and fall precautions. Start physical therapy. Thank you and we will follow with you. Prabhjot Ha MD
--- NOTE | 2017-02-17 12:02 | PN ---
CARDIOLOGY FOLLOWUP DATE OF FOLLOWUP: 02/17/2017 SUBJECTIVE: The patient is eating breakfast without issues. No chest pain noted. PHYSICAL EXAMINATION: VITAL SIGNS: Blood pressure is 109/45, the heart rate is in the 80s. NECK: Negative JVD. LUNGS: Without rales. HEART: With S1 and S2. EXTREMITIES: Without edema. LABORATORY DATA: Revealed a glucose of 175. IMPRESSION: 1. Status post non-ST elevation myocardial infarction. 2. Status post PTCA and stent and RCA with bare-metal stents. 3. Diabetes mellitus. 4. Hypercholesteremia. 5. Hypertension. Given these findings, the patient will need to be on Plavix for 3 to 4 weeks. We will decrease her lisinopril to 5 daily given her blood pressure measurement today. Kg Hull MD
--- NOTE | 2017-02-17 17:47 | CP.PCM.PN ---
Subjective - Date & Time of Evaluation Date of Evaluation: 02/17/17 Time of Evaluation: 12:30 - Subjective Subjective: Resting comfortably in bed, not in distress. Objective - Vital Signs/Intake and Output Vital Signs (last 24 hours): Temp Pulse Resp BP Pulse Ox 98.6 F 87 16 109/45 L 95 02/17/17 05:35 02/17/17 05:35 02/17/17 05:35 02/17/17 05:35 02/17/17 05:35 Intake and Output: 02/17/17 02/17/17 06:59 18:59 Intake Total 420 Balance 420 - Medications Medications: Current Medications Acetaminophen (Tylenol 325mg Tab) 650 mg PO Q4 PRN; Protocol PRN Reason: FEVER OF 100.4 F AND ABOVE Albuterol/Ipratropium (Duoneb 3 Mg/0.5 Mg (3 Ml) Ud) 3 ml IH [id number] [facility] PRN Reason: Protocol Last Admin: 02/17/17 07:34 Dose: 3 ml Aspirin (Ecotrin) 81 mg PO DAILY [facility] PRN Reason: Protocol Last Admin: 02/16/17 09:32 Dose: 81 mg Atorvastatin Calcium (Lipitor) 40 mg PO DIN [facility] Last Admin: 02/16/17 18:00 Dose: 40 mg Calcium/Vitamin D (Oscal-D 250 Mg-125 Units Tab) 2 tab PO DAILY [facility] PRN Reason: Protocol Last Admin: 02/16/17 09:34 Dose: 2 tab Cholecalciferol (Vitamin D) 1,000 iu PO DAILY [facility] PRN Reason: Protocol Last Admin: 02/16/17 09:35 Dose: 1,000 iu Ciprofloxacin (Cipro) 500 mg PO Q12 [facility] PRN Reason: Protocol Stop: 02/24/17 22:00 Last Admin: 02/16/17 21:30 Dose: 500 mg Clopidogrel Bisulfate (Plavix) 75 mg PO DAILY [facility] PRN Reason: Protocol Last Admin: 02/16/17 09:35 Dose: 75 mg Ferrous Sulfate (Feosol) 324 mg PO DAILY [facility] PRN Reason: Protocol Last Admin: 02/16/17 09:33 Dose: 324 mg Glipizide (Glucotrol) 5 mg PO ACBD [facility] PRN Reason: Protocol Last Admin: 02/16/17 17:59 Dose: 5 mg Insulin Detemir (Levemir) 10 unit SC HS [facility] PRN Reason: Protocol Last Admin: 02/16/17 22:01 Dose: 10 unit Insulin Human Regular (Humulin R Low) 0 units SC ACHS [facility] PRN Reason: Protocol Last Admin: 02/17/17 06:34 Dose: 1 units Lisinopril (Zestril) 5 mg PO DAILY [facility] Metoprolol Tartrate (Lopressor) 50 mg PO DAILY [facility] PRN Reason: Protocol Last Admin: 02/16/17 09:33 Dose: 50 mg Pantoprazole Sodium (Protonix Ec Tab) 40 mg PO 0600 [facility] PRN Reason: Protocol Last Admin: 02/17/17 05:48 Dose: 40 mg - Labs Labs: 02/16/17 06:25 02/16/17 06:25 - Constitutional Appears: Non-toxic, No Acute Distress - Head Exam Head Exam: NORMAL INSPECTION - Neck Exam Neck Exam: absent: Meningismus - Respiratory Exam Respiratory Exam: Decreased Breath Sounds - Cardiovascular Exam Cardiovascular Exam: +S1, +S2 - GI/Abdominal Exam GI & Abdominal Exam: Soft. absent: Tenderness Assessment and Plan - Assessment and Plan (Free Text) Plan: Assessment sepsis due to left sided pyelonephritis with associated E. coli bacteremia, clinically improving CAD S/P PCI DM HTN dyslipidemia history of arthritis history of cataract surgery obesity with BMI 35 Plan continue Ciprofloxacin (total 7 days of therapy) to complete 10 days will monitor clinically
[2017-02-17] MEDS: Insulin Detemir 100 units/ml Vial (Levemir) SC SCH (21:44)
--- NOTE | 2017-02-17 22:16 | PN ---
DATE: 02/17/2017 PULMONARY PROGRESS NOTE REFERRING PHYSICIAN: Dr. Gomez. SUBJECTIVE: The patient is out of bed to chair. is at bedside. Night was unremarkable. Done well in therapy, sleepy and tired. No nausea, no vomiting. No diarrhea. No significant leg swelling. OBJECTIVE: GENERAL: In no acute distress. VITAL SIGNS: Temp is 98, heart rate 87, respiratory rate is 20, blood pressure 109/45, pulse ox 95% on room air. HEENT: Moist mucous membranes. Crowded airway. Mallampati score is 4. NECK: Supple. No JVD. HEART: S1 and S2. LUNGS: Fair airflow with a few rhonchi. ABDOMEN: Soft, nontender. No organomegaly. EXTREMITIES: There is no edema. NEUROLOGIC: Awake, alert, follows simple command. LABORATORY DATA: Reviewed. Blood sugar this morning is 175. MEDICATIONS: She is on Cipro 500 mg twice a day, q.6 hours, Ecotrin 81 mg daily, ferrous sulfate 325 mg daily, glipizide 5 mg a.c. b.d., insulin coverage, Levemir 14 units subcu at bedtime, Lipitor 40 mg daily, metoprolol tartrate 50 mg daily, 5 mg daily, Protonix 40 mg daily, Tylenol p.r.n. vitamin D 1000 International Units daily, Zestril 5 mg daily. IMPRESSION AND PLAN: Coronary artery disease, status post coronary artery stent, bacteremia with genitourinary origin, diabetes, hypertension, hyperlipidemia, may have sleep apnea syndrome, activities of daily living dysfunction. I spoke to the patient and her at the bedside. All the question answered. Fall precautions. Sleep apnea precautions. Gastric prophylaxis, DVT prophylaxis. Continue antibiotics. Thank you and we will follow with you. Prabhjot Ha MD
--- NOTE | 2017-02-18 00:34 | CP.PCM.PN ---
Subjective - Date & Time of Evaluation Date of Evaluation: 02/17/17 Time of Evaluation: 01:20 - Subjective Subjective: pt is seen and examined at bed side , looking comfortable , no n,v,d , no beckwith dizzyness , getting pt , and anb Objective - Vital Signs/Intake and Output Vital Signs (last 24 hours): Temp Pulse Resp BP Pulse Ox 98.6 F 87 16 109/45 L 95 02/17/17 05:35 02/17/17 09:39 02/17/17 05:35 02/17/17 09:39 02/17/17 05:35 Intake and Output: 02/17/17 02/18/17 18:59 06:59 Intake Total 420 Balance 420 - Medications Medications: Current Medications Acetaminophen (Tylenol 325mg Tab) 650 mg PO Q4 PRN; Protocol PRN Reason: FEVER OF 100.4 F AND ABOVE Albuterol/Ipratropium (Duoneb 3 Mg/0.5 Mg (3 Ml) Ud) 3 ml IH [id number] [facility] PRN Reason: Protocol Last Admin: 02/17/17 19:53 Dose: 3 ml Aspirin (Ecotrin) 81 mg PO DAILY [facility] PRN Reason: Protocol Last Admin: 02/17/17 09:35 Dose: 81 mg Atorvastatin Calcium (Lipitor) 40 mg PO DIN [facility] Last Admin: 02/17/17 17:48 Dose: 40 mg Calcium/Vitamin D (Oscal-D 250 Mg-125 Units Tab) 2 tab PO DAILY [facility] PRN Reason: Protocol Last Admin: 02/17/17 09:37 Dose: 2 tab Cholecalciferol (Vitamin D) 1,000 iu PO DAILY [facility] PRN Reason: Protocol Last Admin: 02/17/17 09:38 Dose: 1,000 iu Ciprofloxacin (Cipro) 500 mg PO Q12 [facility] PRN Reason: Protocol Stop: 02/24/17 22:00 Last Admin: 02/17/17 21:44 Dose: 500 mg Clopidogrel Bisulfate (Plavix) 75 mg PO DAILY [facility] PRN Reason: Protocol Last Admin: 02/17/17 09:37 Dose: 75 mg Ferrous Sulfate (Feosol) 324 mg PO DAILY [facility] PRN Reason: Protocol Last Admin: 02/17/17 09:36 Dose: 324 mg Glipizide (Glucotrol) 5 mg PO ACBD [facility] PRN Reason: Protocol Last Admin: 02/17/17 17:47 Dose: 5 mg Insulin Detemir (Levemir) 10 unit SC HS [facility] PRN Reason: Protocol Last Admin: 02/17/17 21:44 Dose: 10 unit Insulin Human Regular (Humulin R Low) 0 units SC ACHS [facility] PRN Reason: Protocol Last Admin: 02/17/17 21:44 Dose: Not Given Lisinopril (Zestril) 5 mg PO DAILY [facility] Last Admin: 02/17/17 09:39 Dose: 5 mg Metoprolol Tartrate (Lopressor) 50 mg PO DAILY [facility] PRN Reason: Protocol Last Admin: 02/17/17 09:36 Dose: 50 mg Pantoprazole Sodium (Protonix Ec Tab) 40 mg PO 0600 [facility] PRN Reason: Protocol Last Admin: 02/17/17 05:48 Dose: 40 mg - Labs Labs: 02/16/17 06:25 02/16/17 06:25 - Constitutional Appears: Well - Head Exam Head Exam: ATRAUMATIC, NORMAL INSPECTION, NORMOCEPHALIC - Eye Exam Eye Exam: EOMI, Normal appearance, PERRL Pupil Exam: NORMAL ACCOMODATION, PERRL - ENT Exam ENT Exam: Mucous Membranes Moist, Normal Exam - Neck Exam Neck Exam: Full ROM, Normal Inspection. absent: Lymphadenopathy - Respiratory Exam Respiratory Exam: Clear to Ausculation Bilateral, NORMAL BREATHING PATTERN - Cardiovascular Exam Cardiovascular Exam: REGULAR RHYTHM, +S1, +S2. absent: Murmur - GI/Abdominal Exam GI & Abdominal Exam: Soft, Normal Bowel Sounds. absent: Tenderness - Rectal Exam Rectal Exam: NORMAL INSPECTION - Exam Exam: Circumcision, NORMAL INSPECTION External exam: NORMAL EXTERNAL EXAM Speculum exam: NORMAL SPECULUM EXAM Bimanual exam: NORMAL BIMANUAL EXAM - Extremities Exam Extremities Exam: Full ROM, Normal Capillary Refill, Normal Inspection. absent : Joint Swelling, Pedal Edema - Back Exam Back Exam: NORMAL INSPECTION - Neurological Exam Neurological Exam: Alert, Awake, CN II-XII Intact, Normal Gait, Oriented x3 - Psychiatric Exam Psychiatric exam: Normal Affect, Normal Mood - Skin Skin Exam: Dry, Intact, Normal Color, Warm Assessment and Plan (1) + est Status: Acute (2) Anemia Status: Acute (3) Anemia Status: Acute (4) CAD (coronary artery disease) Status: Acute (5) CHF (congestive heart failure) Status: Acute (6) CHF (congestive heart failure) Status: Acute (7) COPD (chronic obstructive pulmonary disease) Status: Acute (8) Dehydration Status: Acute (9) Hx of heart artery stent Status: Acute (10) Near syncope Status: Acute (11) Syncope Status: Acute (12) Urinary tract infection Status: Acute - Assessment and Plan (Free Text) Assessment: Assessment sepsis due to left sided pyelonephritis with associated E. coli bacteremia, clinically improving CAD S/P PCI DM HTN dyslipidemia history of arthritis history of cataract surgery obesity with BMI 35 Plan continue Ciprofloxacin (total 7 days of therapy) to complete 10 days will monitor clinically
[2017-02-18] MEDS: Albuterol-Ipratrop 3 mg / 0.5 (3 ml) UD IH SCH ×4 (01:26→20:54)
[2017-02-18] MEDS: Pantoprazole 40 mg EC Tab PO SCH (05:21)
[2017-02-18] MEDS: Insulin Reg-LOW-Coverage SC SCH ×4 (06:53→21:33)
[2017-02-18] MEDS: Calcium-Vit D 250 mg-125 Units Tab UD PO SCH (09:53)
--- NOTE | 2017-02-18 12:18 | PN ---
DATE: 02/18/2017 SUBJECTIVE: The patient is in bed, in no acute distress, and nontoxic. PHYSICAL EXAMINATION: VITAL SIGNS: Temperature is 98, blood pressure is 105/60, and respiratory rate of 20. HEENT: Examination of HEENT is unremarkable. NECK: Supple. LUNGS: Decreased breath sounds. HEART: Normal S1 and S2. ABDOMEN: Soft and nontender. LABORATORY DATA: Examination reveals a white count of 7.4, hemoglobin of 9, and platelets of 198. Chemistries reveals creatinine of 0.9. ASSESSMENT AND PLAN: She is an 86-year-old female with sepsis to left-sided pyelonephritis associated with Escherichia coli bacteremia and coronary artery disease, status post percutaneous coronary intervention, diabetes mellitus, hypertension,dyslipidemia, history of arthritis, cataract surgery, obesity with day number 8 of Cipro, complete 10 days. Currently review of the orders reveals the patient to be still on Cipro p.o. and tolerating medication well. Pablito Salter MD
--- NOTE | 2017-02-18 20:46 | PN ---
PULMONARY PROGRESS NOTE DATE: 02/18/2017 REFERRING PHYSICIAN: Dr. Gomez. SUBJECTIVE: She is *------*. No headache. No rhinitis. No nausea, no vomiting. No leg pain, leg swelling, or shortness of breath with exertion. PHYSICAL EXAMINATION: GENERAL: In no acute distress. VITAL SIGNS: Temperature 99, heart rate is 93, respiratory rate is 18, blood pressure 125/58. HEENT: Moist mucous membrane. Crowded airway. Mallampati score is 4. NECK: Supple. No JVD. LUNGS: Fair air flow with rhonchi. HEART: S1 and S2. ABDOMEN: Soft, nontender. No organomegaly. EXTREMITIES: There is no significant edema. NEUROLOGIC: Awake and alert. Follow simple commands. LABORATORY DATA: Laboratory data shows blood sugar this morning is 197. MEDICATIONS: She is on Cipro 500 mg twice a day, DuoNeb q.6 hour, Ecotrin 81 mg daily, ferrous sulphate 325 mg daily, glipizide 5 mg before meals twice a day, insulin coverage, Levemir 10 units subcutaneous at bedtime, Lipitor 40 mg daily, metoprolol tartrate 50 mg daily, calcium plus vitamin D two times daily, Plavix 75 mg daily, Protonix 40 mg daily, Tylenol p.r.n. basis, vitamin D 1000 international unit daily, Zestril 5 mg daily. IMPRESSION AND PLAN: Coronary artery disease status post coronary artery *------* diabetes, hypertension, hyperlipidemia, may have sleep apnea syndrome, from pulmonary point of view keep head at 45 degrees, sleep apnea precaution, continue bronchodilator, gastric, and DVT prophylaxis. I will be following you. Prabhjot Ha MD
[2017-02-18] MEDS: Insulin Detemir 100 units/ml Vial (Levemir) SC SCH (21:34)
[2017-02-19] MEDS: Albuterol-Ipratrop 3 mg / 0.5 (3 ml) UD IH SCH ×4 (02:12→21:00)
--- NOTE | 2017-02-19 04:24 | PN ---
SUBJECTIVE: The patient is seen and examined at the bedside, looks comfortable, and sitting on the chair. No nausea, vomiting, or diarrhea, had bowel movement. Appetite is good. Sleep is good. No swelling of the legs. No shortness of breath. No change in the status. PHYSICAL EXAMINATION: VITAL SIGNS: Temperature 99, heart rate 93, respiratory rate 18, and blood pressure 125/58. HEENT: Head is normocephalic and atraumatic. Eyes; PERRLA. Extraocular muscles intact. Conjunctivae clear. Nose patent. Mucous membranes moist. NECK: Supple. No carotid bruit. No thyromegaly. CHEST: Bilaterally symmetrical. HEART: S1 and S2 positive. LUNGS: Clear to auscultation. ABDOMEN: Soft. Bowel sounds positive. No organomegaly. EXTREMITIES: No edema. No cyanosis. NEUROLOGIC: The patient is awake and alert. Moving all 4 extremities. No focal deficit. LABORATORY DATA: Blood sugar is 197. We do not have recent laboratory, but reviewed old labs. MEDICATIONS: 1. Ciprofloxacin. 2. DuoNeb. 3. Ecotrin. 4. Ferrous sulfate. 5. Glipizide. 6. Insulin. 7. Lipitor. 8. Metoprolol. 9. Calcium. 10. Plavix. 11. Protonix. ASSESSMENT AND PLAN: Ms. Rosemary Power is an 86-year-old lady with multiple medical problems who has urinary tract infection, sepsis, got IV antibiotics, got better, now getting p.o. Cipro. Coronary artery disease, status post coronary artery stenting; diabetes mellitus; hypertension; hypercholesterolemia; sleep apnea syndrome; IV bronchodilators; gastrointestinal and deep venous thrombosis prophylaxis, continue antibiotics, physical therapy, and we will follow up. Margaret Gomez MD MTDD
[2017-02-19] MEDS: Pantoprazole 40 mg EC Tab PO SCH (05:43)
[2017-02-19] MEDS: Insulin Reg-LOW-Coverage SC SCH ×4 (06:57→21:26)
[2017-02-19] MEDS: Calcium-Vit D 250 mg-125 Units Tab UD PO SCH (10:27)
--- NOTE | 2017-02-19 10:35 | PN ---
DATE: 02/19/2017 SUBJECTIVE: The patient is in bed, in no acute distress, nontoxic. PHYSICAL EXAMINATION: VITAL SIGNS: Temperature is 98, blood pressure is 120/90, respiratory rate of 18, heart rate of 93. HEENT: Unremarkable. NECK: Supple. LUNGS: Decreased breath sounds. HEART: Normal S1 and S2. ABDOMEN: Soft and nontender. LABORATORY DATA: Examination reveals a white count of 7.4, hemoglobin of 9, and platelets of 198. Creatinine is 0.9. Microbiology is noted. Dr. Gomez's note is reviewed. ASSESSMENT AND PLAN: This is an 86-year-old female with sepsis, left-sided pyelonephritis associated with Escherichia coli bacteremia and coronary artery disease, status post history of percutaneous coronary intervention, and diabetes, hypertension,dyslipidemia, history of arthritis and cataract surgery, obesity, today is day number 9 of Cipro with complete 10-14 days of Cipro. Review of orders reveals Cipro to be active. Pablito Salter MD
--- NOTE | 2017-02-19 19:13 | PN ---
DATE: 02/19/2017 PULMONARY PROGRESS NOTE REFERRING PHYSICIAN: Dr. Gomez. SUBJECTIVE: She is lying in the reclining chair. is at bedside. Night was unremarkable. Short of breath with exertion. No chest pain. No nausea, no vomiting, no diarrhea, no leg pain or leg swelling. Doing well in therapy. OBJECTIVE: GENERAL: In no acute distress. VITAL SIGNS: Temp is 98, heart rate is 82, respiratory rate is 18, blood pressure 100/48, pulse ox 95% on room air. HEENT: Moist mucous membranes. Small oral cavity. Crowded airway. NECK: Supple. No JVD. LUNGS: Has few crackles at bases. HEART: S1 and S2. ABDOMEN: Soft and nontender. No organomegaly. EXTREMITIES: There is a trace edema. NEUROLOGIC: Awake and alert, follows simple commands. MEDICATIONS: She is on Cipro 500 mg twice a day, DuoNeb q. 6 hour, Ecotrin 81 mg daily, ferrous sulphate 325 mg daily, glipizide 5 mg daily, insulin coverage, Levemir 10 units subcutaneous at bedtime, Lipitor 40 mg daily, metoprolol tartrate 50 mg daily, vitamin D two tabs daily, Plavix 75 mg daily, Protonix 40 mg daily, Tylenol p.r.n., vitamin D 1000 international unit daily, Zestril 5 mg daily. LABORATORY DATA: Shows blood sugar of 340 this morning. IMPRESSION AND PLAN: Coronary artery disease, status post coronary stent, diabetes, hypertension, hyperlipidemia, sleep apnea syndrome may be there. I spoke to the patient and her , all the question answered. Continue present care, gastric prophylaxis, DVT prophylaxis. Fall precautions. Continue therapy. We will get sleep study and *------* as the outpatient. Thank you and we will follow with you. Prabhjot Ha MD
[2017-02-19] MEDS: Insulin Detemir 100 units/ml Vial (Levemir) SC SCH (21:27)
[2017-02-20] MEDS: Albuterol-Ipratrop 3 mg / 0.5 (3 ml) UD IH SCH ×4 (02:30→20:43)
--- NOTE | 2017-02-20 04:03 | PN ---
DATE: 02/19/2017 SUBJECTIVE: The patient was seen and examined at the bedside, looking comfortable. Yesterday had bowel movement. is sitting in the bedside also. No hematuria or hematochezia, no swelling of the legs. No bubbling-like micturition. PHYSICAL EXAMINATION VITAL SIGNS: Temperature 98, pulse 82, respiratory rate 18, blood pressure 100/49, and pulse oximetry 95% on room air. HEENT: Head is normocephalic and atraumatic. Eyes; PERRLA, EOMs intact. Conjunctivae clear. Nose patent. Mucous membrane moist. NECK: Supple. No carotid bruits or thyromegaly. CHEST: Bilaterally symmetrical. HEART: S1 and S2, positive. LUNGS: Clear to auscultation. ABDOMEN: Soft. Bowel sounds present. No organomegaly. EXTREMITIES: No edema. No cyanosis. NEUROLOGIC: The patient is awake and alert. Moving all four extremities. No focal deficits. MEDICATIONS: Coreg, DuoNeb, Ecotrin, ferrous sulfate, glipizide, Levemir, Lipitor, metoprolol, vitamin D, Plavix, Protonix, Tylenol. LABORATORY DATA: We do not have recent laboratory, but reviewed old labs. Calcium was 340. ASSESSMENT AND PLAN: Ms. Rosemary Power is an 86-year-old female with coronary artery disease status post coronary artery stenting, hypertension, hypercholesterolemia, sleep apnea syndrome, urinary tract infection, deconditioned, obstructive sleep apnea. Length of time discussion done with the patient. All questions answered. Gastric prophylaxis, deep vein thrombosis prophylaxis, fall precautions, getting physical therapy. We will follow up. Margaret Gomez MD
[2017-02-20] MEDS: Pantoprazole 40 mg EC Tab PO SCH (05:50)
[2017-02-20] MEDS: Insulin Reg-LOW-Coverage SC SCH ×4 (06:31→21:49)
[2017-02-20] MEDS: Calcium-Vit D 250 mg-125 Units Tab UD PO SCH (10:04)
--- NOTE | 2017-02-20 11:46 | CP.PCM.PN ---
Subjective - Date & Time of Evaluation Date of Evaluation: 02/20/17 Time of Evaluation: 11:45 - Subjective Subjective: Comfortable on a chair, not in distress, afebrile, no dysuria. Objective - Vital Signs/Intake and Output Vital Signs (last 24 hours): Temp Pulse Resp BP Pulse Ox 98 F 82 18 100/48 L 97 02/19/17 15:39 02/19/17 15:39 02/19/17 15:39 02/19/17 15:39 02/19/17 15:39 Intake and Output: 02/20/17 02/20/17 06:59 18:59 Intake Total 600 420 Balance 600 420 - Medications Medications: Current Medications Acetaminophen (Tylenol 325mg Tab) 650 mg PO Q4 PRN; Protocol PRN Reason: FEVER OF 100.4 F AND ABOVE Albuterol/Ipratropium (Duoneb 3 Mg/0.5 Mg (3 Ml) Ud) 3 ml IH [id number] [facility] PRN Reason: Protocol Last Admin: 02/20/17 07:33 Dose: 3 ml Aspirin (Ecotrin) 81 mg PO DAILY [facility] PRN Reason: Protocol Last Admin: 02/19/17 10:26 Dose: 81 mg Atorvastatin Calcium (Lipitor) 40 mg PO DIN [facility] Last Admin: 02/19/17 18:38 Dose: 40 mg Calcium/Vitamin D (Oscal-D 250 Mg-125 Units Tab) 2 tab PO DAILY [facility] PRN Reason: Protocol Last Admin: 02/19/17 10:27 Dose: 2 tab Cholecalciferol (Vitamin D) 1,000 iu PO DAILY [facility] PRN Reason: Protocol Last Admin: 02/19/17 10:27 Dose: 1,000 iu Ciprofloxacin (Cipro) 500 mg PO Q12 [facility] PRN Reason: Protocol Stop: 02/24/17 22:00 Last Admin: 02/19/17 21:26 Dose: 500 mg Clopidogrel Bisulfate (Plavix) 75 mg PO DAILY [facility] PRN Reason: Protocol Last Admin: 02/19/17 10:27 Dose: 75 mg Ferrous Sulfate (Feosol) 324 mg PO DAILY [facility] PRN Reason: Protocol Last Admin: 02/19/17 10:26 Dose: 324 mg Glipizide (Glucotrol) 5 mg PO ACBD [facility] PRN Reason: Protocol Last Admin: 02/20/17 08:32 Dose: 5 mg Insulin Detemir (Levemir) 10 unit SC HS [facility] PRN Reason: Protocol Last Admin: 02/19/17 21:27 Dose: 10 unit Insulin Human Regular (Humulin R Low) 0 units SC ACHS [facility] PRN Reason: Protocol Last Admin: 02/20/17 06:31 Dose: 1 units Lisinopril (Zestril) 5 mg PO DAILY [facility] Last Admin: 02/19/17 10:28 Dose: 5 mg Metoprolol Tartrate (Lopressor) 50 mg PO DAILY [facility] PRN Reason: Protocol Last Admin: 02/19/17 10:27 Dose: 50 mg Pantoprazole Sodium (Protonix Ec Tab) 40 mg PO 0600 [facility] PRN Reason: Protocol Last Admin: 02/20/17 05:50 Dose: 40 mg - Labs Labs: 02/16/17 06:25 02/16/17 06:25 - Constitutional Appears: Non-toxic, No Acute Distress - Head Exam Head Exam: NORMAL INSPECTION - ENT Exam ENT Exam: Mucous Membranes Moist - Neck Exam Neck Exam: absent: Lymphadenopathy, Meningismus - Respiratory Exam Respiratory Exam: Decreased Breath Sounds - Cardiovascular Exam Cardiovascular Exam: +S1, +S2 - GI/Abdominal Exam GI & Abdominal Exam: Soft. absent: Tenderness Assessment and Plan - Assessment and Plan (Free Text) Plan: Assessment sepsis due to left sided pyelonephritis with associated E. coli bacteremia, clinically improving CAD S/P PCI DM HTN dyslipidemia history of arthritis history of cataract surgery obesity with BMI 35 Plan continue Ciprofloxacin (total 10 days of therapy) to complete 10-14 days will continue to monitor clinically while the patient is in the hospital
--- NOTE | 2017-02-20 14:15 | PN ---
CARDIOLOGY FOLLOWUP NOTE DATE OF FOLLOWUP: 02/20/2017 SUBJECTIVE: The patient worked in the gym with physical therapy and walked 200 steps. PHYSICAL EXAMINATION: VITAL SIGNS: Blood pressure is 95/69 and the heart rate is 110. NECK: Negative JVD. LUNGS: Without rales. HEART: Regular S1 and S2. EXTREMITIES: Without edema. LABORATORY DATA: Includes the glucose of 180. IMPRESSION: 1. Stable angina. 2. Coronary artery disease. 3. Status post percutaneous transluminal coronary angioplasty and stent. 4. Hypertension. 5. Diabetes mellitus. 6. Fatigue. ASSESSMENT AND PLAN: Given these findings, the patient has made significant progress while in the TCU. We will continue physical therapy. Her Plavix needs to continue for approximately 3 more weeks. Kg Hull MD
[2017-02-20] MEDS: Insulin Detemir 100 units/ml Vial (Levemir) SC SCH (21:50)
--- NOTE | 2017-02-21 00:33 | CP.PCM.PN ---
Subjective - Date & Time of Evaluation Date of Evaluation: 02/20/17 Time of Evaluation: 06:30 - Subjective Subjective: Comfortable on a chair, not in distress, afebrile, no dysuria.son was sitting on the bed , all questions answered .no n.v.d Objective - Vital Signs/Intake and Output Vital Signs (last 24 hours): Temp Pulse Resp BP Pulse Ox 96.9 F L 52 L 18 130/56 L 90 L 02/20/17 16:00 02/20/17 16:00 02/20/17 16:00 02/20/17 16:00 02/20/17 16:00 Intake and Output: 02/20/17 02/21/17 18:59 06:59 Intake Total 420 Balance 420 - Medications Medications: Current Medications Acetaminophen (Tylenol 325mg Tab) 650 mg PO Q4 PRN; Protocol PRN Reason: FEVER OF 100.4 F AND ABOVE Albuterol/Ipratropium (Duoneb 3 Mg/0.5 Mg (3 Ml) Ud) 3 ml IH [id number] [facility] PRN Reason: Protocol Last Admin: 02/20/17 20:43 Dose: 3 ml Aspirin (Ecotrin) 81 mg PO DAILY [facility] PRN Reason: Protocol Last Admin: 02/20/17 10:02 Dose: 81 mg Atorvastatin Calcium (Lipitor) 40 mg PO DIN [facility] Last Admin: 02/20/17 17:30 Dose: 40 mg Calcium/Vitamin D (Oscal-D 250 Mg-125 Units Tab) 2 tab PO DAILY [facility] PRN Reason: Protocol Last Admin: 02/20/17 10:04 Dose: 2 tab Cholecalciferol (Vitamin D) 1,000 iu PO DAILY [facility] PRN Reason: Protocol Last Admin: 02/20/17 10:05 Dose: 1,000 iu Ciprofloxacin (Cipro) 500 mg PO Q12 [facility] PRN Reason: Protocol Stop: 02/24/17 22:00 Last Admin: 02/20/17 21:49 Dose: 500 mg Clopidogrel Bisulfate (Plavix) 75 mg PO DAILY [facility] PRN Reason: Protocol Last Admin: 02/20/17 10:04 Dose: 75 mg Ferrous Sulfate (Feosol) 324 mg PO DAILY [facility] PRN Reason: Protocol Last Admin: 02/20/17 10:03 Dose: 324 mg Glipizide (Glucotrol) 5 mg PO ACBD [facility] PRN Reason: Protocol Last Admin: 02/20/17 17:29 Dose: 5 mg Insulin Detemir (Levemir) 10 unit SC HS [facility] PRN Reason: Protocol Last Admin: 02/20/17 21:50 Dose: 10 unit Insulin Human Regular (Humulin R Low) 0 units SC ACHS [facility] PRN Reason: Protocol Last Admin: 02/20/17 21:49 Dose: Not Given Lisinopril (Zestril) 5 mg PO DAILY [facility] Last Admin: 02/20/17 10:12 Dose: Not Given Metoprolol Tartrate (Lopressor) 50 mg PO DAILY [facility] PRN Reason: Protocol Last Admin: 02/20/17 10:03 Dose: Not Given Pantoprazole Sodium (Protonix Ec Tab) 40 mg PO 0600 [facility] PRN Reason: Protocol Last Admin: 02/20/17 05:50 Dose: 40 mg - Labs Labs: 02/16/17 06:25 02/16/17 06:25 - Constitutional Appears: Well - Head Exam Head Exam: ATRAUMATIC, NORMAL INSPECTION, NORMOCEPHALIC - Eye Exam Eye Exam: EOMI, Normal appearance, PERRL Pupil Exam: NORMAL ACCOMODATION, PERRL - ENT Exam ENT Exam: Mucous Membranes Moist, Normal Exam - Neck Exam Neck Exam: Full ROM, Normal Inspection. absent: Lymphadenopathy - Respiratory Exam Respiratory Exam: Clear to Ausculation Bilateral, NORMAL BREATHING PATTERN - Cardiovascular Exam Cardiovascular Exam: REGULAR RHYTHM, +S1, +S2. absent: Murmur - GI/Abdominal Exam GI & Abdominal Exam: Soft, Normal Bowel Sounds. absent: Tenderness - Rectal Exam Rectal Exam: NORMAL INSPECTION - Exam Exam: Circumcision, NORMAL INSPECTION External exam: NORMAL EXTERNAL EXAM Speculum exam: NORMAL SPECULUM EXAM Bimanual exam: NORMAL BIMANUAL EXAM - Extremities Exam Extremities Exam: Full ROM, Normal Capillary Refill, Normal Inspection. absent : Joint Swelling, Pedal Edema - Back Exam Back Exam: NORMAL INSPECTION - Neurological Exam Neurological Exam: Alert, Awake, CN II-XII Intact, Normal Gait, Oriented x3 - Psychiatric Exam Psychiatric exam: Normal Affect, Normal Mood - Skin Skin Exam: Dry, Intact, Normal Color, Warm Assessment and Plan (1) + est Status: Acute (2) Anemia Status: Acute (3) Anemia Status: Acute (4) CAD (coronary artery disease) Status: Acute (5) CHF (congestive heart failure) Status: Acute (6) CHF (congestive heart failure) Status: Acute (7) COPD (chronic obstructive pulmonary disease) Status: Acute (8) Dehydration Status: Acute (9) Hx of heart artery stent Status: Acute (10) Near syncope Status: Acute (11) Syncope Status: Acute (12) Urinary tract infection Status: Acute - Assessment and Plan (Free Text) Assessment: Assessment sepsis due to left sided pyelonephritis with associated E. coli bacteremia, clinically improving CAD S/P PCI DM HTN dyslipidemia history of arthritis history of cataract surgery obesity with BMI 35 Plan continue Ciprofloxacin (total 10 days of therapy) to complete 10-14 days will continue to monitor clinically while the patient is in the hospital
--- NOTE | 2017-02-21 01:20 | PN ---
DATE: 02/20/2017 PULMONARY PROGRESS NOTE: REFERRING PHYSICIAN: Dr. Gomez. SUBJECTIVE: The patient is lying in the bed. is at bedside. Doing well in therapy. Night was unremarkable. No chest pain. No nausea, no vomiting, no diarrhea, no leg pain or leg swelling. OBJECTIVE: GENERAL: In no acute distress VITAL SIGNS: Temperature is 98, heart rate is 82, respiratory rate is 20, blood pressure 130/56, pulse ox 98% on room air. HEENT: Moist mucous membranes. Small oral cavity. Crowded airway. NECK: Supple. No JVD. LUNGS: Fair airflow with rhonchi. HEART: S1 and S2. ABDOMEN: Soft and nontender. No organomegaly. EXTREMITIES: There is no t much edema. NEUROLOGIC: Awake, alert, follows simple commands. MEDICATIONS: She is on Cipro 500 mg twice a day, DuoNeb q 6 hour, Ecotrin 81 mg daily, ferrous sulphate 325 mg daily, glipizide 5 mg a.c. b.i.d., insulin coverage, Levemir 10 units subcutaneous at bedtime, Lipitor 40 mg daily, metoprolol tartrate 50 mg daily, Plavix 75 mg daily, Protonix 40 mg daily, Tylenol p.r.n. basis, vitamin D 1000 international unit daily, and Zestril 5 mg daily. LABORATORY DATA: Shows blood sugar this morning is 180. IMPRESSION AND PLAN: Coronary artery disease, status post coronary stent, diabetes, hypertension, hyperlipidemia, sleep apnea syndrome. I spoke at the bedside. All the question answered. Continue gastric prophylaxis, deep vein thrombosis prophylaxis, head at 45 degree. Fall precautions. Outpatient sleep study. Thank you and we will follow with you Prabhjot Ha MD
[2017-02-21] MEDS: Albuterol-Ipratrop 3 mg / 0.5 (3 ml) UD IH SCH ×4 (02:04→20:27)
[2017-02-21] MEDS: Pantoprazole 40 mg EC Tab PO SCH (05:16)
[2017-02-21] MEDS: Insulin Reg-LOW-Coverage SC SCH ×4 (07:46→23:11)
[2017-02-21] MEDS: Calcium-Vit D 250 mg-125 Units Tab UD PO SCH (10:16)
--- NOTE | 2017-02-21 14:45 | PN ---
DATE: 02/21/2017 SUBJECTIVE: The patient is in bed, in no acute distress, nontoxic. PHYSICAL EXAMINATION VITAL SIGNS: Temperature is 98, blood pressure is 125/50, respiratory rate of 20, heart rate of 96. HEENT: Unremarkable. NECK: Supple. LUNGS: Decreased breath sounds. HEART: Normal, S1 and S2. ABDOMEN: Soft. LABORATORY DATA: Reveals a white count of 7.4, hemoglobin of 9, platelets of 198. Chemistries reveals a creatinine of 0.9 and microbiology is noted. ASSESSMENT AND PLAN: This is an 86-year-old female with sepsis with left-sided pyelonephritis associated with Escherichia coli secondary to Escherichia coli in her urine, coronary artery disease status post PCI in diabetic, hypertensive, dyslipidemia currently on Cipro and today is day #11 with complete end of [address] Gomez's note is reviewed. We will follow closely with you. Pablito Salter MD
--- NOTE | 2017-02-21 14:45 | PN ---
CARDIOLOGY FOLLOWUP NOTE DATE: 02/21/2017 SUBJECTIVE: The patient worked with physical therapy well, has walked more than yesterday. PHYSICAL EXAMINATION: VITAL SIGNS: Blood pressure is 125/55 with heart rates in the 90's. NECK: Negative JVD. LUNGS: Without rales. HEART: S1 and S2. EXTREMITIES: Without edema. LABORATORY DATA: No laboratories were drawn today. IMPRESSION: 1. Stable angina. 2. Coronary artery disease. 3. History of percutaneous transluminal coronary angioplasty and stent. 4. Diabetes mellitus. 5. Hypercholesterolemia. ASSESSMENT AND PLAN: Given these findings, the patient is doing well in rehab and has regained much of her strength. From a cardiac perspective, the patient can be discharged. She needs to remain on Plavix for at least another 2 weeks. Kg Hull MD
[2017-02-21] MEDS: Insulin Detemir 100 units/ml Vial (Levemir) SC SCH (23:09)
[2017-02-22] MEDS: Albuterol-Ipratrop 3 mg / 0.5 (3 ml) UD IH SCH ×3 (00:03→07:31)
--- NOTE | 2017-02-22 05:23 | PN ---
DATE: 02/21/2017 PULMONARY PROGRESS NOTE: REFERRING PHYSICIAN: Dr. Gomez. SUBJECTIVE: The patient is lying on the bed, head at 45 degree. [employer] is at bedside. Day was unremarkable. Did well in therapy. No headache, no rhinitis. No nausea, no vomiting, no diarrhea. No leg pain or leg swelling. OBJECTIVE GENERAL: No acute distress. VITAL SIGNS: Temperature is 98, heart rate is 96, respiratory rate is 18, blood pressure 125/55. HEENT: Moist mucous membranes. ------. NECK: Supple. No JVD. LUNGS: Fair airflow with few rhonchi. HEART: S1, S2. ABDOMEN: Soft and nontender. No organomegaly. EXTREMITIES: There is no edema. NEUROLOGIC: Awake and alert. Follows simple commands. MEDICATIONS: She is on Cipro 500 mg twice a day, DuoNeb q. 6 hours, Ecotrin 81 mg daily, ferrous sulfate 325 mg daily, glipizide 5 mg before meals ------ , insulin coverage, Levemir 10 units subcutaneous at bedtime, Lipitor 40 mg daily, metoprolol tartrate 50 mg daily, vitamin D 2 tabs daily, Plavix 75 mg daily, Protonix 40 mg daily, Tylenol p.r.n., vitamin D 1000 international unit daily, and Zestril 5 mg daily. LABORATORY DATA: Shows blood sugar this morning 223. IMPRESSION AND PLAN: Coronary artery disease, status post coronary stent, diabetes, hypertension, hyperlipidemia, may have sleep apnea syndrome resolving sepsis. Continue antibiotics. Sleep apnea precautions. Fall precautions, gastric prophylaxis, deep vein thrombosis prophylaxis. Thank you and we will follow with you. Prabhjot Ha MD
[2017-02-22] MEDS: Pantoprazole 40 mg EC Tab PO SCH (06:17)
[2017-02-22] MEDS: Insulin Reg-LOW-Coverage SC SCH (06:51)
[2017-02-22 10:37] VITALS: BP 122/50; PULSE 94; RESP 14; TEMP 97.7; O2SAT 99
[2017-02-22] MEDS: Calcium-Vit D 250 mg-125 Units Tab UD PO SCH (11:02)
--- NOTE | 2017-02-22 15:21 | PN ---
DATE: 02/22/2017 PULMONARY PROGRESS NOTE REFERRING PHYSICIAN: Dr. Gomez. SUBJECTIVE: The patient is lying in the bed. is at bedside. Night was unremarkable. Doing well in therapy. No nausea, no vomiting, no diarrhea. No leg pain or leg swelling. OBJECTIVE GENERAL: No acute distress. VITAL SIGNS: Temperature is 98, heart rate is 94, respiratory rate is 20, blood pressure 122/50. HEENT: Moist mucous membranes. Crowded airway. Mallampati score is 4. NECK: Supple. No JVD. LUNGS: Fair airflow with few rhonchi. HEART: S1, S2. ABDOMEN: Soft and nontender. No organomegaly. EXTREMITIES: There is no edema. NEUROLOGIC: Awake and alert. Follows simple commands. MEDICATIONS: She is on Cipro 500 mg twice a day, DuoNeb q. 6 hour, Ecotrin 81 mg daily, ferrous sulphate 325 mg daily, glipizide 5 mg before meals twice a day, insulin coverage, Levemir 10 units subcutaneous at bedtime, Lipitor 40 mg daily, metoprolol tartrate 50 mg daily, Plavix 75 mg daily, Protonix 40 mg daily, Tylenol p.r.n. basis, vitamin D 1000 international unit daily, Zestril 5 mg daily. LABORATORY DATA: Shows blood sugar this morning 232. IMPRESSION AND PLAN: Coronary artery disease, status post coronary stent, hypertension, diabetes and hyperlipidemia. I had long discussion with her and , which he just told me that the patient does have a sleep apnea syndrome, diagnosed about 3 years ago at [facility]. Could not use CPAP and BiPAP, does not know if CPAP works. She will be discharged home today. I will suggest scheduling her outpatient CPAP titration with a nasal pillow mask. The patient and expressed understanding and willing go through the test and try CPAP with a nasal pillow mask and will purse with it and inform sleep center to make arrangement. Thank you. We will follow with you. Prabhjot Ha MD
--- NOTE | 2017-02-23 00:33 | PN ---
SUBJECTIVE: The patient is in bed, in no acute distress early this morning in room 322, nontoxic. PHYSICAL EXAMINATION VITAL SIGNS: Temperature is 97, blood pressure is 120/50, respiratory rate 16. HEENT: Unremarkable. NECK: Supple. LUNGS: Decreased breath sounds. HEART: Normal S1 and S2. ABDOMEN: Soft, nontender. LABORATORY DATA: Reveals a white count of 7.4, hemoglobin of 9, platelets of 198. ASSESSMENT AND PLAN: The patient is an 86-year-old female with sepsis with left-sided pyelonephritis secondary to Escherichia coli in the urine, coronary artery disease, PCI, diabetes, hypertension, dyslipidemia on p.o. Cipro and complete therapy with 10 to 14 days. Pablito Salter MD
--- NOTE | 2017-02-23 08:07 | PN ---
DATE: 02/21/2017 SUBJECTIVE: The patient was seen and examined at the bedside on 02/21/2017, sitting on the chair. No nausea, vomiting, or diarrhea. No hematuria or hematochezia. No swelling of the leg. No chest pain. No palpitations. No headache. No dizziness. Feeling better. PHYSICAL EXAMINATION: VITAL SIGNS: Temperature 98.1, heart rate 96, respiratory rate 20, blood pressure 120/50. HEENT: Normocephalic, atraumatic. Eyes, PERRLA. Extraocular muscles intact. Conjunctivae clear. Nose is patent. Mucous membranes moist. NECK: Supple. No carotid bruits, CHEST: Bilaterally symmetrical. HEART: S1 and S2 positive. LUNGS: Clear to auscultation. ABDOMEN: Soft. Bowel sounds positive. No organomegaly. EXTREMITIES: No edema. No cyanosis. NEUROLOGIC: The patient is awake and alert. Moving all four extremities. No focal deficit. MEDICATIONS: Cipro, DuoNeb, Ecotrin, glipizide, insulin coverage, Levemir, metoprolol, Protonix, Plavix. LABS: We do not have recent laboratory, but reviewed old labs. Blood sugar is 223. ASSESSMENT AND PLAN: The patient, 86-year-old female with multiple medical problems of coronary artery disease, urinary tract infection, got antibiotics, status post coronary artery stent, diabetes mellitus, hypertension, hypercholesterolemia, sleep apnea syndrome, obesity. Gastric prophylaxis and deep venous thrombosis prophylaxis, fall precautions, getting physical therapy. We will follow up. Margaret Gomez MD MTDD
== END 2017-02-22 17:09 | disposition home or self-care (01) | DRG 945 ==
LOC: TRCU 18:17
PROVIDERS: ADMIT Internal Medicine; ATTEND Internal Medicine
PROC: F07Z9FZ Gait Training/Functional Ambulation Treatment using Assistive, Adaptive, Supportive or Protective Equipment (ICD-10-PCS; principal; 2017-02-17)
PROC: F07Z5FZ Bed Mobility Treatment using Assistive, Adaptive, Supportive or Protective Equipment (ICD-10-PCS; 2017-02-17)
PROC: F07Z8FZ Transfer Training Treatment using Assistive, Adaptive, Supportive or Protective Equipment (ICD-10-PCS; 2017-02-17)
PROC: F08Z2FZ Grooming/Personal Hygiene Treatment using Assistive, Adaptive, Supportive or Protective Equipment (ICD-10-PCS; 2017-02-17)
PROC: F08Z1FZ Dressing Techniques Treatment using Assistive, Adaptive, Supportive or Protective Equipment (ICD-10-PCS; 2017-02-17)
PROC: F07L6ZZ Therapeutic Exercise Treatment of Musculoskeletal System - Lower Back / Lower Extremity (ICD-10-PCS; 2017-02-19)
DX: R53.1 Weakness (principal); A41.51 Sepsis due to Escherichia coli [E. coli]; N12 Tubulo-interstitial nephritis, not specified as acute or chronic; I21.4 Non-ST elevation (NSTEMI) myocardial infarction; I11.0 Hypertensive heart disease with heart failure; I50.9 Heart failure, unspecified; F03.90 Unspecified dementia, unspecified severity, without behavioral disturbance, psychotic disturbance, mood disturbance, and anxiety; D64.9 Anemia, unspecified; E10.9 Type 1 diabetes mellitus without complications; R53.83 Other fatigue; J44.9 Chronic obstructive pulmonary disease, unspecified; E86.0 Dehydration; I25.118 Atherosclerotic heart disease of native coronary artery with other forms of angina pectoris; M19.90 Unspecified osteoarthritis, unspecified site; E78.5 Hyperlipidemia, unspecified; E78.00 Pure hypercholesterolemia, unspecified; E66.9 Obesity, unspecified; G47.33 Obstructive sleep apnea (adult) (pediatric); Z79.4 Long term (current) use of insulin; Z95.5 Presence of coronary angioplasty implant and graft

== ENCOUNTER 2017-03-12 14:21 | Inpatient (IN) | payer MEDICARE ==
[2017-03-12] MEDS ORDERED: Morphine 2 mg/ml ISec IVP STA (14:40)
--- NOTE | 2017-03-12 14:45 | ED PDOC ---
Arrival/HPI - General Chief Complaint: Hip Pain Time Seen by Provider: 03/12/17 14:30 Historian: Patient - History of Present Illness Narrative History of Present Illness (Text): 03/12/17 14:42 86 y/o female, pmh including htn/hyperlipidemia/dm/cad/copd/chf, nkda, biba with the and son, c/o lt. hip pain x 2 days with no fall or trauma along with feeling fatigue. Pt. was recently discharged from the hospital, been walking on the walker excessively, started to have lt. hip pain which she can not stand up, not relief with the percocet or tylenol at home, more painful today, called the ambulance, no fever or chills, no skin discoloration, no rash , no other medical or psychological complaints. Past Medical History - Provider Review Nursing Documentation Reviewed: Yes - Infectious Disease Hx of Infectious Diseases: None - Cardiac Hx Cardiac Disorders: Yes Hx Hypertension: Yes - Pulmonary Hx Respiratory Disorders: No - Neurological Hx Alzheimer's Disease: Yes HX Cerebrovascular Accident: Yes - HEENT Hx Cataracts: Yes - Renal Hx Renal Disorder: No - Endocrine/Metabolic Hx Diabetes Mellitus Type 2: Yes - Hematological/Oncological Hx Blood Transfusions: No Hx Blood Transfusion Reaction: No - Integumentary Hx Dermatological Disorder: No - Musculoskeletal/Rheumatological Hx Falls: Yes - Gastrointestinal Hx Gastrointestinal Disorders: Yes (CONSTIPATION,GI BLEED) - Genitourinary/Gynecological Hx Reproductive Disorders: No - Psychiatric Hx Anxiety: Yes Hx Depression: Yes Hx Substance Use: No - Surgical History Hx Cardiac Catheterization: Yes Hx Coronary Stent: Yes (x4) Hx Orthopedic Surgery: Yes - Anesthesia Hx Anesthesia: Yes Hx Anesthesia Reactions: No Hx Malignant Hyperthermia: No - Suicidal Assessment Feels Threatened In Home Enviroment: No Family/Social History - Physician Review Nursing Documentation Reviewed: Yes Family/Social History: Unknown Family HX Smoking Status: Never Smoked Hx Alcohol Use: Yes (social) Frequency of alcohol use: Socially Hx Substance Use: No Allergies/Home Meds Allergies/Adverse Reactions: Allergies No Known Allergies Allergy (Verified 03/14/17 20:42) Home Medications: Home Meds Medication Instructions Recorded Confirmed Aspirin [Adult Low Dose Aspirin EC] 81 mg PO DAILY 02/10/17 03/14/17 Atorvastatin [Lipitor] 10 mg PO DAILY 02/10/17 03/14/17 Calcium Carbonate/Vitamin D3 2 tab PO DAILY 02/10/17 03/14/17 [Calcium 600-Vit D3 500 Softgel] Enalapril Maleate [Vasotec] 10 mg PO DAILY 02/10/17 03/14/17 Ferrous Sulfate [Feosol] 325 mg PO DAILY 02/10/17 03/14/17 Glipizide [Glipizide Xl] 5 mg PO BID 02/10/17 03/14/17 Insulin Glargine, Recombina 15 unit SC HS 02/10/17 03/14/17 [Lantus] Insulin Human Regular [HumuLIN R] 4 units SC BRK PRN 02/10/17 03/14/17 Insulin Human Regular [HumuLIN R] 6 units SC BID PRN 02/10/17 03/14/17 Metoprolol Succinate [Toprol XL] 50 mg PO BID 02/10/17 03/14/17 Pantoprazole [Protonix EC Tab] 40 mg PO BID 02/10/17 03/14/17 Lisinopril [Zestril] 5 mg PO DAILY 03/12/17 03/14/17 Oxycodone HCl/Acetaminophen 1 tape PO Q12 PRN 03/12/17 03/14/17 [Endocet 10-325 mg Tablet] Review of Systems - Review of Systems Constitutional: absent: Fatigue, Fevers Eyes: absent: Vision Changes ENT: absent: Hearing Changes Respiratory: absent: SOB, Cough Cardiovascular: absent: Chest Pain Gastrointestinal: absent: Abdominal Pain, Nausea, Vomiting Musculoskeletal: Arthralgias, Myalgias. absent: Back Pain, Neck Pain, Joint Swelling Skin: absent: Rash, Pruritis, Skin Lesions Neurological: absent: Headache, Dizziness, Focal Weakness Physical Exam Vital Signs Reviewed: Yes Vital Signs Temp Pulse Resp BP Pulse Ox 03/12/17 18:32 16 143/63 98 03/12/17 17:17 65 16 142/61 99 03/12/17 14:33 97.6 F 69 18 146/65 99 Temperature: Afebrile Blood Pressure: Normal Pulse: Regular Respiratory Rate: Normal Appearance: Positive for: Well-Appearing, Non-Toxic, Uncomfortable Pain Distress: Severe Mental Status: Positive for: Alert and Oriented X 3 - Systems Exam Head: Present: Atraumatic, Normocephalic Pupils: Present: PERRL Extroacular Muscles: Present: EOMI Conjunctiva: Present: Normal Mouth: Present: Moist Mucous Membranes Neck: Present: Normal Range of Motion Respiratory/Chest: Present: Clear to Auscultation, Good Air Exchange. No: Respiratory Distress, Accessory Muscle Use Cardiovascular: Present: Regular Rate and Rhythm, Normal S1, S2. No: Murmurs Abdomen: Present: Normal Bowel Sounds. No: Tenderness, Distention, Peritoneal Signs Back: Present: Normal Inspection Upper Extremity: Present: Normal Inspection. No: Cyanosis, Edema Lower Extremity: Present: Normal Inspection, Other (Lt. hip: +ttp on the anterior and lateral aspect of the hip, painful to lateral movement against resistant, less pain with passive movement, no skin discoloration, FROM without limitation, sensation intact, motor 5/5, +DPPT pulses, capillary refill< 2 seconds, neurovascular intact. ). No: Edema Neurological: Present: GCS=15, Speech Normal, Motor Func Grossly Intact, Memory Normal Skin: Present: Warm, Dry, Normal Color. No: Rashes Psychiatric: Present: Alert, Oriented x 3, Normal Insight, Normal Concentration Medical Decision Making ED Course and Treatment: 03/12/17 14:46 -Labs -cxr/Lt. hip CT/LLE venuous doppler -IV morphine 2mg -Observe and reassess 03/12/17 16:48 -EKG: -Chest xray: no acute findings -CT lt. hip: show degenerative changes with no acute findings -LLE venuous doppler show: LLE Venuous Doppler: as per preliminary report, no acute DVT -Labs are non-significant except: Hgb 10.7 from 9.4, BUN 36, BNP 512 from normal upper limit. -Pt. is unable to get up or walk, gait unstable and will likely to fall, pain not control, will need observation in the hospital with orthopedic consult. -Paging Dr. Gomez for observation admission. 03/12/17 17:18 -I spoke to DR. Gomez which she come to the ER and evaluate the patient, discussed about the labs/radiology results, agreed on keep the patient observation status with orthopedic Rafael Gonzalez for routine consult. Dr. Gomez also request IVF NS @ 75cc/hr which I ordered as well. -Pt. is fall risk. -I discussed with DR. Oconnell and he will put in the observation order. - Lab Interpretations Lab Results: 03/12/17 15:10 03/12/17 15:10 Lab Results 03/13/17 22:13: POC Glucose (mg/dL) 144 H 03/13/17 16:11: POC Glucose (mg/dL) 127 H 03/13/17 11:21: POC Glucose (mg/dL) 222 H 03/13/17 07:37: POC Glucose (mg/dL) 115 H 03/12/17 20:52: POC Glucose (mg/dL) 107 03/12/17 15:10: Sodium 142, Potassium 4.8, Chloride 105, Carbon Dioxide 27, Anion Gap 15, BUN 36 H, Creatinine 1.0, Est GFR ( Amer) > 60, Est GFR ( Non-Af Amer) 53, Random Glucose 73, Calcium 9.2, Total Bilirubin 0.3, AST 32, ALT 30, Alkaline Phosphatase 90, Total Creatine Kinase 30 L, NT-Pro-B Natriuret Pep 512 H, Total Protein 7.0, Albumin 4.1, Globulin 2.9, Albumin/Globulin Ratio 1.4 03/12/17 15:10: WBC 5.5 D, RBC 3.29 L, Hgb 10.7 L, Hct 32.6 L, MCV 99.1, MCH 32.5, MCHC 32.8, RDW 16.5 H, Plt Count 156, MPV 10.9, Gran % 56.6, Lymph % (Auto ) 29.3, Hardeman % (Auto) 9.6 H, Eos % (Auto) 4.5, Baso % (Auto) 0.0, Gran # 3.12, Lymph # 1.6, Hardeman # 0.5, Eos # 0.3, Baso # 0.00 I have reviewed the lab results: Yes Interpretation: Abnormal lab values (Hgb 10.7 from 9.4, BUN 36, BNP 512 from normal upper limit.) - RAD Interpretation Radiology Orders: 03/12/17 14:40 HIP WITHOUT CONTRAST LEFT [CT] Stat CHEST PORTABLE [RAD] Stat DUPLEX LOWER EXTRM VEIN LEFT [US] Stat 03/13/17 07:45 LUMBAR SPINE W/O CONTRAST [CT] Routine 03/13/17 07:46 PELVIS W/OBLIQUES (3VWS) [RAD] Routine CT Lt. hip: PROCEDURE: CT left hip HISTORY: Lt. hip pain, painful to walk and stand. No recent history of trauma. COMPARISON: 02/11/2017 CT abdomen and pelvis for comparison purposes. TECHNIQUE: 2.5 mm axial acquisition and display. Coronal and sagittal reconstructions. Dose report (mGy-cm): 726.23 FINDINGS: There are no osseous abnormalities to suggest fracture. The pelvic ring is intact. Preserved femoral-acetabular relationship. Negative study for protrusio , subluxation or dislocation. Degenerative changes: Mild degenerative changes left hip. No lytic or blastic abnormalities identified. Multilevel degenerative changes incompletely visualized lower lumbar spine. IMPRESSION: No acute findings related to/accounting for the clinical presentation. Mild degenerative changes left hip without evidence of subluxation, dislocation or protrusio. 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 Development Manager: Radiologist - Medication Orders Current Medication Orders: Discontinued Medications Acetaminophen (Tylenol 325mg Tab) 650 mg PO Q6H PRN PRN Reason: Fever >100.4 F Aspirin (Ecotrin) 81 mg PO DAILY [facility] Last Admin: 03/14/17 10:21 Dose: 81 mg Atorvastatin Calcium (Lipitor) 10 mg PO DAILY [facility] Last Admin: 03/14/17 10:21 Dose: 10 mg Bupivacaine HCl (Marcaine 0.5%) 5 ml IJ ONCE ONE Stop: 03/13/17 08:17 Clopidogrel Bisulfate (Plavix) 75 mg PO DAILY [facility] Last Admin: 03/14/17 10:21 Dose: 75 mg Ferrous Sulfate (Feosol) 324 mg PO DAILY [facility] Last Admin: 03/14/17 10:21 Dose: 324 mg Glipizide (Glucotrol Xl) 5 mg PO BID [facility] Last Admin: 03/14/17 17:58 Dose: 5 mg Sodium Chloride (Sodium Chloride 0.9%) 1,000 mls @ 75 mls/hr IV .[id number] [facility] Last Admin: 03/14/17 10:22 Dose: 75 mls/hr Insulin Detemir (Levemir) 7 unit SC QAM [facility] Last Admin: 03/14/17 10:22 Dose: 7 unit Insulin Detemir (Levemir) 8 unit SC HS [facility] Last Admin: 03/13/17 22:17 Dose: 8 unit Insulin Human Regular (Humulin R Med) 4 units SC BRK PRN; Protocol PRN Reason: .HYPERGLYCEMIA Insulin Human Regular (Humulin R Med) 6 units SC BID PRN; Protocol PRN Reason: .HYPERGLYCEMIA Insulin Human Regular (Humulin R Med) 4 units SC BRK PRN; Protocol PRN Reason: .HYPERGLYCEMIA Insulin Human Regular (Humulin R Med) 6 units SC BID PRN; Protocol PRN Reason: .HYPERGLYCEMIA Insulin Human Regular (Humulin R Med) 0 units SC ACHS [facility] Last Admin: 03/14/17 15:59 Dose: 1 units Lisinopril (Zestril) 5 mg PO DAILY [facility] Last Admin: 03/13/17 09:33 Dose: 5 mg Lisinopril (Zestril) 10 mg PO DAILY [facility] Last Admin: 03/14/17 10:21 Dose: 10 mg Methylprednisolone Acetate (Depo-Medrol) 80 mg IM ONCE ONE Stop: 03/13/17 08:17 Metoprolol Succinate (Toprol Xl) 50 mg PO BID [facility] Last Admin: 03/14/17 17:57 Dose: 50 mg Morphine Sulfate (Morphine) 2 mg IVP STAT STA Stop: 03/12/17 14:41 Last Admin: 03/12/17 16:15 Dose: 2 mg Re-Assess: BUSTER Pain Assessment Document 03/12/17 20:15 (Rec: 03/13/17 05:27 [id number]) Pain Reassessment Is this a pain reassessment? Yes Sleep Is patient sleeping during reassessment? Yes Calcium Carbonate/Vitamin D3 [Calcium 600-Vit D3 500 Softgel] (Home Med) 2 tab PO DAILY [facility] Last Admin: 03/14/17 15:43 Dose: Oxycodone/Acetaminophen (Percocet 10/325 Mg Tab) 1 tab PO Q12 PRN PRN Reason: Pain, moderate (4-7) Last Admin: 03/14/17 10:13 Dose: 1 tab Re-Assess: BUSTER Pain Assessment Document 03/14/17 11:13 TAV (Rec: 03/14/17 15:46 TAV [id number]) Pain Reassessment Is this a pain reassessment? Yes Presence of Pain Presence of Pain No Pain Scale Used Pain Scale Used Numeric Description Intensity of Pain at present 3 Pantoprazole Sodium (Protonix Ec Tab) 40 mg PO BID [facility] Last Admin: 03/14/17 17:58 Dose: 40 mg Sertraline HCl (Zoloft) 50 mg PO HS [facility] Last Admin: 03/13/17 22:08 Dose: 50 mg Zolpidem Tartrate (Ambien) 5 mg PO ONCE ONE PRN Reason: Protocol Stop: 03/13/17 21:37 Last Admin: 03/13/17 22:08 Dose: 5 mg - PA / BATTERY RECHARGER / Resident Statement / has reviewed & agrees with the documentation as recorded. Disposition/Present on Arrival - Present on Arrival Any Indicators Present on Arrival: No History of DVT/PE: No History of Uncontrolled Diabetes: No Urinary Catheter: No History of Decub. Ulcer: No History Surgical Site Infection Following: None - Disposition Have Diagnosis and Disposition been Completed?: Yes Diagnosis: Dehydration, Hip pain, Fatigue Disposition: HOSPITALIZED Disposition Time: 16:50 Patient Plan: Admission, Observation Condition: STABLE
[2017-03-12 15:29] LABS: ALB/GLOB RATIO 1.4 (1.1-1.8); ALBUMIN 4.1 g/dL (3.0-4.8); ALT/SGPT 30 U/L (7-56); AST/SGOT 32 U/L (15-39); BLOOD UREA NITROGEN 36 mg/dL (7-21); CALCIUM 9.2 mg/dL (8.4-10.5); GFR AFRICAN-AMERICAN > 60; GFR NON-AFRICAN AMERICAN 53
[2017-03-12 15:34] LABS: EOS # 0.3 (0.0-0.7); EOS % 4.5 % (1.5-5.0); GRAN # 3.12 (1.4-6.5); GRAN % 56.6 % (50.0-68.0); HEMOGLOBIN 10.7 g/dL (12.0-16.0); LYMPH # 1.6 (1.2-3.4); LYMPH % 29.3 % (22.0-35.0); MEAN CELL VOLUME 99.1 fl (80.0-105.0); MEAN CORPUSCULAR HEMOGLOBIN 32.5 pg (25.0-35.0); MEAN CORPUSCULAR HGB CONC 32.8 g/dl (31.0-37.0); MEAN PLATELET VOLUME 10.9 fl (7.0-11.0); MONO # 0.5 (0.1-0.6); MONO % 9.6 % (1.0-6.0); PLATELET COUNT 156 10^3/uL (120.0-450.0); RBC 3.29 10^6/uL (3.5-6.1); RED CELL DISTRIBUTION WIDTH 16.5 % (11.5-14.5); WHITE BLOOD COUNT 5.5 10^3/ul (4.5-11.0)
[2017-03-12 15:38] LABS: B-TYPE NATRIURETIC PEPTIDE 512 pg/mL (0-450)
--- NOTE | 2017-03-12 16:10 | RAD ---
HISTORY: medical clearance COMPARISON: No prior. FINDINGS: LUNGS: No active pulmonary disease. PLEURA: No significant pleural effusion identified, no pneumothorax apparent. CARDIOVASCULAR: No radiographic findings to suggest acute or significant cardiovascular disease. OSSEOUS STRUCTURES: No significant abnormalities. VISUALIZED UPPER ABDOMEN: Normal. OTHER FINDINGS: None. IMPRESSION: No active disease.
--- NOTE | 2017-03-12 16:21 | CT ---
PROCEDURE: CT left hip HISTORY: Lt. hip pain, painful to walk and stand. No recent history of trauma. COMPARISON: 02/11/2017 CT abdomen and pelvis for comparison purposes. TECHNIQUE: 2.5 mm axial acquisition and display. Coronal and sagittal reconstructions. Dose report (mGy-cm): 726.23 FINDINGS: There are no osseous abnormalities to suggest fracture. The pelvic ring is intact. Preserved femoral-acetabular relationship. Negative study for protrusio, subluxation or dislocation. Degenerative changes: Mild degenerative changes left hip. No lytic or blastic abnormalities identified. Multilevel degenerative changes incompletely visualized lower lumbar spine. IMPRESSION: No acute findings related to/accounting for the clinical presentation. Mild degenerative changes left hip without evidence of subluxation, dislocation or protrusio.
[2017-03-12] MEDS: Sodium Chloride 0.9% 1,000 ML IV SCH (18:07)
[2017-03-12 19:33] VITALS: BMI 34.7
[2017-03-12] MEDS ORDERED: Oxycodone/Acetaminophen 10/325 mg Tab PO PRN (20:45)
[2017-03-12] MEDS ORDERED: Insulin Reg-MEDIUM-Coverage SC PRN ×4 (20:45→21:56)
[2017-03-12] MEDS: Insulin Detemir 100 units/ml Vial (Levemir) SC SCH (22:18)
[2017-03-13] MEDS ORDERED: Bupivacaine 0.5% Inj(30mL) IJ ONE (08:16)
[2017-03-13] MEDS ORDERED: MethylPREDNISolone Depo 40 mg/ml Inj IM ONE (08:16)
--- NOTE | 2017-03-13 08:27 | US ---
PROCEDURE: Left lower extremity venous US HISTORY: Leg pain and swelling. Evaluate for DVT. PHYSICIAN(S): Kg Rios MD. TECHNIQUE: Duplex sonography and color-flow Doppler with graded compression were used to evaluate the deep venous system of the left lower extremity. The exam is somewhat limited by edema. FINDINGS: The visualized deep venous system of the left lower extremity is sonographically normal and compressible. Normal wave forms and augmentation are seen. There is no sonographic evidence for deep venous thrombosis in the visualized segments of the left lower extremity. IMPRESSION: 1. No sonographic evidence for deep venous thrombosis in the visualized segments of the left lower extremity.
--- NOTE | 2017-03-13 08:59 | RAD ---
PROCEDURE: Radiographs of the pelvis. HISTORY: paon COMPARISON: None. FINDINGS: BONES: Pelvic Bones: Unremarkable. Hips: Grossly unremarkable. JOINTS: Sacroiliac Joints: Unremarkable. Pubic Symphysis: Unremarkable. OTHER FINDINGS: None. IMPRESSION: Unremarkable radiographs of the pelvis.
[2017-03-13] MEDS: Pantoprazole 40 mg EC Tab PO SCH ×2 (09:32→17:57)
[2017-03-13] MEDS: Metoprolol Succinate 50 mg XL Tab PO SCH ×2 (09:34→17:57)
[2017-03-13] MEDS: Insulin Detemir 100 units/ml Vial (Levemir) SC SCH ×2 (09:34→22:17)
[2017-03-13] MEDS: GlipiZIDE 5 mg SR Tab PO SCH ×2 (09:53→17:57)
--- NOTE | 2017-03-13 12:29 | HP ---
CHIEF COMPLAINT: Hip pain. HISTORY OF PRESENT ILLNESS: Ms. Rosemary Power is an 86-year-old lady with past medical history of multiple problems; hypertension, hypercholesterolemia, diabetes mellitus, coronary artery disease, COPD, congestive heart failure. Lives with her and son. Complaining of left hip pain since 2 days with no fall or trauma as per family along with severe fatigue and tired. The patient's son, and daughter were sitting on the bedside and they gave witness that the patient has no fall. The patient was discharged from the house because recently , starting a physical therapy, walking with a walker. The patient is getting Tylenol and Percocet at home but this is not helping. As they called the ambulance, they came over here. No nausea, vomiting, or diarrhea. X-ray of the chest done. Extremity ultrasound and had a hip CAT scan reviewed by me. PAST MEDICAL HISTORY: History of hypertension, hypercholesterolemia, diabetes melitis, coronary artery disease, COPD, congenitive heart failure, history of multiple falls, history of CVA, cataract, diabetes melitis type 2 not very well control, constipation, GI bleeding, coronary artery disease, and orthopedic surgery. FAMILY HISTORY: Father and mother noncontributory. HABITS: Smoking, he never smoked. No alcohol socially. No substance abuse. ALLERGIES: THE PATIENT IS NOT ALLERGIC WITH ANY MEDICATION. HOME MEDICATIONS: Aspirin, Lipitor, calcium, enalapril, Feosol, glipizide, Lantus insulin, metoprolol, Protonix, Zestril. REVIEW OF SYSTEMS: The patient is examined on the bedside in the emergency room. , son and daughter are standing on the bedside. No nausea, vomiting, or diarrhea. No hematuria or hematochezia. No swelling of the leg. No chest pain. No palpitation. No headache. No dizziness. PHYSICAL EXAMINATION: VITAL SIGNS: Temperature 97.6, pulse 59, respiratory rate 18, blood pressure 140/65, pulse oximetry 99%. HEENT: Head is normocephalic and atraumatic. Eyes; PERRLA. Extraocular muscles intact. Conjunctivae clear. Nose is patent. Mucus membrane moist. NECK: Supple. No carotid bruits, JVD, or thyromegaly. CHEST: Bilaterally symmetrical. HEART: S1 and S2 positive. LUNGS: Clear to auscultation. ABDOMEN: Soft. Bowel sounds positive. No organomegaly. EXTREMITIES: No edema. No cyanosis. NEUROLOGIC: The patient is awake and alert. Moving all 4 extremities. LABORATORY DATA: White blood cells 9.5, hemoglobin 10.7, hematocrit 32.6, platelets 156. Sodium 142, potassium 4.8, BUN 36, creatinine 1.0. ASSESSMENT AND PLAN: Mrs. Rosemary Power is an 86-year-old lady with anemia, increased BUN, mildly slightly dehydrated. ER gave IV fluids. We will continue that. Hip scan done. No acute findings related to or accounting for clinical presentation, mild degenerative changes of left hip without evidence of subluxation, dislocation or protrusion. Restarted home medications. Orthopedic consult called to talk about the patient's fatigue and hip pain. GI and DVT prophylaxis and repeat labs and we will follow up. Margaret Gomez MD MTDMiguel A
--- NOTE | 2017-03-13 12:55 | CT ---
PROCEDURE: CT Lumbar Spine without contrast HISTORY: pain COMPARISON: None. TECHNIQUE: Axial computed tomography images were obtained of the lumbar spine without the use of intravenous contrast. Coronal and sagittal reformatted images were created and reviewed. Radiation dose: Total exam DLP = 644 mGy-cm. This CT exam was performed using one or more of the following dose reduction techniques: Automated exposure control, adjustment of the mA and/or kV according to patient size, and/or use of iterative reconstruction technique. FINDINGS: VERTEBRAE: Unremarkable. No fracture. Normal alignment. DISCS/SPINAL CANAL/NEURAL FORAMINA: L1-2: Disc degeneration with vacuum disc. There is a right paracentral disc herniation extruded inferiorly. This also contains air. Axial image 23 series 4. Sagittal image 25 L2-3: Disc bulge. Calcification of the annulus posteriorly. Moderate facet arthropathy. Moderate stenosis L3-4: Moderate disc bulge L4-5: Moderate to severe disc bulge. Vacuum disc. Left paracentral disc herniation extruded inferiorly. This contains air. Moderate facet arthropathy L5-S1: Disc bulge. Severe facet arthropathy PARASPINAL SOFT TISSUES: Unremarkable. OTHER FINDINGS: None. IMPRESSION: Multilevel disc degeneration. See comments
--- NOTE | 2017-03-13 13:21 | CARD ---
APPROVED REPORT EKG Measurement Heart [id number] <Conclusion> Normal sinus rhythm Low voltage QRS Cannot rule out Anterior infarct, age undetermined Abnormal ECG
[2017-03-13] MEDS: Sodium Chloride 0.9% 1,000 ML IV SCH (15:21)
--- NOTE | 2017-03-13 19:52 | CON ---
DATE: 03/13/2017 LOCATION: Room 568, bed 1. HISTORY OF PRESENT ILLNESS: The patient has complained of left hip pain, has point tenderness to palpation. There has past history of weakness of the lower extremities. Hip x-rays were within normal limits and the CAT scan and had an MRI in November, which was within normal limits, but her pain still present in the left hip around the greater trochanter which she says radiates to her lower leg on the left side. This could be sciatica. So, I am going to go ahead and order a recent CAT scan of the lumbar spine and new x-ray of her pelvis and see if she has any peritrochanteric calcifications to cause her tenderness over the greater trochanter and if so, I will inject her hip with Depo-Medrol and Marcaine, and she could be having a neurologic claudication as opposed to weakness from age, and she may need a Vascular consult to check on her peripheral circulation. I will follow her orthopedically for her left hip pain, which may need a Depo-Medrol injection into the left hip bursitis, which I will probably do when she comes back from x-ray and to make sure she does not have sciatica or any other spine problems. Rafael Gaona DO
[2017-03-13] MEDS: VITAMIN D3 PO SCH (20:42)
[2017-03-13] MEDS: CALCIUM CARBONATE PO SCH (20:42)
[2017-03-13] MEDS: Insulin Reg-MEDIUM-Coverage SC SCH ×2 (20:42→22:19)
--- NOTE | 2017-03-14 03:51 | PN ---
DATE: 03/13/2017 SUBJECTIVE: The patient is an 86-year-old female. The patient was seen and examined on 03/13/2017. No nausea, vomiting, or diarrhea. No hematuria or hematochezia. No swelling of the legs. No chest pain, no palpitation. Still having pain in the left hip radiating towards the leg, looks like sciatica. PHYSICAL EXAMINATION: VITAL SIGNS: Temperature 98.2, pulse 77, blood pressure 125/63, and respiratory rate 20. HEENT: Head, normocephalic and atraumatic. Eyes, PERRLA. Extraocular muscles intact. Conjunctivae clear. Nose patent. Mucous membrane moist. NECK: Supple. No carotid bruits. No JVD or thyromegaly. CHEST: Bilaterally symmetrical. HEART: S1 and S2 positive. LUNGS: Clear to auscultation. ABDOMEN: Soft. Bowel sounds present. No organomegaly. EXTREMITIES: No edema, no cyanosis. NEUROLOGICAL: The patient is awake and alert. Moving all 4 extremities. No focal deficit. MEDICATIONS: Ecotrin, ferrous sulfate, glipizide, insulin, Levemir, atorvastatin, Percocet, Plavix, Protonix, Tylenol, Zestril, Zoloft. LABORATORY DATA: White blood cell 5.5, hemoglobin 10.7, hematocrit 32.6, platelets 156. Sodium 142, potassium 4.8, BUN 36, calcium 1.0, glucose 115, 222. and total proBNP 512. ASSESSMENT AND PLAN: The patient is an 86-year-old lady with anemia, dehydration, diabetes mellitus, abnormal liver function test, came with left hip pain, seen by the orthopedics, Jimenez. He did CAT scan of the hip and x-ray of the back, which showed multilevel degeneration. The patient has multiple falls and still is at risk of fall. Can do her ADL. History of hypertension, hypercholesterolemia, diabetes mellitus, coronary artery disease, chronic obstructive pulmonary disease, congestive heart failure, history of cerebrovascular accident, cataract, rhabdomyolysis, history of upper GI, coronary artery disease, orthopedic surgery. Repeat labs. We will follow up. Margaret Gomez MD [facility] # [id number] MTDMiguel A
[2017-03-14] MEDS: Sodium Chloride 0.9% 1,000 ML IV SCH ×2 (05:34→10:22)
[2017-03-14 08:08] VITALS: RESP 18; TEMP 97.9
[2017-03-14] MEDS: Insulin Reg-MEDIUM-Coverage SC SCH ×3 (08:20→15:59)
[2017-03-14] MEDS: Metoprolol Succinate 50 mg XL Tab PO SCH ×2 (10:21→17:57)
[2017-03-14] MEDS: Pantoprazole 40 mg EC Tab PO SCH ×2 (10:21→17:58)
[2017-03-14] MEDS: GlipiZIDE 5 mg SR Tab PO SCH ×2 (10:21→17:58)
[2017-03-14] MEDS: Insulin Detemir 100 units/ml Vial (Levemir) SC SCH (10:22)
[2017-03-14] MEDS: CALCIUM CARBONATE PO SCH (15:43)
[2017-03-14] MEDS: VITAMIN D3 PO SCH (15:43)
[2017-03-14 17:59] VITALS: BP 150/68; PULSE 68
[2017-03-14 18:14] VITALS: O2SAT 93
--- NOTE | 2017-03-15 02:46 | PROCN ---
An 86-year-old female was seen yesterday with pain in her left hip, which appeared to be like bursitis of the left hip but also could be mild sciatica. So x-rays were ordered of the hips and back. A lumbar spine did show mild osteoarthritis and degenerative disk disease of lumbar spine, especially L5-S1 and trochanteric bursitis of left, worse in the right hip. So since she still has pinpoint tenderness which are the trigger points at the left hip bursa which was lateral trochanter, we took the opportunity to inject her with Depo-Medrol and Marcaine, because yesterday she had too much pain for therapy. Also there is cortisone and Depo-Medrol and Marcaine shot helped her pain, so she could get up and do some therapy which I will ask therapist to come and see her now and ambulate with a walker. She does have a stairlift at home. FINAL DIAGNOSES: Left trochanteric bursitis and osteoarthritis lumbar spine, could have underlying sciatica. Depo-Medrol and Marcaine was for the left hip bursitis that was symptomatic to be injected, and hopefully, she could do little better in therapy with ambulation and walking with a walker. Rafael Gaona DO
== END 2017-03-14 19:38 | DRG 552 ==
LOC: ED 14:21 → ERH 17:20 → 5RNO 18:39 → OBSVTOIN 03-14 00:26
PROVIDERS: ADMIT Internal Medicine; ATTEND Internal Medicine
PROC: 3E0U33Z Introduction of Anti-inflammatory into Joints, Percutaneous Approach (ICD-10-PCS; principal; 2017-03-14)
PROC: 3E0U3BZ Introduction of Anesthetic Agent into Joints, Percutaneous Approach (ICD-10-PCS; 2017-03-14)
DX: M54.30 Sciatica, unspecified side (principal); M62.82 Rhabdomyolysis; I11.0 Hypertensive heart disease with heart failure; G30.9 Alzheimer's disease, unspecified; I50.9 Heart failure, unspecified; E11.9 Type 2 diabetes mellitus without complications; D64.9 Anemia, unspecified; F02.80 Dementia in other diseases classified elsewhere, unspecified severity, without behavioral disturbance, psychotic disturbance, mood disturbance, and anxiety; M70.62 Trochanteric bursitis, left hip; M70.61 Trochanteric bursitis, right hip; M47.9 Spondylosis, unspecified; M51.36 Other intervertebral disc degeneration, lumbar region; J44.9 Chronic obstructive pulmonary disease, unspecified; E78.5 Hyperlipidemia, unspecified; E86.0 Dehydration; E78.00 Pure hypercholesterolemia, unspecified; I25.10 Atherosclerotic heart disease of native coronary artery without angina pectoris; Z86.73 Personal history of transient ischemic attack (TIA), and cerebral infarction without residual deficits; R29.6 Repeated falls; Z79.82 Long term (current) use of aspirin; Z79.899 Other long term (current) drug therapy; Z95.5 Presence of coronary angioplasty implant and graft; H26.9 Unspecified cataract; K59.00 Constipation, unspecified; Z87.19 Personal history of other diseases of the digestive system; F32.89 Other specified depressive episodes; R40.2412 Glasgow coma scale score 13-15, at arrival to emergency department

== ENCOUNTER 2017-03-14 19:38 | Inpatient (IN) | payer OTHER, MEDICARE ==
[2017-03-14] MEDS ORDERED: Sodium Chloride 0.9% 1,000 ML IV SCH (22:05)
[2017-03-14] MEDS: Insulin Detemir 100 units/ml Vial (Levemir) SC SCH (23:23)
[2017-03-15] MEDS: Sodium Chloride 0.9% 1,000 ML IV SCH (01:20)
[2017-03-15 02:40] VITALS: BMI 31.7
[2017-03-15] MEDS ORDERED: Pneumococcal 23-Valent Vaccine IM ONE (02:40)
[2017-03-15] MEDS: Pantoprazole 40 mg EC Tab PO SCH ×2 (05:27→16:46)
[2017-03-15] MEDS: Insulin Reg-MEDIUM-Coverage SC SCH ×4 (06:40→21:49)
[2017-03-15] MEDS: Insulin Detemir 100 units/ml Vial (Levemir) SC SCH ×2 (06:56→21:50)
[2017-03-15] MEDS: Metoprolol Succinate 50 mg XL Tab PO SCH ×2 (07:00→17:55)
[2017-03-15] MEDS: GlipiZIDE 5 mg SR Tab PO SCH ×2 (08:00→17:55)
--- NOTE | 2017-03-15 19:39 | CON ---
DATE: 03/15/2017 HISTORY OF PRESENT ILLNESS: She is an 86-year-old female seen today on 03/15/2017. She had already been seen on the regular hospital floor section while she was in the room 568, bed 1, now she is in TCU which is at room 315, bed 1. I have injected her yesterday for trigger point injection of hip pain on the left hip with Depo-Medrol/Marcaine for it looked like a cohesive case of greater trochanteric bursitis with exquisite tenderness, so the x-ray showing no arthritis but it just show bursitis to greater trochanter, we injected with Depo-Medrol/Marcaine on 03/14/2017. She had initially came in to the hospital on 03/12/2017. The 24-hour postinjection of left hip says that she is a little better with less pain and hopefully she could do more therapy at TCU where she is expected to walk into strengthening exercises. I will follow while she is here. So, final diagnosis looks like cohesive case of greater trochanteric bursitis helped with the Depo-Medrol/Marcaine injection. We will continue physical therapy on the transitional care unit together strengthen security when she ambulates with the walker. FINAL DIAGNOSIS: Left hip bursitis. There is no need for surgery. Rafael Gaona DO
[2017-03-16] MEDS: Pantoprazole 40 mg EC Tab PO SCH ×2 (05:24→16:01)
[2017-03-16] MEDS: Insulin Reg-MEDIUM-Coverage SC SCH ×4 (06:49→22:35)
[2017-03-16] MEDS: Insulin Detemir 100 units/ml Vial (Levemir) SC SCH ×2 (06:50→22:36)
[2017-03-16] MEDS: GlipiZIDE 5 mg SR Tab PO SCH ×2 (08:27→17:37)
[2017-03-16] MEDS: Metoprolol Succinate 50 mg XL Tab PO SCH ×2 (08:28→17:38)
[2017-03-16] MEDS: Oxycodone/Acetaminophen 10/325 mg Tab PO PRN (12:01)
--- NOTE | 2017-03-16 15:15 | HP ---
CHIEF COMPLAINT: Weakness, hip pain, and falling. HISTORY OF PRESENT ILLNESS: The patient is an 86 years old lady, was admitted in [facility] for frequent falls, weakness, and hip pain. Has multiple medical problems of hypertension, hypercholesterolemia, diabetes mellitus, coronary artery disease, COPD, congestive heart failure. Lives with her . surgery was done from TCU. The patient was getting physical therapy at home, walking with a walker. Taking the Tylenol and Percocet for pain, started after getting pain in the left hip, brought to [facility] on 03/12/2017, admitted. Orthopedic consult called with Dr. Gaona. He saw the patient and the injection, pain is a little bit better. Now transferred the patient to [facility] for continuity of care for further physical therapy. PAST MEDICAL HISTORY: Hypertension, hypercholesterolemia, diabetes melitis, coronary artery disease, COPD, congenitive heart failure, CVA, cataract, constipation, GI bleeding, history of blood transfusion, coronary artery disease, and orthopedic surgery. FAMILY HISTORY: Father and mother noncontributory. HABITS: Never smoked. No drugs. No ethanol. ALLERGIES: THE PATIENT IS NOT ALLERGIC WITH ANY MEDICATION. HOME MEDICATIONS: Reviewed by me. REVIEW OF SYSTEMS: The patient is seen and examined at the bedside, looking comfortable. No nausea, vomiting, or diarrhea. No hematuria or hematochezia. No swelling of the legs. No chest pain. No palpitation. No headache. No dizziness. PHYSICAL EXAMINATION: VITAL SIGNS: Temperature 98.4, pulse 57, blood pressure 120/80. HEENT: Head is normocephalic and atraumatic. Eyes, PERRLA. Extraocular muscles intact. Conjunctivae clear. Nose is patent. Mucus membrane moist. NECK: Supple. No carotid bruits or thyromegaly. CHEST: Bilaterally symmetrical. HEART: S1 and S2 positive. LUNGS: Clear to auscultation. ABDOMEN: Soft. Bowel sounds positive. No organomegaly. EXTREMITIES: No edema. No cyanosis. NEUROLOGIC: The patient is awake and alert. Moving all 4 extremities. No focal deficit. MEDICATIONS: Reviewed by me. LABORATORY DATA: We do not have any recent labs today, but reviewed old labs. Glucose 229, 110. ASSESSMENT AND PLAN: The patient is an 86 years old lady with history of hypertension, hypercholesterolemia, diabetes mellitus, coronary artery disease, chronic obstructive pulmonary disease, congestive heart failure, history of multiple falls, cerebrovascular accident, cataract, constipation, gastrointestinal bleeding, coronary artery disease, and orthopedic surgery. At [facility] for multiple falls, hip pain. Orthopedic consult called, came to know that the patient has bursitis and tendinitis. Dr. Gaona did the injection, pain is a little bit better. Getting physical therapy. We will follow up. Margaret Gomez MD MTDD
[2017-03-16] MEDS: Sodium Chloride 0.9% 1,000 ML IV SCH (15:58)
[2017-03-17] MEDS: Pantoprazole 40 mg EC Tab PO SCH ×2 (05:24→16:44)
[2017-03-17] MEDS: Insulin Reg-MEDIUM-Coverage SC SCH ×4 (06:37→22:55)
[2017-03-17] MEDS: Insulin Detemir 100 units/ml Vial (Levemir) SC SCH ×2 (06:37→22:30)
[2017-03-17] MEDS: Metoprolol Succinate 50 mg XL Tab PO SCH ×2 (08:30→16:44)
[2017-03-17] MEDS: GlipiZIDE 5 mg SR Tab PO SCH ×2 (08:30→16:44)
[2017-03-17] MEDS: Oxycodone/Acetaminophen 10/325 mg Tab PO PRN (11:16)
--- NOTE | 2017-03-17 23:32 | PN ---
SUBJECTIVE: The patient is an 86-year-old female. The patient was seen and examined at the bedside, looks comfortable. is sitting on the bedside also. No nausea, vomiting or diarrhea. No hematemesis or hematochezia. No swelling of the legs. No chest pain and no palpitation. No headache or dizziness. PHYSICAL EXAMINATION VITAL SIGNS: Temperature 98.7, pulse 70, blood pressure 124/70, and respiratory rate 18. HEENT: Head, normocephalic and atraumatic. Eyes, PERRLA. Extraocular muscles intact. Conjunctivae clear. Nose patent. NECK: Supple. No carotid bruits, no JVD or thyromegaly. CHEST: Bilaterally symmetrical. HEART: S1 and S2 positive. LUNGS: Clear to auscultation. ABDOMEN: Soft. Bowel sounds positive. No organomegaly. EXTREMITIES: No edema and no cyanosis. NEUROLOGICAL: The patient is awake and alert. Moving all 4 extremities. No focal deficit. MEDICATIONS: Calcium carbonate, aspirin, Feosol, glipizide, insulin, Levemir, Lipitor, Percocet, Plavix, Protonix, Tylenol. Zestril, Zoloft, LABORATORY DATA: Sugars 134, 231, 89,173. ASSESSMENT AND PLAN: The patient is an 86-year-old lady with uncontrolled diabetes mellitus type 2, non-insulin requiring with history of hypertension, hypercholesterolemia, coronary artery disease, chronic obstructive pulmonary disease, congestive heart failure, history of multiple falls, cerebrovascular accident, cataract, constipation, history of gastrointestinal bleeding, status post blood transfusion, history of bursitis of the pelvis, getting physical therapy, [place] is on the case. Repeat labs. We will follow up. Margaret Gomez MD
[2017-03-18] MEDS: Pantoprazole 40 mg EC Tab PO SCH ×2 (06:17→17:30)
[2017-03-18] MEDS: Oxycodone/Acetaminophen 10/325 mg Tab PO PRN ×2 (06:30→21:36)
[2017-03-18] MEDS: Insulin Reg-MEDIUM-Coverage SC SCH ×4 (06:32→23:43)
[2017-03-18] MEDS: Insulin Detemir 100 units/ml Vial (Levemir) SC SCH ×2 (06:34→21:41)
[2017-03-18 07:15] LABS: CALCIUM 9.1 mg/dL (8.4-10.5); POTASSIUM 4.1 mmol/L (3.6-5.0)
[2017-03-18 07:42] LABS: HEMATOCRIT 32.4 % (36.0-48.0); MEAN CELL VOLUME 98.2 fl (80.0-105.0); MEAN CORPUSCULAR HEMOGLOBIN 32.1 pg (25.0-35.0); MEAN CORPUSCULAR HGB CONC 32.7 g/dl (31.0-37.0); MEAN PLATELET VOLUME 10.6 fl (7.0-11.0); RED CELL DISTRIBUTION WIDTH 16.3 % (11.5-14.5); WHITE BLOOD COUNT 6.2 10^3/ul (4.5-11.0)
[2017-03-18] MEDS: GlipiZIDE 5 mg SR Tab PO SCH ×2 (08:28→17:30)
[2017-03-18] MEDS: Metoprolol Succinate 50 mg XL Tab PO SCH ×2 (08:29→17:32)
[2017-03-18] MEDS: Sodium Chloride 0.9% 1,000 ML IV SCH (12:34)
--- NOTE | 2017-03-18 14:29 | PN ---
DATE: 03/16/2017 SUBJECTIVE: The patient was seen and examined on 03/16/2017. Looking comfortable. No nausea, vomiting or diarrhea. No hematuria. No hematochezia. No swelling of the legs. No chest pain. No palpitation. No headache. No dizziness. Have good sleep. Appetite is appropriate. PHYSICAL EXAMINATION: VITAL SIGNS: Temperature 98.3, pulse 60, blood pressure 120/80. HEENT: Head is normocephalic and atraumatic. Eyes PERRLA. Extraocular muscles intact. Conjunctivae clear. Nose patent. Mucous membrane moist. NECK: Supple. No carotid bruits, JVD, or thyromegaly. CHEST: Bilaterally symmetrical. HEART: S1 and S2 positive. LUNGS: cta ABDOMEN: Soft. Bowel sounds present. No organomegaly. EXTREMITIES: No edema, no cyanosis. NEUROLOGICAL: The patient is awake and alert. Moving all 4 extremities. No focal deficit. LABORATORY DATA: We do not have recent labs today, but reviewed old labs. MEDICATIONS: Caltrate, Ecotrin, iron, Glucotrol, insulin, Levemir, Lipitor, oxycodone, Percocet. ASSESSMENT AND PLAN: Ms. Rosemary Power is an 86-year-old lady with multiple medical problems; multiple falls; ataxia; came with bursitis; tendonitis of the hip; uncontrolled diabetes mellitus type 2, non-insulin requiring; hypertension; hypercholesterolemia; coronary artery disease; chronic obstructive pulmonary disease; congestive heart failure; cerebrovascular accident; constipation; history of gastrointestinal bleeding, status post blood transfusion. is at the beside. Continue present treatment. Repeat labs. We will follow up. Margaret Gomez MD MTDMiguel A
--- NOTE | 2017-03-19 02:53 | PN ---
DATE: SUBJECTIVE: The patient is 86 years old female. The patient is seen and examined at the bedside, looking comfortable. No nausea, vomiting or diarrhea. No hematuria or hematochezia. No swelling of the legs. No chest pain. No palpitation. No headache. No dizziness. PHYSICAL EXAMINATION: VITAL SIGNS: Temperature 97.8, pulse 60, blood pressure 120/80 and respiratory rate 20. HEENT: Head is normocephalic and atraumatic. Eyes, PERRLA. Extraocular muscles intact. Conjunctivae clear. Nose patent. Mucous membrane moist. NECK: Supple. No carotid bruits, JVD, or thyromegaly. CHEST: Bilaterally symmetrical. HEART: S1 and S2 positive. LUNGS: Clear to auscultation. ABDOMEN: Soft. Bowel sounds present. No organomegaly. EXTREMITIES: No edema. No cyanosis. NEUROLOGICAL: The patient is awake and alert. Moving all 4 extremities. No focal deficit. MEDICATIONS: Caltrate, Ecotrin, Feosol, Glucotrol, insulin, Levemir, Lipitor, oxycodone, Protonix, metoprolol, Tylenol, Zestril and Zoloft. LABORATORY DATA: White blood cell 6.3, hemoglobin 10.6, hematocrit 32.4 and platelets 173. Sodium 139, potassium 4.1, BUN 29, creatinine 1.1 and glucose 181. ASSESSMENT AND PLAN: Ms. Tono Riley is 86 years old lady with multiple medical problems, history of falls, ataxia, bursitis, tendonitis, uncontrolled diabetes mellitus type 2, non-insulin requiring; hypertension, hypercholesterolemia, coronary artery disease, chronic obstructive pulmonary disease, congestive heart failure, cerebrovascular accident, constipation, history of gastroesophageal bleeding, history of blood transfusion and getting physical therapy. We will followup. Margaret Gomez MD
[2017-03-19] MEDS: Sodium Chloride 0.9% 1,000 ML IV SCH (05:29)
[2017-03-19] MEDS: Oxycodone/Acetaminophen 10/325 mg Tab PO PRN ×3 (05:31→21:30)
[2017-03-19] MEDS: Pantoprazole 40 mg EC Tab PO SCH ×2 (05:31→18:02)
[2017-03-19] MEDS: Insulin Reg-MEDIUM-Coverage SC SCH ×4 (06:35→21:52)
[2017-03-19] MEDS: Insulin Detemir 100 units/ml Vial (Levemir) SC SCH ×2 (06:38→21:53)
[2017-03-19] MEDS: GlipiZIDE 5 mg SR Tab PO SCH ×2 (08:21→18:02)
[2017-03-19] MEDS: Metoprolol Succinate 50 mg XL Tab PO SCH ×2 (08:22→18:03)
[2017-03-20] MEDS: Sodium Chloride 0.9% 1,000 ML IV SCH ×2 (04:00→22:13)
[2017-03-20] MEDS: Oxycodone/Acetaminophen 10/325 mg Tab PO PRN ×2 (05:32→22:04)
[2017-03-20] MEDS: Pantoprazole 40 mg EC Tab PO SCH ×2 (06:20→17:00)
[2017-03-20] MEDS: Insulin Reg-MEDIUM-Coverage SC SCH ×4 (06:41→22:02)
[2017-03-20] MEDS: Insulin Detemir 100 units/ml Vial (Levemir) SC SCH ×2 (06:43→22:11)
[2017-03-20] MEDS: GlipiZIDE 5 mg SR Tab PO SCH ×2 (08:51→17:49)
[2017-03-20] MEDS: Metoprolol Succinate 50 mg XL Tab PO SCH ×2 (08:52→17:50)
--- NOTE | 2017-03-20 19:01 | PN ---
DATE: 03/20/2017 SUBJECTIVE: The patient is examined on the bedside and looking comfortable, sleepy, was able to moving all four extremities. Hip pain is getting better, successfully getting physical therapy. PHYSICAL EXAMINATION: VITAL SIGNS: Temperature 97.8, pulse 66, blood pressure 140/52, respiratory rate 20, oxygen saturation is 94. HEENT: Head is normocephalic and atraumatic. Eyes: PERRLA. Extraocular muscles are intact. Conjunctivae clear. Nose is patent. Mucous membrane moist. NECK: Supple. No carotid bruits. No JVD or thyromegaly. CHEST: Bilaterally symmetrical. HEART: S1 and S2 positive. LUNGS: Clear to auscultation. ABDOMEN: Soft. Bowel sounds positive. No organomegaly. EXTREMITIES: No edema. No cyanosis. NEUROLOGICAL: The patient is awake and alert. Moving all four extremities. No focal deficit. MEDICATIONS: Caltrate, Ecotrin, Feosol, Glucotrol, insulin, Lipitor, oxycodone, Protonix, Tylenol, and Levemir. LABORATORY DATA: We do not have recent labs, but I reviewed old labs. ASSESSMENT AND PLAN: The patient is an 86-year-old female with multiple medical problems; has history of uncontrolled diabetes mellitus type 2, non-insulin requiring; hypertension; hypercholesterolemia; coronary artery disease; chronic obstructive pulmonary disease; congestive heart failure; cerebrovascular accident;constipation; history of gastroesophageal reflux disease; history of blood transfusion due to anemia; history of fall at home; has ataxia; bursitis tendonitis of hip; degenerative joint disease; getting to be consulted with pain management, feeling better, we will followup. Margaret Gomez MD
[2017-03-21] MEDS: Oxycodone/Acetaminophen 10/325 mg Tab PO PRN (05:49)
[2017-03-21] MEDS: Pantoprazole 40 mg EC Tab PO SCH ×2 (05:49→19:04)
[2017-03-21] MEDS: Insulin Reg-MEDIUM-Coverage SC SCH ×4 (07:46→22:58)
[2017-03-21] MEDS: Insulin Detemir 100 units/ml Vial (Levemir) SC SCH ×2 (07:47→22:59)
[2017-03-21] MEDS: GlipiZIDE 5 mg SR Tab PO SCH ×2 (08:39→19:05)
[2017-03-21] MEDS: Metoprolol Succinate 50 mg XL Tab PO SCH ×2 (08:40→19:05)
--- NOTE | 2017-03-21 18:14 | CON ---
DATE: 03/21/2017 NEUROLOGY CONSULT CHIEF COMPLAINT: History of slurred speech, generalized weakness. HISTORY OF PRESENT ILLNESS: An 86-year-old women who is well known to me from pervious admission with past medical history of frequent falls, weakness and hip pain, therefore she was admitted. She has history of hypertension, hypercholesterolemia, type-2 diabetes mellitus, coronary artery disease, status post PCI, cognitive impairment but had a recent change in the slurred speech, episode was 02/15/2017 which was secondary to underlying cerebral hyperperfusion and superimposed underlying urinary tract infection at that particular time. She had a MRI of the brain on 01/23/2017 which showed no acute intracranial abnormality. There is a lacunar infarct in the left basal ganglia and pena radiata and chronic microvascular changes. 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 She is currently on aspirin and Plavix 81 and 75 mg, Lipitor for stroke prevention. She came into the hospital because is on TCU for to regain physical therapy for underlying left hip bursitis and deconditioning state. Dr. Gaona from orthopedics has evaluated the patient and has recommended certain types of therapies, which I reviewed and appreciated. Currently, she is doing much better, no further slurred speech, there is articulation problems. She does have evidence of mild diabetic neuropathy on neuro exam and is mildly deconditioned. PAST MEDICAL HISTORY: History of hypercholesterolemia, hypertension, type-2 diabetes mellitus, congestive heart failure, COPD, multiple falls, history lacunar infarcts, history of slurred speech, history of transient cerebral hypoperfusion and UTI. REVIEW OF SYSTEMS: A 14-point review of system is negative except as in the HPI. ALLERGIES: NO KNOWN DRUG ALLERGIES. MEDICATION: Reviewed by the nurse per reconciliation sheet. FAMILY HISTORY: Noncontributory. SOCIAL HISTORY: No illicit drug use, smoking or EtOH abuse. PHYSICAL EXAMINATION: VITAL SIGNS: Temperature of 98, pulse 67, blood pressure 130/51, respiration rate of 19, oxygen saturation 96% via room air. GENERAL: The patient is sitting up in bed, in no acute distress. HEENT: Head is atraumatic and normocephalic. PERRLA. Extraocular muscles intact. NECK: Supple. No JVD. No adenopathy noted. LUNGS: Clear to auscultation. No adventitious sounds. HEART: S1 and S2, normal rate and rhythm. No murmurs, rubs, or gallops. ABDOMEN: Soft, nontender, nondistended. Bowel sounds are present. EXTREMITIES: No clubbing and no cyanosis. Peripheral pulses are 2+, felt bilaterally. NEUROLOGIC: The patient is alert and oriented to person, place, month and year. Recall after 5 minutes is 0 out of 3. Poor attention. Slow thought process. Speech is fluent without any aphasia. Cranial nerves II through XII intact. Motor exam: Slight increased tone throughout. Moves all extremities equally. No pronator drift seen. Sensory exam: Decreased light touch, pinprick up to the calves bilaterally, decreased vibration of the toes. DTRs are 1+ and absent at the knees and ankles. Coordination: [id number] intact. Gait is deferred for now. LABORATORY DATA: Blood sugar is 108, B12 recently has been 527. ASSESSMENT AND PLAN: This is an 86-year-old woman with history of hypertension, hypercholesterolemia, type-2 diabetes mellitus, coronary artery disease, status post PCI, chronic obstructive pulmonary disease, congestive heart failure, history of deconditioned state, history of multiple falls, history of lacunar infarcts, history of transient cerebral hyperperfusion, who was initially seen by me on 02/15/2017, who had transient slurred speech secondary to transient cerebral hyperperfusion, superimposed underlying age sepsis from urinary tact infection. Currently, she is for left hip bursitis and tendonitis and underlying deconditioned state and is undergoing physical and occupational therapy. At this time, I recommend: 1. Continue with physical and occupational therapy for underlying deconditioning state as well as her underlying hip bursitis. 2. Follow with orthopedics in regards to further management for underlying hip bursitis. 3. Monitor electrolytes to correct accordingly. 4. Keep her systolic blood pressure above 120 and avoid hypotensive episodes. 5. Continue with aspirin 81 mg, Plavix 75 mg and Lipitor 10 mg for stroke prevention. 6. Keep her blood sugars between 140 to 180 and diabetic diet and continue current present medical management. Thank you for this consult. Danielito Montes De Oca MD
[2017-03-21] MEDS: Sodium Chloride 0.9% 1,000 ML IV SCH (19:03)
[2017-03-22] MEDS: Pantoprazole 40 mg EC Tab PO SCH (06:01)
[2017-03-22] MEDS: Insulin Reg-MEDIUM-Coverage SC SCH ×2 (08:33→13:22)
[2017-03-22] MEDS: GlipiZIDE 5 mg SR Tab PO SCH (08:35)
[2017-03-22] MEDS: Metoprolol Succinate 50 mg XL Tab PO SCH (08:36)
[2017-03-22] MEDS: Insulin Detemir 100 units/ml Vial (Levemir) SC SCH (09:45)
[2017-03-22 10:23] VITALS: RESP 20; TEMP 98.4; O2SAT 96
[2017-03-22 11:05] VITALS: BP 151/60; PULSE 65
--- NOTE | 2017-03-22 12:49 | PN ---
DATE: SUBJECTIVE: The patient is an 86-year-old female. The patient seen and examined at the bedside. was standing on the bedside, also looking comfortable. No nausea, vomiting or diarrhea. No hematuria or hematochezia. No swelling of the leg. No chest pain. No palpitation. No headache. No dizziness. No shortness of breath. PHYSICAL EXAMINATION VITAL SIGNS: Temperature 98.2, pulse 65, blood pressure 128/61, and respiratory rate 18. HEENT: Head is normocephalic and atraumatic. Eyes; PERRLA. Extraocular muscles intact. Conjunctivae clear. Nose patent. Mucous membranes moist. NECK: Supple. No carotid bruits, no JVD or thyromegaly. CHEST: Bilaterally symmetrical. HEART: S1 and S2 positive. LUNGS: Clear to auscultation. ABDOMEN: Soft. Bowel sounds present. No organomegaly. EXTREMITIES: No edema and no cyanosis. NEUROLOGIC: The patient is awake and alert. Moving all four extremities. No focal deficit. MEDICATIONS: Caltrate, Ecotrin, iron sulfate, Glucotrol, insulin, Levemir, Plavix, Zestril, and Zoloft. LABORATORY DATA: White blood cells 6.2, hemoglobin 10.6, hematocrit 32.4, and platelets 173. Glucose 211, 108, 194, and 148. ASSESSMENT AND PLAN: Ms. Rosemary Power is an 86-year-old lady with multiple medical problems; history of hypercholesterolemia, hypertension, diabetes mellitus type 2, congestive heart failure, chronic obstructive pulmonary disease, multiple falls, history of slurred speech, transient ischemic attack, history of urinary tract infection, now in TCU getting rehab. As per , the patient has mild change of status, has left hip bursitis, tendonitis, deconditioning. We called Neurology consult, Dr. Montes De Oca. Continue Physical and Occupational therapy. Monitor electrolytes. I ordered labs. Keep systolic blood pressure above 120 as per neurologist. Continue aspirin. GI and DVT prophylaxis. Repeat labs. We will follow up. Margaret Gomez MD NANCY
--- NOTE | 2017-03-22 13:17 | PN ---
DATE: 03/20/2017 SUBJECTIVE: The patient was seen and examined on the bedside on 03/20/2017, looking comfortable. No nausea, vomiting or diarrhea. No hematuria or hematochezia. No swelling of the legs and No chest pain or palpitation. No headache and no dizziness. PHYSICAL EXAMINATION VITAL SIGNS: Temperature of 97.6, pulse of 71, and blood pressure of 129/59. HEENT: Head is normocephalic and atraumatic. Eyes, PERRLA. Extraocular muscles intact. Conjunctivae clear. Nose patent. Mucous membrane moist. NECK: Supple. No carotid bruits. No JVD or thyromegaly. CHEST: Bilaterally symmetrical. HEART: S1 and S2 positive. LUNGS: Clear to auscultation. ABDOMEN: Soft. Bowel sounds present. No organomegaly. EXTREMITIES: No edema. No cyanosis. NEUROLOGICAL: The patient is awake and alert. Moving all 4 extremities. No focal deficit. MEDICATIONS: Carafate, Ecotrin, Feosol, Glucotrol, insulin, Levemir, Plavix, and Zoloft. LABORATORY DATA: We do not have recent labs today, but I reviewed old labs. ASSESSMENT AND PLAN: Ms. Power is a 86-year-old lady with multiple medical problems, deconditioning, multiple falls, ataxia, bursitis. tendonitis of the hip, uncontrolled diabetes mellitus type II, hypertension, hypercholesterolemia, coronary artery disease, chronic obstructive lung disease, congestive heart failure, cerebrovascular accident, constipation, history of gastrointestinal bleeding, and history of blood transfusion. Getting physical therapy, gastrointestinal and deep venous thrombosis prophylaxis and labs. We will follow up. Margaret Gomez MD
--- NOTE | 2017-04-05 18:26 | DS ---
CHIEF COMPLAINT: Weakness, hip pain and falling. HISTORY OF PRESENT ILLNESS: Ms. Tono Riley is an 86 years old lady, was admitted to [facility] for multiple falls, weakness, and hip pain. Has other medical problems also. Scan was done. Jimenez saw the patient, gave intra-articular injection, got better, transferred to TCU for continuity of care and for physical therapy. The patient got physical therapy, got little better not enough that she cannot do her ADL, was not able to take care of herself, was then transferred to [facility]. Will continue treatment in [facility]. PAST MEDICAL HISTORY: Hypertension, hypercholesterolemia, diabetes melitis, coronary artery disease, COPD, congenitive heart failure, CVA, cataract, history of GI bleeding, coronary artery disease. FAMILY HISTORY: Father and mother noncontributory. HABITS: Never smoked. No drugs. No ethanol. ALLERGIES: THE PATIENT IS NOT ALLERGIC WITH ANY MEDICATION. HOME MEDICATIONS: Reviewed by me. REVIEW OF SYSTEMS: The patient was seen and examined on the bedside, looking comfortable. No nausea, vomiting, or diarrhea. No hematuria or hematochezia. No headache. No dizziness. No swelling of the legs. level is okay. PHYSICAL EXAMINATION: VITAL SIGNS: Temperature 98.4, pulse 55, blood pressure 150/60, respiratory rate 20. HEENT: Head is normocephalic and atraumatic. Eyes, PERRLA. Extraocular muscles intact. Conjunctivae clear. Nose patent. Mucus membrane moist. NECK: Supple. No carotid bruits. No JVD. No thyromegaly. CHEST: Bilaterally symmetrical. HEART: S1 and S2 positive. LUNGS: Clear to auscultation. ABDOMEN: Soft. Bowel sounds positive. No organomegaly. EXTREMITIES: No edema. No cyanosis. NEUROLOGIC: The patient is awake and alert. Moving all 4 extremities. No focal deficit. LABORATORY DATA: White blood cells 6.2, hemoglobin 10.6, hematocrit 32.4 and platelets 173. Glucose 176, 148 and 162. ASSESSMENT AND PLAN: Ms. Rosemary Power is an 86 years old lady with multiple medical problems, history of slurring of speech, generalized weakness, fall, history of anemia, hypertension, hypercholesterolemia, diabetes mellitus type 2, coronary artery disease, status post percutaneous coronary intervention, chronic obstructive pulmonary disease, congestive heart failure, deconditioned, history of hypoperfusion of the brain as per neurologist, history of urinary tract infection, sepsis, got treatment, left hip bursitis and tendinitis. The patient got physical therapy, improved but not enough, cannot do her ADL, is not able to take care of herself. Family is working, transferred the patient [facility] for further physical therapy and continuity of care. For more detail, see my progress note of 03/22/2017. Margaret Gomez MD MTDMiguel A
== END 2017-03-22 13:45 | DRG 558 ==
LOC: TRCU 19:38
PROVIDERS: ADMIT Internal Medicine; ATTEND Internal Medicine
PROC: F07Z9FZ Gait Training/Functional Ambulation Treatment using Assistive, Adaptive, Supportive or Protective Equipment (ICD-10-PCS; principal; 2017-03-16)
PROC: F07M6ZZ Therapeutic Exercise Treatment of Musculoskeletal System - Whole Body (ICD-10-PCS; 2017-03-16)
PROC: F08Z1ZZ Dressing Techniques Treatment (ICD-10-PCS; 2017-03-16)
PROC: F08Z2ZZ Grooming/Personal Hygiene Treatment (ICD-10-PCS; 2017-03-16)
PROC: F08Z0ZZ Bathing/Showering Techniques Treatment (ICD-10-PCS; 2017-03-16)
DX: M70.62 Trochanteric bursitis, left hip (principal); I11.0 Hypertensive heart disease with heart failure; E11.40 Type 2 diabetes mellitus with diabetic neuropathy, unspecified; E11.65 Type 2 diabetes mellitus with hyperglycemia; I50.9 Heart failure, unspecified; J44.9 Chronic obstructive pulmonary disease, unspecified; K21.9 Gastro-esophageal reflux disease without esophagitis; K59.00 Constipation, unspecified; M16.10 Unilateral primary osteoarthritis, unspecified hip; Z86.73 Personal history of transient ischemic attack (TIA), and cerebral infarction without residual deficits; E78.00 Pure hypercholesterolemia, unspecified; I25.10 Atherosclerotic heart disease of native coronary artery without angina pectoris; M77.9 Enthesopathy, unspecified; R29.6 Repeated falls; Z87.440 Personal history of urinary (tract) infections; Z98.61 Coronary angioplasty status; R53.81 Other malaise; R27.0 Ataxia, unspecified

== ENCOUNTER 2018-09-05 14:10 | Inpatient (IN) | payer MEDICARE ==
[2018-09-05] MEDS ORDERED: Sodium Chloride 0.9% 1,000 ML IV SCH (14:30)
--- NOTE | 2018-09-05 14:48 | CT ---
Date of service: 09/05/2018 PROCEDURE: CT HEAD WITHOUT CONTRAST. HISTORY: weakness COMPARISON: 02/10/2017 TECHNIQUE: Axial computed tomography images were obtained through the head/brain without intravenous contrast. Supplemental Coronal and Sagittal projections created and reviewed. Radiation dose: Total exam DLP = 982.31 mGy-cm. This CT exam was performed using one or more of the following dose reduction techniques: Automated exposure control, adjustment of the mA and/or kV according to patient size, and/or use of iterative reconstruction technique. FINDINGS: HEMORRHAGE: No intracranial hemorrhage. BRAIN: No mass effect or edema. Cortical and cerebellar atrophy, periventricular small vessel disease. Internal capsule and basal ganglia infarcts, old. VENTRICLES: Unremarkable. No hydrocephalus. CALVARIUM: Unremarkable. PARANASAL SINUSES: Unremarkable as visualized. No significant inflammatory changes. MASTOID AIR CELLS: Unremarkable as visualized. No inflammatory changes. OTHER FINDINGS: None. IMPRESSION: No acute intracranial abnormalities. No significant findings to account for the clinical presentation. No significant interval change compared to the prior examination(s).
[2018-09-05 14:58] LABS: BASO # 0.01 K/mm3 (0.0-2.0); BASO % 0.1 % (0.0-3.0); EOS # 0.1 (0.0-0.7); EOS % 0.6 % (1.5-5.0); HEMOGLOBIN 11.3 g/dL (12.0-16.0); LYMPH # 3.2 (1.2-3.4); LYMPH % 27.6 % (22.0-35.0); MEAN CELL VOLUME 104.6 fl (80.0-105.0); MEAN CORPUSCULAR HGB CONC 33.4 g/dl (31.0-37.0); MEAN PLATELET VOLUME 10.7 fl (7.0-11.0); MONO # 0.6 (0.1-0.6); MONO % 4.8 % (1.0-6.0); RBC 3.23 10^6/uL (3.5-6.1); RED CELL DISTRIBUTION WIDTH 14.8 % (11.5-14.5); WHITE BLOOD COUNT 11.6 10^3/uL (4.5-11.0)
[2018-09-05 15:06] LABS: INR 1.15; PARTIAL THROMBOPLASTIN TIME 32.7 Seconds (26.9-38.3); PROTHROMBIN TIME 12.8 SECONDS (9.4-12.5)
[2018-09-05 15:07] LABS: ALB/GLOB RATIO 1.2 (1.1-1.8); ALBUMIN 4.4 g/dL (3.0-4.8); ALT/SGPT 18 U/L (7-56); AST/SGOT 32 U/L (14-36); BLOOD UREA NITROGEN 26 mg/dL (7-21); CALCIUM 9.8 mg/dL (8.4-10.5); GFR NON-AFRICAN AMERICAN 59; HDL CHOLESTEROL 34 mg/dL (29-60)
--- NOTE | 2018-09-05 15:10 | RAD ---
Date of service: 09/05/2018 HISTORY: Code Stroke COMPARISON: 03/12/2017 FINDINGS: LUNGS: No active pulmonary disease. PLEURA: No significant pleural effusion identified, no pneumothorax apparent. CARDIOVASCULAR: No aortic atherosclerotic calcification present. Mild cardiomegaly no pulmonary vascular congestion. OSSEOUS STRUCTURES: No significant abnormalities. VISUALIZED UPPER ABDOMEN: Normal. OTHER FINDINGS: None. IMPRESSION: No active disease.
[2018-09-05 15:18] LABS: LDL CHOLESTEROL 60 mg/dL (0-129)
[2018-09-05 15:22] LABS: TROPONIN I < 0.01 ng/mL
--- NOTE | 2018-09-05 15:57 | ED PDOC ---
Arrival/HPI - General Chief Complaint: Weakness/Neurological Deficit Time Seen by Provider: 09/05/18 14:20 Historian: Patient, Family (Son and helped provide information ) - History of Present Illness Narrative History of Present Illness (Text): 09/05/18 14:25 88 year old female, whose past medical history includes diabetes, and hypertension, who was brought in to the emergency department after face-downfall noted by via camera that is located in house. reports he helped patient get dressed this morning around 06:30 when she seemed to be having difficulty walking, worse than normal. states he left home around 07:30 and noted that he saw that she had lost her balance and fallen face down via a camera he has installed at home around 09:30, so the son went to the home immediately. Son notes ecchymosis to nose, difficulty speaking and difficulty walking. Patient incorrectly answered what year and month it was when asked, but family notes this is her baseline. noted patient walks with a walker. Patient took Aspirin prior to arrival. There are no other complaints at this time. PMD: Daria Zhu 09/05/18 19:35 Time/Duration: Prior to Arrival Symptom Onset: Sudden Symptom Course: Unchanged Context: Other (Patient lost balance and fell ) Past Medical History - Provider Review Nursing Documentation Reviewed: Yes - Infectious Disease Hx of Infectious Diseases: None - Reproductive Menopause: Yes - Cardiac Hx Cardiac Disorders: Yes Hx Hypertension: Yes - Pulmonary Hx Respiratory Disorders: No - Neurological HX Cerebrovascular Accident: Yes - HEENT Hx Cataracts: Yes - Renal Hx Renal Disorder: No - Endocrine/Metabolic Hx Diabetes Mellitus Type 2: Yes - Hematological/Oncological Hx Blood Transfusions: No Hx Blood Transfusion Reaction: No - Integumentary Hx Dermatological Disorder: No - Musculoskeletal/Rheumatological Hx Falls: Yes - Gastrointestinal Hx Gastrointestinal Disorders: Yes (CONSTIPATION,GI BLEED) - Genitourinary/Gynecological Hx Genitourinary Disorders: Yes (UTI) - Psychiatric Hx Anxiety: Yes Hx Depression: Yes Hx Substance Use: No - Surgical History Hx Cardiac Catheterization: Yes Hx Coronary Stent: Yes (x4) Hx Orthopedic Surgery: Yes - Anesthesia Hx Anesthesia: Yes Hx Anesthesia Reactions: No Hx Malignant Hyperthermia: No - Suicidal Assessment Feels Threatened In Home Enviroment: No Family/Social History - Physician Review Nursing Documentation Reviewed: Yes Family/Social History: No Known Family HX Smoking Status: Never Smoked Hx Alcohol Use: Yes (social) Hx Substance Use: No Allergies/Home Meds Allergies/Adverse Reactions: Allergies No Known Allergies Allergy (Verified 09/05/18 16:55) Home Medications: Home Meds Medication Instructions Recorded Confirmed RX: Aspirin [Adult Low Dose 81 mg PO DAILY 02/10/17 09/05/18 Aspirin EC] RX: Atorvastatin [Lipitor] 10 mg PO DAILY 02/10/17 09/05/18 RX: Calcium Carbonate/Vitamin D3 2 tab PO DAILY 02/10/17 09/05/18 [Calcium 600-Vit D3 500 Softgel] RX: Enalapril Maleate [Vasotec] 10 mg PO DAILY 02/10/17 09/05/18 RX: Ferrous Sulfate [Feosol] 325 mg PO DAILY 02/10/17 09/05/18 RX: Glipizide [Glipizide Xl] 5 mg PO BID 02/10/17 09/05/18 RX: Insulin Glargine, Recombina 15 unit SC HS 02/10/17 09/05/18 [Lantus] RX: Insulin Human Regular [HumuLIN 4 units SC BRK PRN 02/10/17 09/05/18 R] RX: Insulin Human Regular [HumuLIN 6 units SC BID PRN 02/10/17 09/05/18 R] RX: Metoprolol Succinate XL 50 mg PO BID 02/10/17 09/05/18 [Toprol XL] RX: Pantoprazole [Protonix EC Tab] 40 mg PO BID 02/10/17 09/05/18 RX: Lisinopril [Zestril] 5 mg PO DAILY 03/12/17 09/05/18 RX: Oxycodone HCl/Acetaminophen 1 tape PO Q12 PRN 03/12/17 09/05/18 [Endocet 10-325 mg Tablet] Review of Systems - Physician Review All systems were reviewed & negative as marked: Yes - Review of Systems ENT: Other (Son notes ecchymosis to nose ). absent: Normal Neurological: Gait Changes ( notes pt was having difficulty walking this morning, worse than normal ), Speech Changes (Son notes patient is having difficulty speaking since). absent: Normal Physical Exam Vital Signs Reviewed: Yes Vital Signs Temp Pulse Resp BP Pulse Ox 09/05/18 15:46 73 18 125/52 L 95 09/05/18 14:49 98 F 79 18 127/49 L 96 09/05/18 14:10 98 F 64 18 127/49 L 95 Temperature: Afebrile Blood Pressure: Hypotensive Pulse: Regular Respiratory Rate: Normal Appearance: Positive for: Well-Appearing, Non-Toxic, Comfortable Pain Distress: None Mental Status: Positive for: Alert and Oriented X 3 ( reports patient oriented at baseline) Finger Stick Blood Glucose: 171 - Systems Exam Head: Present: Atraumatic, Normocephalic Pupils: Present: PERRL Extroacular Muscles: Present: EOMI Conjunctiva: Present: Normal Mouth: Present: Moist Mucous Membranes Nose (Internal): Present: Other (swelling to bridge of nose) Neck: Present: Normal Range of Motion Respiratory/Chest: Present: Clear to Auscultation, Good Air Exchange. No: Respiratory Distress, Accessory Muscle Use Cardiovascular: Present: Regular Rate and Rhythm, Normal S1, S2. No: Murmurs Abdomen: No: Tenderness, Distention, Peritoneal Signs Back: Present: Normal Inspection Upper Extremity: Present: Normal Inspection. No: Cyanosis, Edema Lower Extremity: Present: Normal Inspection. No: Edema Neurological: Present: GCS=15, CN II-XII Intact, Speech Normal Skin: Present: Warm, Dry, Normal Color. No: Rashes Psychiatric: Present: Alert, Oriented x 3, Normal Insight, Normal Concentration Medical Decision Making ED Course and Treatment: 09/05/18 14:25 Impression: 88 year old female brought in to the emergency department after face-downfall noted by via camera that is installed in house. clincal nasal fracture - also with unsteady gait, and ?aphagia Differential Diagnosis included but are not limited to: ro stroke, intracranial, infectious etiology Plan: -- Labs -- CT of head w/o (Code Stroke) -- EKG -- X-Ray of chest -- IV fluids -- Urinalysis -- Reassess and disposition Progress Notes: 09/05/18 19:36 09/05/18 19:[address] mo. not tpa canddiate as symptoms since [address] neg[address] nih low. pt took asa today. - Lab Interpretations Lab Results: PT 12.8 SECONDS (9.4-12.5) H 09/05/18 14:45 INR 1.15 02/06/19 14:45 APTT 32.7 Seconds (26.9-38.3) 09/05/18 14:45 Troponin I < 0.01 ng/mL D 09/05/18 14:45 Total Bilirubin 0.4 mg/dL (0.2-1.3) 09/05/18 14:45 AST 32 U/L (14-36) 09/05/18 14:45 ALT 18 U/L (7-56) 09/05/18 14:45 Alkaline Phosphatase 76 U/L (38-126) 09/05/18 14:45 Total Protein 7.9 g/dL (5.8-8.3) 09/05/18 14:45 Albumin 4.4 g/dL (3.0-4.8) 09/05/18 14:45 Globulin 3.5 gm/dL 09/05/18 14:45 Albumin/Globulin Ratio 1.2 (1.1-1.8) 09/05/18 14:45 - RAD Interpretation Narrative RAD Interpretations (Text): CT of head reviewed by radiologist, shows: Dictated By: Chano Samayoa MD Dictated Date/Time: 09/05/18 14:44 Impression: No acute intracranial abnormalities. No significant findings to account for the clinical presentation. No significant interval change compared to the prior examination(s). X-Ray of chest reviewed by radiologist, shows: Dictated By: Rafael Murcia MD Dictated Date/Time: 09/05/18 15:06 Impression: No active disease. Radiology Orders: 09/05/18 14:30 HEAD W/O (CODE STROKE) [CT] Stat CHEST PORTABLE [RAD] Stat Cobbler Sole: Radiologist - EKG Interpretation EKG Interpretation (Text): 09/05/18 EKG: Ordered, reviewed, and independently interpreted the EKG. Rate : 63 BPM Rhythm : Sinus rhythm vs junctional rhythm Interpretation : Non-specific ST-T wave changes, poor tracing secondary to artifact Interpreted by ED Physician: Yes Type: 12 lead EKG - Medication Orders Current Medication Orders: Sodium Chloride (Sodium Chloride 0.9%) 1,000 mls @ 100 mls/hr IV .Q10H [facility] Last Admin: 09/05/18 15:05 Dose: 100 mls/hr eMAR Start Stop Document 09/05/18 15:05 GMD (Rec: 09/05/18 15:07 GMD [id number]) Intravenous Solution Start Date 09/05/18 Start Time 15:07 NIHSS Scale ([place]) Time Performed: 17:01 - How Severe is the Stoke Baseline Level of Consciousness: 0=Alert LOC to Questions: 1=One correct LOC to commands: 0=Obeys both correctly Best Gaze: 0=Normal Visual: 0=No visual loss Facial: 0=Normal Motor Arm - Left: 0=No drift Motor Arm - Right: 0=No drift Motor Leg - Left: 0=No drift Motor Leg - Right: 0=No drift Limb Ataxia: 2=Present both Sensory: 0=Normal Best Language: 1=Mild to moderate aphasia Dysarthia: 0=Normal articulation Extinction & Inattention (Neglect): 0=Normal, no object Score: 4 Risk Level: Minor Stroke Risk rTPA Inclusion/Exclusion - Refusal of Treatment Patient Refused Treatment: No - Inclusion Criteria for Altepase Patient is 18 years or Older: Yes The Clinical Diagnosis of Ischemic Stroke That is Causing a Potentially Disabling Neurological Deficit: No Time of Onset is Well Established to be Less Than 270 Minute Before Treatment Would Begin: No Risk/Benefit Discussed With Patient/Family Member Present: Yes - Scribe Statement The provider has reviewed the documentation as recorded by the Scribe Mihaela Gurrola All medical record entries made by the Scribe were at my direction and personally dictated by me. I have reviewed the chart and agree that the record accurately reflects my personal performance of the history, physical exam, medical decision making, and the department course for this patient. I have also personally directed, reviewed, and agree with the discharge instructions and disposition. Disposition/Present on Arrival - Present on Arrival Any Indicators Present on Arrival: No History of DVT/PE: No History of Uncontrolled Diabetes: No Urinary Catheter: No History of Decub. Ulcer: No History Surgical Site Infection Following: None - Disposition Have Diagnosis and Disposition been Completed?: Yes Diagnosis: Unsteady gait, TIA (transient ischemic attack) Disposition: HOSPITALIZED Disposition Time: 18:00 Patient Problems: Current Active Problems Problem Status Onset TIA (transient ischemic attack) Acute Unsteady gait Acute Condition: STABLE
[2018-09-05] MEDS: Pantoprazole 40 mg EC Tab PO SCH (18:36)
[2018-09-05] MEDS: GlipiZIDE 5 mg SR Tab PO SCH (18:36)
[2018-09-05] MEDS: Sodium Chloride 0.9% 1,000 ML IV SCH (20:39)
--- NOTE | 2018-09-05 21:34 | US ---
PROCEDURE: Carotid artery duplex ultrasound HISTORY: Carotid stenosis PHYSICIAN(S): Kg Rios MD. TECHNIQUE: Duplex sonography and color-flow Doppler were used to evaluate the carotid bifurcations and limited segments of the vertebral arteries bilaterally. FINDINGS: There is moderate irregular heterogeneous echogenic plaque noted at the carotid bifurcations bilaterally. The peak systolic velocity in the proximal right internal carotid artery is 55 cm/sec. This corresponds to a 20 to 39% proximal right ICA stenosis. Mildly elevated systolic velocities are noted in the proximal right external carotid artery. There is antegrade flow in the right vertebral artery. The peak systolic velocity in the proximal left internal carotid artery is 119 cm/sec. This corresponds to a 40-59 percent proximal left ICA stenosis. Mildly elevated systolic velocities are noted in the proximal left external carotid artery. There is blunted antegrade flow in the left vertebral artery. IMPRESSION: 1. 40-59 percent proximal left ICA stenosis 2. 20-39 percent proximal right ICA stenosis 3. Antegrade flow in both vertebral arteries.
[2018-09-05 21:47] VITALS: BMI 30.2
[2018-09-05] MEDS ORDERED: Pneumococcal 23-Valent Vaccine IM ONE (21:47)
[2018-09-05] MEDS ORDERED: Influenza Vaccine 60 mcg/0.5 mL SYR (4YR UP) IM ONE (21:47)
[2018-09-05] MEDS: Insulin Detemir 100 units/ml Vial (Levemir) SC SCH (22:48)
--- NOTE | 2018-09-05 23:16 | HP ---
DATE OF EXAM: 09/05/2018 HISTORY OF PRESENT ILLNESS: Patient is 88 years old, was brought in by family after she had a fall. Patient's was at the bedside, states that he was seeing, she got up this morning, was little slow and but she had her breakfast, got dressed up and then he left the house and he saw on camera that she fell on her face. He left home around 7:30 and when he saw her falling, he called the son, who rushed home and helped mom to get up. She had bruises on the face, so they called ambulance and she was brought to emergency room. She seems to be confused more than her usual self and she had slurred speech and usually at the baseline, she walks with a walker and she was having some difficulty walking since morning. PAST MEDICAL HISTORY: Significant for; 1. Hypertension. 2. Insulin dependent diabetes. 3. Chronic anemia. 4. Hyperlipidemia. 5. Coronary artery disease. 6. History of chronic obstructive pulmonary disease. 7. History of cerebrovascular accident in the past. 8. History of gastrointestinal bleed. 9. Chronic anemia. ALLERGIES: HE IS NOT ALLERGIC TO ANY MEDICATION. MEDICATION AT HOME: She is on Protonix 40 mg daily, metoprolol 50 mg twice a day, insulin 4 units before breakfast, 6 units before dinner. She is on Lantus 15 units at bedtime, glipizide 5 mg twice a day, ferrous sulfate 325 mg daily, enalapril 10 mg daily, atorvastatin 10 mg daily, aspirin 81 mg daily, Tylenol, and calcium carbonate. SOCIAL HISTORY: She is , lives with her . Denies smoking or drinking. Only drinks here and there socially. PHYSICAL EXAMINATION: GENERAL: She is awake, alert and oriented. She has slurred speech. VITAL SIGNS: She is afebrile, pulse , respiration 20, and blood pressure 126/ . LUNGS: Bilateral fair airflow. No rhonchi or crackle. HEART: S1 and S2 audible. ABDOMEN: Soft and nontender. No rebound and no guarding. NEUROLOGIC: Patient is awake and alert, but somewhat confused and disoriented. EXTREMITIES: Bilateral leg, no edema. She is able to move upper and lower extremities. LABORATORY DATA: WBC is 11.6, hemoglobin 11.3, hematocrit 33.8, platelet 210, PT 12.8, INR 1.15. Chemistry, sodium 137, potassium 5.0, chloride 102, CO2 of 24, BUN 26, creatinine 0.9, and blood sugar of 158. LFTs are within normal limits. ASSESSMENT AND PLAN: 1. Status post fall. 2. Facial contusion. 3. Slurred speech, rule out cerebrovascular accident. 4. Hypertension. 5. Insulin dependent diabetes. 6. Hyperlipidemia. 7. History of cerebrovascular accident in the past. PLAN: We will order for carotid Doppler, request for physical therapy, monitor blood sugar. She failed swallowing evaluation, we will give her IV fluid 60 mL/hour of saline and awaiting Cardiology and Neurology consult. We will order for echocardiogram. We will request for MRI after seen by neurologist. Ho Christina MD
--- NOTE | 2018-09-06 00:53 | CARD ---
APPROVED REPORT Date of service: 09/05/2018 EKG Measurement Heart [id number] <Conclusion> Questionable NSR Low voltage QRS Possible Septal infarct, age undetermined Baseline artifact Abnormal ECG
[2018-09-06] MEDS: Sodium Chloride 0.9% 1,000 ML IV SCH ×2 (05:06→12:37)
[2018-09-06] MEDS: Insulin Regular 1 UNITS/0.01 ML ML SC SCH ×2 (08:43→16:30)
[2018-09-06] MEDS: Pantoprazole 40 mg EC Tab PO SCH ×2 (09:21→18:00)
[2018-09-06] MEDS: Metoprolol Succinate 50 mg XL Tab PO SCH ×2 (09:21→18:00)
[2018-09-06] MEDS: GlipiZIDE 5 mg SR Tab PO SCH ×2 (09:21→18:00)
[2018-09-06] MEDS: Insulin Detemir 100 units/ml Vial (Levemir) SC SCH ×2 (09:21→22:04)
[2018-09-06] MEDS: Nystatin 100,000 Units/gm Topical Pow(15 gm) TOP SCH ×2 (09:22→18:00)
--- NOTE | 2018-09-06 10:44 | CP.PCM.APN ---
Subjective - Date & Time of Evaluation Date of Evaluation: 09/06/18 Time of Evaluation: 09:00 - Subjective Subjective: pt seen and examined at bedside , pt in NAD , pt states she fell and thats what brought her to hospital pt denies any headache or dizziness Review of Systems - Review of Systems All systems: reviewed and no additional remarkable complaints except Objective - Vital Signs/Intake and Output Vital Signs (last 24 hours): Temp Pulse Resp BP Pulse Ox 97.9 F 72 18 129/65 97 09/06/18 06:00 09/06/18 06:00 09/06/18 06:00 09/06/18 06:00 09/06/18 06:00 Intake and Output: 09/06/18 09/06/18 06:59 18:59 Intake Total 590 Balance 590 - Medications Medications: Current Medications Acetaminophen (Tylenol 325mg Tab) 650 mg PO Q6H PRN PRN Reason: Fever >100.4 F Aspirin (Ecotrin) 81 mg PO DAILY [facility] Last Admin: 09/06/18 09:20 Dose: Not Given Aspirin (Aspirin Supp) 300 mg RC DAILY [facility] Atorvastatin Calcium (Lipitor) 10 mg PO DIN [facility] Ferrous Sulfate (Feosol) 324 mg PO DAILY [facility] Last Admin: 09/06/18 09:20 Dose: Not Given Glipizide (Glucotrol Xl) 5 mg PO BID [facility] Last Admin: 09/06/18 09:21 Dose: Not Given Sodium Chloride (Sodium Chloride 0.9%) 1,000 mls @ 60 mls/hr IV .[id number] [facility] Last Admin: 09/06/18 05:06 Dose: 60 mls/hr Insulin Detemir (Levemir) 7 unit SC HS [facility] Last Admin: 09/05/18 22:48 Dose: Not Given Insulin Detemir (Levemir) 8 unit SC DAILY [facility] Last Admin: 09/06/18 09:21 Dose: Not Given Insulin Human Regular (Humulin R) 4 units SC BRK [facility]; Protocol Last Admin: 09/06/18 08:43 Dose: Not Given Insulin Human Regular (Humulin R) 6 units SC ACD [facility]; Protocol Lisinopril (Zestril) 10 mg PO DAILY [facility] Last Admin: 09/06/18 09:21 Dose: Not Given Metoprolol Succinate (Toprol Xl) 50 mg PO BID [facility] Last Admin: 09/06/18 09:21 Dose: Not Given Nystatin (Nystop Topical Powder) 0 gm TOP BID [facility] Last Admin: 09/06/18 09:22 Dose: 1 applic Pantoprazole Sodium (Protonix Ec Tab) 40 mg PO BID [facility] Last Admin: 09/06/18 09:21 Dose: Not Given - Labs Labs: 09/05/18 14:45 09/05/18 14:45 PT 12.8 SECONDS (9.4-12.5) H 09/05/18 14:45 INR 1.15 09/05/18 14:45 APTT 32.7 Seconds (26.9-38.3) 09/05/18 14:45 - Constitutional Appears: No Acute Distress - Head Exam Head Exam: ATRAUMATIC, NORMOCEPHALIC - Eye Exam Eye Exam: Normal appearance, PERRL - Cardiovascular Exam Cardiovascular Exam: REGULAR RHYTHM, +S1, +S2 - GI/Abdominal Exam GI & Abdominal Exam: Soft, Normal Bowel Sounds - Neurological Exam Neurological Exam: Alert, Awake, Oriented x3 Additional comments: moves all extremities without difficulty Assessment and Plan - Assessment and Plan (Free Text) Plan: ITS Impressions Chest X-Ray 09/05/18 14:30 IMPRESSION: No active disease. Head CT 09/05/18 14:30 IMPRESSION: No acute intracranial abnormalities. No significant findings to account for the clinical presentation. No significant interval change compared to the prior examination(s). Carotid Artery Ultrasound 09/05/18 18:22 IMPRESSION: 1. 40-59 percent proximal left ICA stenosis 2. 20-39 percent proximal right ICA stenosis 3. Antegrade flow in both vertebral arteries. 88 yr old female with pmh sig for IDDM, Htn, HLD COPD and prior CVA who sustained mechanical fall at home now admitted for further cardiology and neurological evaluation #mechanical fall Neuro eval ordreed head ct negative carotid 40-59% left , 20-39% Right pt for echo assess cardiac status # DM ISS regimen # HLD Statin therapy PRior CVA awaiting neuro eval ad recs, pt on baby asa, statin patient awaiting p.t and O.t eval and UC as well as swallow eval for prior failed assessment will follow BPCI/TIC - BPCIA/TIC Educated pt/family on BPCIA/CIR/Med to Bed Programs: N/A Flyers given, including [facility] Beneficiary letter: N/A Pt/family verbalized understanding & agreed to program: N/A
--- NOTE | 2018-09-06 15:06 | CARD ---
APPROVED REPORT Date of service: 09/06/2018 EXAM: Two-dimensional and M-mode echocardiogram with Doppler and color Doppler. INDICATION DIZZINESS 2D DIMENSIONS Left Atrium (2D)3.5 (1.6-4.0cm)IVSd1.3 (0.7-1.1cm) LVDd3.5 (3.9-5.9cm)PWd1.3 (0.7-1.1cm) LVDs2.4 (2.5-4.0cm)FS (%) 29.3 % LVEF (%)57.2 (>50%) M-Mode DIMENSIONS Aortic Root2.10 (2.2-3.7cm)Aortic Cusp Exc.0.80 (1.5-2.0cm) Aortic Valve AoV Peak Zuaxiumb175.0cm/Kristian Peak GR.20mmHg Mitral Valve MV E Uzyrzizt57.9cm/sMV A Lawikhtz780.0cm/sE/A ratio0.7 TDI E/Lateral E'0.0E/Medial E'0.0 Tricuspid Valve TR Peak Ptsmqdhi599nh/sRAP [id number] Peak Gr.26mmHg [id number] LEFT VENTRICLE The left ventricle is normal size. There is borderline concentric left ventricular hypertrophy. The left ventricular function is normal. The left ventricular ejection fraction is within the normal range. There is normal LV segmental wall motion. Transmitral Doppler flow pattern is Grade I-abnormal relaxation pattern. RIGHT VENTRICLE The right ventricle is normal size. There is normal right ventricular wall thickness. The right ventricular systolic function is normal. ATRIA The left atrium size is normal. The right atrium size is normal. AORTIC VALVE The aortic valve is moderately sclerotic. No aortic regurgitation is present. There is no aortic valvular stenosis. MITRAL VALVE The mitral valve is moderately thickened. Mitral regurgitation is trace. TRICUSPID VALVE The tricuspid valve is normal in structure. There is trace tricuspid regurgitation. GREAT VESSELS The aortic root is normal in size. The IVC is normal in size and collapses >50% with inspiration. PERICARDIAL EFFUSION There is a small loculated anterior pericardial effusion. <Conclusion> There is borderline concentric left ventricular hypertrophy. The left ventricular function is normal. The left ventricular ejection fraction is within the normal range. There is normal LV segmental wall motion. Transmitral Doppler flow pattern is Grade I-abnormal relaxation pattern. The aortic valve is moderately sclerotic.
--- NOTE | 2018-09-06 16:19 | MRI ---
Date of service: 09/06/2018 PROCEDURE: MRI BRAIN WITHOUT CONTRAST HISTORY: slurred speech COMPARISON: Noncontrast head CT from 09/06/2018 TECHNIQUE: Multiplanar, multisequence MR images of the brain were obtained without intravenous contrast enhancement. FINDINGS: HEMORRHAGE: None DWI: There are multifocal areas of restricted diffusion in the right superior cerebellar hemisphere. BRAIN PARENCHYMA: There is T2/FLAIR hyperintensity corresponding to the areas of restricted diffusion in the right superior cerebellar hemisphere. There are old lacunar infarctions in the left pena radiata, basal ganglia and both cerebellar hemispheres. There is an old infarction in the left frontal subcortical white matter. There are moderate chronic microangiopathic changes. There is a partially empty sella, otherwise midline sagittal structures are normal. VENTRICLES: There is moderate age-related global parenchymal volume loss and proportionate enlargement of the ventricles and cortical sulci. CRANIUM: There is normal bone marrow signal pattern. There is mild hyperostosis frontalis interna. ORBITS: Grossly unremarkable. PARANASAL SINUSES/MASTOIDS: There is moderate polypoid mucosal thickening in the right maxillary sinus. The remaining included paranasal sinuses are predominantly clear. Mastoid air cells are clear. VASCULAR SYSTEM: There are normal signal voids in the larger intracranial arteries. OTHER FINDINGS: None. IMPRESSION: 1. Multifocal subacute infarctions in the right superior cerebellar hemisphere in the superior cerebellar artery territory. 2. Multiple lacunar infarctions in the left pena radiata, basal ganglia and both cerebellar hemispheres. 3. Old infarction in the left frontal subcortical white matter. 4. Moderate chronic microangiopathic changes and moderate age-related global parenchymal volume loss. Important findings were discussed with nurse came on the floor on 09/06/2018 at 4:15 p.m.
[2018-09-07] MEDS: Sodium Chloride 0.9% 1,000 ML IV SCH (04:56)
--- NOTE | 2018-09-07 08:03 | CON ---
DATE: 09/06/2018 HISTORY OF PRESENT ILLNESS: This is an 88-old female with past medical history of hypertension, diabetes, anemia, coronary artery disease, and COPD, and had a stroke in the past, came here because the patient fell at home. Her called ambulance and brought her here and found her on the floor. The patient was confused and slurred speech, could not talk properly. She walks with a walker at home and called to evaluate the patient. PAST MEDICAL HISTORY: As above. ALLERGIES: NOT ALLERGIC TO ANY MEDICATION. HOME MEDICATIONS: Protonix, metoprolol, insulin, glipizide, ferrous sulfate, enalapril, atorvastatin, and aspirin. SOCIAL HISTORY: , lives with her . Does not smoke. Does not drink. PHYSICAL EXAMINATION: HEENT: Normocephalic and atraumatic. NECK: Supple. NEUROLOGIC: Awake, oriented to self and place and mild bruise right below the right eye and facial contusion. Moves all the extremities spontaneously. Deep tendon reflexes are 1+, both plantars downgoing. Sensory appears intact. Cerebellar and gait deferred. IMPRESSION AND PLAN: Patient is an 88-year-old female with past medical history significant for hypertension, hyperlipidemia, coronary artery disease, chronic obstructive pulmonary disease, and previous stroke, came with falling a fall. MRI of the head showed cerebellar stroke. Patient also has a history of past stroke also. Family is at bedside. Continue present management. Workup in progress. We will followup. Wilman Montes De Oca MD
--- NOTE | 2018-09-07 08:12 | PN ---
DATE: 09/06/2018 SUBJECTIVE: The patient is a 88-year-old, seen and examined. is by the bedside. Offers no complaints. She has extreme weakness. According to him, she was not acting right yesterday and she fell. She has been increasingly weak off lately. PHYSICAL EXAMINATION: VITAL SIGNS: She is afebrile, pulse 75, respirations 18, blood pressure 129/65. LUNGS: Bilateral fair air flow. No rhonchi or crackle. HEART: S1 and S2 audible. ABDOMEN: Soft, nontender, no rebound, no guarding. NEUROLOGIC: The patient is awake, alert, oriented. Able to communicate. Moves all extremities. LABORATORY DATA: Hemoglobin A1c is 7.7%. She has echocardiogram done, pending and carotid Dopplers done, that is unremarkable. is 40 to 59%. ASSESSMENT AND PLAN: 1. Status post fall, status post slurred speech. 2. Non-insulin dependent diabetes. 3. Hypertension. 4. Hyperlipidemia. 5. History of coronary artery disease. 6. Generalized osteoarthritis. 7. Failed swallowing evaluation last night, awaiting another swallowing evaluation. PLAN: We will continue her medication. Monitor her blood sugar. Get MRI of the brain. Awaiting neurological evaluation. Awaiting physical therapy evaluation. We will reevaluate the patient in the morning. Ho Christina MD
[2018-09-07] MEDS: Insulin Detemir 100 units/ml Vial (Levemir) SC SCH ×2 (10:10→22:19)
[2018-09-07] MEDS: Insulin Regular 1 UNITS/0.01 ML ML SC SCH ×2 (10:10→17:07)
[2018-09-07] MEDS: Nystatin 100,000 Units/gm Topical Pow(15 gm) TOP SCH ×2 (10:10→17:33)
[2018-09-07] MEDS: Metoprolol Succinate 50 mg XL Tab PO SCH ×2 (10:11→17:07)
[2018-09-07] MEDS: Pantoprazole 40 mg EC Tab PO SCH ×2 (10:11→17:07)
[2018-09-07] MEDS: GlipiZIDE 5 mg SR Tab PO SCH ×2 (10:12→17:33)
[2018-09-07 10:49] LABS: HEMOGLOBIN 10.4 g/dL (12.0-16.0); MEAN CELL VOLUME 105.7 fl (80.0-105.0); MEAN CORPUSCULAR HEMOGLOBIN 35.1 pg (25.0-35.0); MEAN CORPUSCULAR HGB CONC 33.2 g/dl (31.0-37.0); RBC 2.96 10^6/uL (3.5-6.1); RED CELL DISTRIBUTION WIDTH 15.2 % (11.5-14.5); WHITE BLOOD COUNT 8.1 10^3/uL (4.5-11.0)
[2018-09-07 11:15] LABS: ALB/GLOB RATIO 1.2 (1.1-1.8); ALBUMIN 3.8 g/dL (3.0-4.8); ALT/SGPT 18 U/L (7-56); AST/SGOT 25 U/L (14-36); BLOOD UREA NITROGEN 19 mg/dL (7-21); CALCIUM 8.3 mg/dL (8.4-10.5); GFR NON-AFRICAN AMERICAN > 60
--- NOTE | 2018-09-07 14:27 | PN ---
DATE: 09/07/2018 SUBJECTIVE: The patient is 88 years old, seen and examined, had unstable gait, fell at home, has a right periorbital bruise. According to , she has been having difficulty walking lately. No chest pain or shortness of breath. No nausea or vomiting. No diarrhea. Eating and tolerating. PHYSICAL EXAMINATION: VITAL SIGNS: The patient is afebrile, pulse 89, respirations 20, blood pressure 136/71. LUNGS: Bilateral fair air flow. No rhonchi or crackle. HEART: S1 and S2 audible. ABDOMEN: Soft, obese, nontender. No rebound, no guarding. NEUROLOGIC: The patient is awake, alert, oriented. Able to communicate. Bilateral legs, no edema. LABORATORY DATA: WBC 8.1, hemoglobin 10.4, hematocrit 31.3, platelets 179. Chemistry: Sodium 138, potassium 4.1, chloride 106, CO2 of 24, BUN 19, creatinine 0.8. Blood sugar of 223, hemoglobin A1c 7.7. She had MRI of the brain done that shows multifocal subacute infarction in the right superior cerebellar hemisphere in the superior cerebellar artery territory, multiple lacunar infarct in the left pena radiata, basal ganglia and both cerebellar hemispheres, old infarct in the left frontal subcortical white matter, moderate chronic microangiopathic changes and moderate age-related global parenchymal volume loss. ASSESSMENT: 1. Multifocal subacute right superior cerebellar hemisphere and superior cerebellar artery territory infarction. 2. Multiple lacunar infarct in left pena radiata and basal ganglia and both cerebellar hemispheres. 3. Non-insulin dependent diabetes. 4. Hypertension. 5. Hyperlipidemia. 6. History of coronary artery disease status post angioplasties. 7. Deconditioning and unstable gait. 8. Generalized osteoarthritis. PLAN: We will continue the patient on lisinopril and metoprolol. The patient's oral intake is fair. We will discontinue IV fluids. Monitor her blood sugar. Awaiting TCU evaluation and acceptance. Once accepted, she can be transferred to TCU for rehab and gait. Ho Christina MD
[2018-09-08 08:08] LABS: MEAN CELL VOLUME 105.6 fl (80.0-105.0); MEAN CORPUSCULAR HGB CONC 33.1 g/dl (31.0-37.0); MEAN PLATELET VOLUME 10.1 fl (7.0-11.0); RBC 2.86 10^6/uL (3.5-6.1); RED CELL DISTRIBUTION WIDTH 15.3 % (11.5-14.5); WHITE BLOOD COUNT 8.1 10^3/uL (4.5-11.0)
[2018-09-08] MEDS: Insulin Regular 1 UNITS/0.01 ML ML SC SCH ×2 (09:32→17:42)
[2018-09-08] MEDS: GlipiZIDE 5 mg SR Tab PO SCH ×2 (09:40→17:51)
[2018-09-08] MEDS: Insulin Detemir 100 units/ml Vial (Levemir) SC SCH ×2 (09:41→22:02)
[2018-09-08] MEDS: Metoprolol Succinate 50 mg XL Tab PO SCH ×2 (09:42→17:48)
[2018-09-08] MEDS: Pantoprazole 40 mg EC Tab PO SCH ×2 (09:42→17:51)
[2018-09-08] MEDS: Nystatin 100,000 Units/gm Topical Pow(15 gm) TOP SCH ×2 (10:44→17:49)
--- NOTE | 2018-09-08 23:15 | DS ---
HISTORY OF PRESENT ILLNESS: The patient is an 88-year-old, who came in feeling weak, had unstable gait, and fell at home. Her who was out, saw on the camera that she fell, he called the son who came to pick her up. She developed a right periorbital bruise. She was brought to Emergency Room. CT scan and carotid Doppler was unremarkable; however, MRI showed subacute cerebellar multiple infarct. The patient was evaluated by Therapy, recommended TCU, so she is being transferred to TCU today. PHYSICAL EXAMINATION: GENERAL: She is awake, alert, oriented, and communicative. VITAL SIGNS: She is afebrile. Pulse 72, respirations 18, blood pressure 111/75. LUNGS: Bilateral fair airflow. No rhonchi or crackle. HEART: S1, S2 audible. ABDOMEN: Soft, nontender. No rebound. No guarding. NEUROLOGICAL: The patient is awake, alert, oriented, able to communicate, has generalized weakness. LABORATORY DATA: Blood sugar is 110. ASSESSMENT: 1. Status post fall. 2. Right periorbital bruise. 3. Subacute cerebellar multiple infarct and lacunar infarct in the left pena radiata, basal ganglia, and both cerebellar hemispheres. 4. Unstable gait. 5. Hypertension. 6. Non-insulin dependent diabetes. 7. Hypertension. PLAN: The patient will be transferred to TCU. She will be given physical therapy and gait training. We will continue her on Protonix. She will be on metoprolol, lisinopril. Monitor her blood sugar. She is on glipizide 5 mg twice a day. Continue her on Lipitor and aspirin. We will follow up the patient in a.m. Ho Christina MD
[2018-09-09] MEDS: Insulin Regular 1 UNITS/0.01 ML ML SC SCH ×2 (09:51→17:47)
[2018-09-09] MEDS: Insulin Detemir 100 units/ml Vial (Levemir) SC SCH ×2 (10:03→22:52)
[2018-09-09] MEDS: GlipiZIDE 5 mg SR Tab PO SCH ×2 (10:03→17:47)
[2018-09-09] MEDS: Metoprolol Succinate 50 mg XL Tab PO SCH ×2 (10:04→17:42)
[2018-09-09] MEDS: Pantoprazole 40 mg EC Tab PO SCH ×2 (10:04→17:47)
[2018-09-09] MEDS: Nystatin 100,000 Units/gm Topical Pow(15 gm) TOP SCH ×2 (10:04→19:00)
--- NOTE | 2018-09-09 12:41 | PN ---
DATE: 09/09/2018 SUBJECTIVE: The patient has no complaints of any chest pain. No shortness of breath. No headaches. PHYSICAL EXAMINATION: VITAL SIGNS: Temperature 98, pulse is 67, blood pressure 114/61 and respirations 20. GENERAL: The patient is lying in bed, flat, comfortable. HEENT: No oral lesion. Anicteric sclerae. Moist mucosa. NECK: No JVD, adenopathy, or thyromegaly. CARDIOVASCULAR: S1 and S2, regular. No murmurs, rubs, or gallops. LUNGS: Clear to auscultation bilaterally. No wheeze, rales, or rhonchi. ABDOMEN: Bowel sounds are positive, soft, nontender and nondistended. EXTREMITIES: No cyanosis, clubbing or edema. LABORATORY DATA: White count of 8.1 and hemoglobin 10. Creatinine 0.8. ASSESSMENT: 1. Status post fall. 2. Right periorbital trauma. 3. Cerebellar infarct. 4. Gait instability. 5. Hypertension. 6. Diabetes type II. PLAN: The patient is awaiting to go to transitional care unit. The patient is on aspirin daily for her stroke. She is receiving Glucotrol for her diabetes type II. She is also on insulin. She is on Lipitor for dyslipidemia. She is on Lisinopril for her hypertension. She is on heart healthy diet. She otherwise feels well. Floyd Rg MD
[2018-09-09 21:36] VITALS: RESP 20; O2SAT 96
[2018-09-10] MEDS: Insulin Regular 1 UNITS/0.01 ML ML SC SCH (08:59)
[2018-09-10] MEDS: Pantoprazole 40 mg EC Tab PO SCH (10:38)
[2018-09-10] MEDS: GlipiZIDE 5 mg SR Tab PO SCH (10:38)
[2018-09-10] MEDS: Nystatin 100,000 Units/gm Topical Pow(15 gm) TOP SCH (10:38)
[2018-09-10] MEDS: Insulin Detemir 100 units/ml Vial (Levemir) SC SCH (10:38)
[2018-09-10] MEDS: Metoprolol Succinate 50 mg XL Tab PO SCH (10:39)
--- NOTE | 2018-09-10 13:47 | PN ---
DATE: 09/10/2018 SUBJECTIVE: The patient is 88-year-old, seen and examined, lying in bed, seems to be comfortable, came in with weakness and fall at home and was found to have multiple cerebellar subacute strokes, awaiting transfer to TCU. PHYSICAL EXAMINATION GENERAL: She is awake, alert, oriented, and communicative. VITAL SIGNS: She is afebrile, pulse 80, respirations 20, and blood pressure 111/52. LUNGS: Bilateral fair airflow. No rhonchi or crackle. HEART: S1 and S2 audible. ABDOMEN: Soft, nontender and obese. No hepatosplenomegaly. NEUROLOGIC: The patient is awake, alert, oriented, and able to communicate. Has generalized weakness. LABORATORY DATA: Blood sugar is 178. ASSESSMENT: 1. Status post fall. 2. Subacute cerebellar stroke. 3. Periorbital bruise. 4. Deconditioning and difficulty walking. 5. Non-insulin dependent diabetes. 6. Hypertension. PLAN: Currently the patient is stable. The patient is accepted to TCU and will be transferred today to TCU. Ho Christina MD
[2018-09-10 14:56] VITALS: BP 121/60; PULSE 76; TEMP 98.6
== END 2018-09-10 15:24 | DRG 66 ==
LOC: ED 14:10 → ERH 15:44 → 2RNO 17:26 → 5RSO 09-07 19:25
PROVIDERS: ADMIT Internal Medicine; ATTEND Internal Medicine
DX: I63.81 Other cerebral infarction due to occlusion or stenosis of small artery (principal); I63.541 Cerebral infarction due to unspecified occlusion or stenosis of right cerebellar artery; R26.2 Difficulty in walking, not elsewhere classified; I10 Essential (primary) hypertension; E11.9 Type 2 diabetes mellitus without complications; S00.11XA Contusion of right eyelid and periocular area, initial encounter; W01.0XXA Fall on same level from slipping, tripping and stumbling without subsequent striking against object, initial encounter; R47.81 Slurred speech; R29.704 NIHSS score 4; E78.5 Hyperlipidemia, unspecified; I25.10 Atherosclerotic heart disease of native coronary artery without angina pectoris; J44.9 Chronic obstructive pulmonary disease, unspecified; M15.9 Polyosteoarthritis, unspecified; Z95.5 Presence of coronary angioplasty implant and graft; Z79.4 Long term (current) use of insulin

== ENCOUNTER 2018-09-10 15:24 | Inpatient (IN) | payer OTHER, MEDICARE ==
[2018-09-10] MEDS: Insulin Regular 1 UNITS/0.01 ML ML SC SCH (17:39)
[2018-09-10] MEDS: GlipiZIDE 5 mg SR Tab PO SCH (17:40)
[2018-09-10] MEDS: Metoprolol Succinate 50 mg XL Tab PO SCH (17:40)
[2018-09-10] MEDS: Nystatin 100,000 Units/gm Topical Pow(15 gm) TOP SCH (17:55)
[2018-09-10] MEDS: Insulin Detemir 100 units/ml Vial (Levemir) SC SCH (21:43)
[2018-09-11] MEDS: Pantoprazole 40 mg EC Tab PO SCH ×2 (05:50→15:51)
[2018-09-11] MEDS: Insulin Regular 1 UNITS/0.01 ML ML SC SCH ×2 (06:58→17:36)
[2018-09-11] MEDS: GlipiZIDE 5 mg SR Tab PO SCH ×2 (07:54→17:36)
[2018-09-11] MEDS: Metoprolol Succinate 50 mg XL Tab PO SCH ×2 (07:54→17:37)
[2018-09-11] MEDS: Insulin Detemir 100 units/ml Vial (Levemir) SC SCH ×2 (11:07→21:29)
[2018-09-11] MEDS: Nystatin 100,000 Units/gm Topical Pow(15 gm) TOP SCH ×2 (11:07→17:36)
--- NOTE | 2018-09-11 21:34 | HP ---
DATE OF EXAM: 09/11/2018 HISTORY OF PRESENT ILLNESS: The patient is an 88-year-old who was brought to emergency room after she had fall at home. She fell on her face, sustained right periorbital bruise. She had neuro workup done on acute care, so she was found to have multiple cerebellar subacute stroke. The patient was evaluated by PT and recommended TCU, so she was transferred to TCU last night. Denies any headache. No nausea or vomiting. No diarrhea. Eating and tolerating. PAST MEDICAL HISTORY: Significant for: 1. Hypertension. 2. History of previous CVAs. 3. Insulin-dependent diabetes. 4. Chronic anemia. 5. Hyperlipidemia. 6. Coronary artery disease. 7. History of COPD. 8. History of GI bleed in the past. ALLERGIES: SHE IS NOT ALLERGIC TO ANY MEDICATION. MEDICATIONS AT HOME: She is on: 1. Aspirin 81 daily. 2. She is on atorvastatin 10 mg daily. 3. Enalapril 10 mg daily. 4. Ferrous sulfate 325 daily. 5. Glipizide 5 mg twice a day. 6. Lantus 15 units at bedtime. 7. Regular insulin 4 units before breakfast and 6 units before dinner. 8. Metoprolol 50 mg twice a day. SOCIAL HISTORY: She is and lives with her . PHYSICAL EXAMINATION: VITAL SIGNS: She is afebrile, pulse 72, respirations 18, and blood pressure 155/55. LUNGS: Bilateral good airflow. No rhonchi or crackle. HEART: S1 and S2 audible. ABDOMEN: Soft and nontender. No rebound. No guarding. NEUROLOGIC: She is awake, alert, oriented, and communicative. LABORATORY DATA: Blood sugar is 151. ASSESSMENT: 1. Subacute cerebellar stroke. 2. Hypertension. 3. Hyperlipidemia. 4. Insulin-dependent diabetes. 5. Deconditioning and difficulty walking. PLAN: We will continue the patient on current medical regimen. Encourage physical therapy, gait training, and we will follow up the patient in a.m. Ho Christina MD
[2018-09-12] MEDS: Pantoprazole 40 mg EC Tab PO SCH ×2 (05:48→16:42)
[2018-09-12] MEDS: Insulin Regular 1 UNITS/0.01 ML ML SC SCH ×2 (06:55→17:40)
[2018-09-12] MEDS: GlipiZIDE 5 mg SR Tab PO SCH ×2 (07:49→17:40)
[2018-09-12] MEDS: Metoprolol Succinate 50 mg XL Tab PO SCH ×2 (07:50→17:43)
[2018-09-12] MEDS: Insulin Detemir 100 units/ml Vial (Levemir) SC SCH ×2 (10:33→22:43)
[2018-09-12] MEDS: Nystatin 100,000 Units/gm Topical Pow(15 gm) TOP SCH ×2 (10:34→17:42)
--- NOTE | 2018-09-12 13:29 | PN ---
DATE: 09/12/2018 SUBJECTIVE: The patient is 88-year-old, seen and examined, doing well, eating and tolerating. No nausea or vomiting. No diarrhea. Bowels are okay. No abdominal pain. No chest pain. No shortness of breath. PHYSICAL EXAMINATION: VITAL SIGNS: She is afebrile, pulse 73, respirations 18, and blood pressure 119/61. LUNGS: Bilateral fair airflow. No rhonchi or crackle. HEAR: S1 and S2 audible. ABDOMEN: Soft, obese, and nontender. No rebound. No guarding. NEUROLOGIC: She is awake, alert, oriented, and communicative. Moves all extremities. EXTREMITIES She has right periorbital bruise that seems to be resolving. ASSESSMENT: 1. Subacute cerebellar stroke. 2. Deconditioning difficulty walking. 3. Unstable gait. 4. Non-insulin dependent diabetes. 5. Hypertension. 6. Peptic ulcer disease. 7. Status post cerebrovascular accident in the past. PLAN: MAR reviewed. Continue current medications. Continue physical therapy. Monitor blood sugar. We will followup. Ho Christina MD
[2018-09-13] MEDS: Pantoprazole 40 mg EC Tab PO SCH ×2 (05:12→17:00)
[2018-09-13] MEDS: Insulin Regular 1 UNITS/0.01 ML ML SC SCH ×2 (06:34→17:14)
[2018-09-13] MEDS: GlipiZIDE 5 mg SR Tab PO SCH ×2 (07:59→17:14)
[2018-09-13] MEDS: Metoprolol Succinate 50 mg XL Tab PO SCH ×2 (07:59→17:17)
[2018-09-13] MEDS: Insulin Detemir 100 units/ml Vial (Levemir) SC SCH ×2 (11:00→21:46)
[2018-09-13] MEDS: Nystatin 100,000 Units/gm Topical Pow(15 gm) TOP SCH ×2 (11:00→17:16)
[2018-09-13 16:49] VITALS: RESP 18
--- NOTE | 2018-09-13 18:52 | PN ---
DATE: 09/13/2018 SUBJECTIVE: The patient is 88 years old, seen and examined, lying in bed, seemed to be comfortable, fully awake, alert, and oriented, communicating well. PHYSICAL EXAMINATION: VITAL SIGNS: She is afebrile, pulse 70, respirations 19, and blood pressure 126/69. LUNGS: Bilateral fair airflow, no rhonchi or crackles. HEART: S1 and S2 audible. ABDOMEN: Soft, nontender, no rebound, and no guarding. NEUROLOGIC: She is awake and alert, oriented, communicative. LABORATORY DATA: Blood sugar is 184. ASSESSMENT: 1. Status post transient ischemic attack. 2. Status post subacute cerebellar infarct. 3. Status post fall. 4. Left periorbital bruise. 5. Hypertension. 6. Hyperlipidemia. 7. Mvc-fvxegdt-xlwictaty diabetes. PLAN: We will continue the patient on current medications, continue physical therapy, continue gait training. We will follow with you. Ho Christina MD
[2018-09-14] MEDS: Pantoprazole 40 mg EC Tab PO SCH ×2 (06:08→16:20)
[2018-09-14] MEDS: Insulin Regular 1 UNITS/0.01 ML ML SC SCH ×2 (07:00→16:35)
[2018-09-14] MEDS: GlipiZIDE 5 mg SR Tab PO SCH ×2 (08:05→17:54)
[2018-09-14] MEDS: Metoprolol Succinate 50 mg XL Tab PO SCH ×2 (08:06→17:55)
[2018-09-14] MEDS: Insulin Detemir 100 units/ml Vial (Levemir) SC SCH ×2 (10:12→21:53)
[2018-09-14] MEDS: Nystatin 100,000 Units/gm Topical Pow(15 gm) TOP SCH ×2 (10:13→17:54)
--- NOTE | 2018-09-15 01:17 | PN ---
DATE: 09/14/2018 SUBJECTIVE: The patient is an 88-year-old, seen and examined, very excited since she is going to have a bath, feels a lot better, participating in therapy, eating and tolerating. Fully awake, alert and oriented. PHYSICAL EXAMINATION: VITAL SIGNS: She is afebrile. Pulse 93, respirations 18, blood pressure 100/48. LUNGS: Bilateral fair air flow. No rhonchi or crackle. HEART: S1 and S2 audible. ABDOMEN: Soft. Nontender. No rebound. No guarding. NEUROLOGIC: The patient is awake and alert, able to communicate. LABORATORY DATA: Blood sugar is 172. ASSESSMENT: 1. Status post fall. 2. Multiple subacute cerebellar infarcts. 3. Xnr-ytvwptc-ixxqroyfd diabetes. 4. Hypertension. 5. Hyperlipidemia. 6. Deconditioning and difficulty walking. PLAN: We will continue the patient on current medication, encourage ambulation, monitor blood sugar. We will follow up in a.m. Ho Christina MD
[2018-09-15] MEDS: Pantoprazole 40 mg EC Tab PO SCH ×2 (05:39→16:03)
[2018-09-15] MEDS: Insulin Regular 1 UNITS/0.01 ML ML SC SCH ×2 (07:17→16:04)
[2018-09-15] MEDS: GlipiZIDE 5 mg SR Tab PO SCH ×2 (08:31→18:03)
[2018-09-15] MEDS: Metoprolol Succinate 50 mg XL Tab PO SCH ×2 (08:31→18:04)
[2018-09-15] MEDS: Nystatin 100,000 Units/gm Topical Pow(15 gm) TOP SCH ×2 (09:22→18:03)
[2018-09-15] MEDS: Insulin Detemir 100 units/ml Vial (Levemir) SC SCH ×2 (12:09→21:15)
--- NOTE | 2018-09-15 16:54 | PN ---
DATE: 09/15/2018 SUBJECTIVE: The patient is 88 years old, seen and examined, doing well, sitting in chair, reading newspaper. Denies any nausea. vomiting, or diarrhea. She is doing well in therapy, participating very well. PHYSICAL EXAMINATION: VITAL SIGNS: She is afebrile, pulse 93, respiration 18, blood pressure 119/61. LUNGS: Bilateral fair air flow. No rhonchi or crackles. HEART: S1 and S2 audible. ABDOMEN: Soft, obese, nontender, no rebound, no guarding. NEUROLOGIC: The patient is awake, alert, oriented and communicative. EXTREMITIES: Bilateral legs no edema. She has periorbital bruise, seems to be resolving. LABORATORY DATA: Blood sugar is 250. ASSESSMENT: 1. Subacute cerebral infarct. 2. Status post fall with periorbital contusion. 3. History of hypertension. 4. Non-insulin dependent diabetes. PLAN: We will continue current medication. I will increase her Levemir to 12 units since her morning blood sugar is running high. We will continue physical therapy. We will follow up the patient in a.m. Ho Christina MD
[2018-09-16] MEDS: Pantoprazole 40 mg EC Tab PO SCH ×2 (06:34→16:19)
[2018-09-16] MEDS: Insulin Regular 1 UNITS/0.01 ML ML SC SCH ×2 (06:35→17:21)
[2018-09-16] MEDS: Metoprolol Succinate 50 mg XL Tab PO SCH ×2 (09:52→17:22)
[2018-09-16] MEDS: GlipiZIDE 5 mg SR Tab PO SCH ×2 (09:52→17:22)
[2018-09-16] MEDS: Nystatin 100,000 Units/gm Topical Pow(15 gm) TOP SCH ×2 (09:54→17:22)
[2018-09-16] MEDS: Insulin Detemir 100 units/ml Vial (Levemir) SC SCH ×2 (10:18→21:23)
--- NOTE | 2018-09-16 20:28 | PN ---
DATE: 09/16/2018 SUBJECTIVE: The patient is an 88-year-old, seen and examined, lying in bed, seems to be comfortable. is by the bedside. Offers no complaints. Eating and tolerating, ambulating, participating in therapy. PHYSICAL EXAMINATION: VITAL SIGNS: She is afebrile. Pulse 64, respirations 18, blood pressure 123/50. LUNGS: Bilateral fair airflow. No rhonchi or crackle. HEART: S1, S2 audible. ABDOMEN: Soft, nontender. No rebound. No guarding. NEUROLOGICAL: The patient is awake, alert, oriented. Able to communicate. No sensory or motor deficits. SKIN: She has resolving bruise around her periorbital area. LABORATORY DATA: Blood sugar is 154. ASSESSMENT: 1. Status post bilateral subacute cerebellar infarct. 2. Status post fall. 3. Periorbital contusion. 4. History of cerebrovascular accident in the past. 5. Hypertension. 6. Non-insulin dependent diabetes. PLAN: The patient is currently on aspirin, iron supplement. Her blood sugar is being monitored. She is on statins, beta blockers. Discharge plan for Monday. Ho Christina MD
[2018-09-17] MEDS: Pantoprazole 40 mg EC Tab PO SCH ×2 (05:20→16:23)
[2018-09-17] MEDS: Insulin Regular 1 UNITS/0.01 ML ML SC SCH ×2 (07:25→17:22)
[2018-09-17] MEDS: Metoprolol Succinate 50 mg XL Tab PO SCH ×2 (08:02→17:22)
[2018-09-17] MEDS: GlipiZIDE 5 mg SR Tab PO SCH ×2 (08:02→17:22)
[2018-09-17] MEDS: Insulin Detemir 100 units/ml Vial (Levemir) SC SCH ×2 (09:31→21:41)
[2018-09-17] MEDS: Nystatin 100,000 Units/gm Topical Pow(15 gm) TOP SCH ×2 (09:32→17:57)
--- NOTE | 2018-09-17 15:42 | PN ---
DATE: 09/17/2018 SUBJECTIVE: The patient is an 88-year-old, seen and examined. Doing well. Eating and tolerating. No nausea. No vomiting. No diarrhea. PHYSICAL EXAMINATION: VITAL SIGNS: The patient is afebrile. Pulse 70, respirations 18 and blood pressure 98/54. LUNGS: Bilateral good airflow. No rhonchi or crackle. HEART: S1 and S2, audible. ABDOMEN: Soft and nontender. No rebound. No guarding. NEUROLOGICAL: The patient is awake, alert, oriented and able to communicate. Doing well in therapy. ASSESSMENT: 1. Status post cerebellar infarct. 2. Hypertension. 3. Hyperlipidemia. 4. Non-insulin dependant diabetes. PLAN: We will continue current medication, doing well and possible discharge plan in . Ho Christina MD
[2018-09-17 16:36] VITALS: TEMP 97.6
[2018-09-18] MEDS: Pantoprazole 40 mg EC Tab PO SCH (05:39)
[2018-09-18] MEDS: Insulin Regular 1 UNITS/0.01 ML ML SC SCH (07:27)
[2018-09-18] MEDS: Metoprolol Succinate 50 mg XL Tab PO SCH (08:19)
[2018-09-18] MEDS: GlipiZIDE 5 mg SR Tab PO SCH (08:19)
[2018-09-18] MEDS: Insulin Detemir 100 units/ml Vial (Levemir) SC SCH (09:50)
[2018-09-18] MEDS: Nystatin 100,000 Units/gm Topical Pow(15 gm) TOP SCH (09:51)
[2018-09-18 09:53] VITALS: BP 132/74
[2018-09-18 13:16] VITALS: PULSE 78; O2SAT 96
--- NOTE | 2018-09-18 21:28 | DS ---
HISTORY OF PRESENT ILLNESS: The patient is an 88-year-old, seen and examined. The patient was initially brought to emergency room because she fell at home, sustained facial injury, and was found to have periorbital contusion. She has MRI done that shows bilateral subacute cerebellar infarct that was most probable reason of her fall because she was unstable on walking. She was transferred to TCU for rehab, doing well, and participated in therapy. PHYSICAL EXAMINATION: GENERAL: Today; she is awake, alert, oriented, and communicative. VITAL SIGNS: She is afebrile, pulse 89, respirations 18, and blood pressure 132/74. LUNGS: Bilateral fair airflow. No rhonchi or crackle. HEART: S1 and S2 audible. ABDOMEN: Soft and nontender. No rebound. No guarding. NEUROLOGICAL: The patient is awake, alert, oriented, and able to communicate. EXTREMITIES: Bilateral leg, no edema. ASSESSMENT: 1. Status post fall. 2. Subacute cerebellar infarct. 3. History of transient ischemia attack in the past. 4. Gastritis. 5. Hypertension. 6. Hyperlipidemia. 7. Noninsulin-dependent diabetes. 8. Chronic anemia. PLAN: The patient is being discharged home. She will follow up with 2-g sodium diabetic diet. We will continue her on Protonix 40 daily, metoprolol 50 mg twice a day, and lisinopril 5 mg daily. She will resume her glipizide 5 mg twice a day, ferrous sulfate 325 daily, atorvastatin 10 mg daily, and aspirin 81 daily. She will follow up with her PMD, Dr. Mckeon . Ho Crhistina MD
== END 2018-09-18 13:25 | disposition home or self-care (01) | DRG 556 ==
LOC: TRCU 15:24
PROVIDERS: ADMIT Internal Medicine; ATTEND Internal Medicine
PROC: F07Z9FZ Gait Training/Functional Ambulation Treatment using Assistive, Adaptive, Supportive or Protective Equipment (ICD-10-PCS; principal; 2018-09-12)
PROC: F07Z8FZ Transfer Training Treatment using Assistive, Adaptive, Supportive or Protective Equipment (ICD-10-PCS; 2018-09-12)
PROC: F07L6ZZ Therapeutic Exercise Treatment of Musculoskeletal System - Lower Back / Lower Extremity (ICD-10-PCS; 2018-09-12)
PROC: F08Z1FZ Dressing Techniques Treatment using Assistive, Adaptive, Supportive or Protective Equipment (ICD-10-PCS; 2018-09-13)
PROC: F08Z2FZ Grooming/Personal Hygiene Treatment using Assistive, Adaptive, Supportive or Protective Equipment (ICD-10-PCS; 2018-09-14)
DX: R26.2 Difficulty in walking, not elsewhere classified (principal); I69.30 Unspecified sequelae of cerebral infarction; S00.12XD Contusion of left eyelid and periocular area, subsequent encounter; I10 Essential (primary) hypertension; E78.5 Hyperlipidemia, unspecified; E11.9 Type 2 diabetes mellitus without complications; D64.9 Anemia, unspecified; I25.10 Atherosclerotic heart disease of native coronary artery without angina pectoris; J44.9 Chronic obstructive pulmonary disease, unspecified; K29.70 Gastritis, unspecified, without bleeding; W19.XXXD Unspecified fall, subsequent encounter; Z79.4 Long term (current) use of insulin

== ENCOUNTER 2018-11-26 05:56 | Outpatient (CLI) | payer MEDICARE | END 2018-11-26 05:57 | disposition home or self-care (01) | LOC: CARDIO 05:56 ==